=== PATIENT | male | born 1980 | race Caucasian/White ===

== ENCOUNTER → 2020-09-15 15:02 | Outpatient (BNVA) | payer MEDICARE, SELFPAY | PROVIDERS: PCP Hospitalist; Visit Provider Family Medicine Adult Medicine | DX: Z76.89 Persons encountering health services in other specified circumstances (principal) ==

== ENCOUNTER 2020-10-13 | Outpatient (REF) | payer MEDICARE, SELFPAY | END 2020-10-13 00:01 | LOC: CF | PROVIDERS: PCP Hospitalist; Visit Provider Family Medicine Adult Medicine | DX: Z87.81 Personal history of (healed) traumatic fracture (principal); Z79.899 Other long term (current) drug therapy | CPT/HCPCS: 99212; Q3014 ==

== ENCOUNTER → 2020-10-15 13:58 | Outpatient (BNVA) | payer MEDICARE, SELFPAY | PROVIDERS: PCP Hospitalist; Visit Provider Internal Medicine | DX: R07.2 Precordial pain (principal); R94.31 Abnormal electrocardiogram [ECG] [EKG] | CPT/HCPCS: 93005; 99202 ==

== ENCOUNTER → 2020-10-27 08:14 | Outpatient (BNVA) | payer MEDICARE, SELFPAY | PROVIDERS: PCP Hospitalist; Visit Provider Family Medicine Adult Medicine | DX: Z87.81 Personal history of (healed) traumatic fracture (principal) | CPT/HCPCS: 99212 ==

== ENCOUNTER → 2020-11-10 08:33 | Outpatient (REF) | payer MEDICARE, SELFPAY ==
--- NOTE | 2020-11-10 08:37 | CA_ITS ---
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 The visually estimated ejection fraction is between 55-60%. - No obvious valvular pathology seen on this study. Findings Left Ventricle Normal left ventricular cavity size. There is normal left ventricular wall thickness. The left ventricular systolic function is normal. The visually estimated ejection fraction is between 55-60%. There is no evidence of regional wall motion abnormalities. Diastolic function is normal for age. Right Ventricle Normal right ventricular cavity size and systolic function. Atria Both atria are normal in size. Aortic Valve There is a normal trileaflet aortic valve. There is no aortic valve stenosis. There is no aortic valve regurgitation. Mitral Valve The mitral valve appears normal. There is trace mitral valve regurgitation. There is no mitral valve stenosis. Pulmonic Valve The pulmonic valve was not well visualized. Tricuspid Valve Normal tricuspid valve structure. There is trace tricuspid valve regurgitation. The pulmonary artery systolic pressure is normal. Great Vessels The aortic annulus, sinuses of valsalva, and asc aorta are normal in size. Venous The inferior vena cava is normal in size and collapses less than 50% with inspiration. Pericardium/Pleural There is no evidence of pericardial effusion. Prior Study Comparison No prior study available for comparison. Recommendations, Care & Conclusions No obvious valvular pathology seen on this study. Measurements 2D Linear Measurements IVSd: 0.90 0.6-0.9/0.6-1.0 cm LVIDd: 4.51 3.9-5.3/4.2-5.9 cm LVIDd Index: 2.21 2.4-3.2/2.2-3.1 cm/m2 LVIDs: 3.05 2.0-3.6 cm LVPWd: 0.82 0.7-1.1 cm Ao Root: 3.20 2.1-3.5 cm LA Diam: 3.20 2.7-3.8/3.0-4.0 cm LAIDs Index: 1.57 1.5-2.3 cm/m2 LV Mass: 155.59 67-162/88-224 g LV Mass Index: 76.27 43-95/49-115 g/m2 LVOT Diam: 2.40 3.0+(-)1.3 cm Mitral Valve MV Pk E: 0.51 MV PK A: 0.44 MV Decel Time: 137.00 E/A: 1.20 E'Lateral: 16.10 E'Medial: 12.50 E/E' Med: 4.10 E/E' Lat: 3.20 PHT: 40.00 MVA PHT: 5.50 Decel Dillon: 3.74 Aortic Valve AoV Pk Gregory: 0.98 AoV Mn Gregory: 0.63 AoV VTI: 0.22 AoV Pk Grad: 4.00 Aov Mn Grad: 2.00 AMAURY Cont.VTI: 3.03 LVOT LVOT Pk Gregory: 0.66 LVOT Mn Gregory: 0.40 LVOT VTI: 0.14 LVOT Pk Grad: 2.00 LVOT Mn Grad: 1.00 LVOT Diam: 2.40 LVOT Area: 4.52 Diastolic Function MV Pk E: 0.51 MV Pk A: 0.44 E/A: 1.20 E'Medial: 12.50 E/E' Med: 4.10 E' Laterial: 16.10 E/E' Lat: 3.20 Great Vessels Aorta Ao Root-2D: 3.20 2.0-3.7 cm Ao Asc: 3.20 2.1-3.4 cm Pulmonary Valve PV Pk Gregory: 1.05 Peak PV Grad: 4.00 Updated in Other Vendor System with Status of Final Dex Piedra MD electronically signed on 11/10/2020 12:37:38 PM with status of Final
--- NOTE | 2020-11-10 09:30 | CA_ITS ---
Acquisition Time: 2020-11-10 10:24:51 Total Exercise Time: 00:07:39 Test Indications: Chest Pain Medications: Protocol: LOREN Max HR: 190 BPM 104% of Pred: 182 BPM Max BP: 152/080 mmHG Max Work Load: 9.5 METS Exercise stress MIBI using Loren protocol total of 7 min 39 sec. 9.5 METS, MAPHR up to 90 %. Pt c/o 4/10 chest pain feeling like pinching. that resolves in recovery. EKG with no arrhythmias, no ischemic changes. Nuclear images to follow. Normotensive response to exercise. Test reviewed with Dr. Piedra. Referred By: Dex Piedra Overread By: Whit Santos
--- NOTE | 2020-11-10 09:58 | NM_ITS ---
EXERCISE MYOCARDIAL PERFUSION STUDY INDICATION: Chest pain, assess for coronary disease and ischemia TECHNIQUE: The patient was brought in for an exercise perfusion study on 11/10/2020. Patient performed exercise as per Raul protocol and was injected 30 mCi of sestamibi once target heart rate was achieved. Images were obtained using the SPECT gamma camera interlaced with the gating device. Images were obtained in supine position. Resting perfusion study was not performed as the patient refused to return. Total DLP 43mGy-cm. Images were processed with the software and compared side to side in short axis, horizontal long axis and vertical long axis views. FINDINGS: Raw images were reviewed. The stress perfusion study showed mildly diminished tracer uptake in the basal septal wall. With CT attenuation correction this improves suggesting attenuation artifact. The gated study shows normal LV systolic function with calculated LVEF of 73%. LV cavity is normal in size. The gated study shows normal wall thickening and contraction of segments. Resting acquisition was not performed as the patient failed to return. The findings are consistent with small perfusion abnormality in the basal septum that could be artifactual/related to valve plane. Otherwise unremarkable. NM/NM cardiolite stress test IMPRESSION: 1. Myocardial perfusion imaging study shows small perfusion defect in the basal septum that could be artifactual. Otherwise unremarkable. Resting images not acquired as the patient did not return. 2. Gated LVEF is 73%. EKG component of the test reported separately.
== END ==
LOC: HO.CARD 08:33
PROVIDERS: Visit Provider Internal Medicine
DX: R07.2 Precordial pain (principal); I25.10 Atherosclerotic heart disease of native coronary artery without angina pectoris
CPT/HCPCS: 78452; 93017; 93306; A9500

== ENCOUNTER → 2020-12-22 14:02 | Outpatient (BNVA) | payer MEDICARE, OTHER, SELFPAY | PROVIDERS: PCP Hospitalist; Visit Provider Internal Medicine Gastroenterology | DX: D89.40 Mast cell activation, unspecified (principal); M25.50 Pain in unspecified joint | CPT/HCPCS: Q3014 ==

== ENCOUNTER 2021-01-05 08:00 | Outpatient (REF) | payer MEDICARE, SELFPAY ==
--- NOTE | ~2021-01-05 | US_ITS ---
EXAMINATION: US RETROPERITONEUM. CLINICAL INFORMATION: Mast cell disorder. Evaluate celiac or SMA disease COMPARISON: None TECHNIQUE: Color duplex imaging of the abdominal aorta, celiac artery and SMA was performed. FINDINGS: On Doppler imaging, proximal to SMA the abdominal aorta velocity measures 130 cm/sec. Distal to the SMA, the velocity measures 104 cm/sec. The celiac axis velocity measures 164 cm/sec in inspiration supine, 162 cm/sec in expiration supine, upright sitting inspiration velocity measures 160 cm/sec and upright sitting expiration measures 208 cm/sec. Inferior mesenteric artery velocity measures 76.1 cm/sec. Splenic artery velocity measures 84.9 cm/sec. US/US SMA IMPRESSION: 1. Superior mesenteric and celiac artery velocities in supine and upright views are normal. 2. The abdominal aorta is of normal caliber with normal velocity. 3. The main splenic artery velocity is normal as well.
--- NOTE | ~2021-01-05 | US_ITS ---
EXAMINATION: US COMPLETE ABDOMEN WITH LIVER ELASTOGRAPHY CLINICAL INFORMATION: Generalized abdominal pain. Mass cell disorder. COMPARISON: None. TECHNIQUE: Real-time imaging of the abdominal viscera. Noninvasive ultrasound liver fibrosis assessment is performed using Zoey ElastPQ point quantification shear wave elastography (pSWE) with a 5 MHz transducer. Multiple elastography samples are obtained. FINDINGS: PANCREAS: The pancreas is normal in size and contour and echogenicity. There is no pancreatic ductal distention or retroperitoneal effusion. ABDOMINAL AORTA: The proximal, middle, and distal aortic segments are normal in caliber. INFERIOR VENA CAVA: Visualized portions are normal. LIVER: Normal. The liver demonstrates normal size, contour and echogenicity. No focal lesion or intrahepatic biliary duct dilatation. The right lobe measures 14.5 cm in length. The left lobe measures 5.7 cm in length. Portal flow is towards the liver (hepatopetal). Shear wave liver elastography median stiffness is 1.54 m/s (reference: normal median stiffness is 1.3 m/s or less). IQR/median stiffness to assess sampling precision is 0.31 (reference: optimal IQR/median stiffness is 0.15 or less). GALLBLADDER: Normal. The gallbladder is physiologically distended without evidence of stones, sludge, polyps, wall thickening or pericholecystic fluid. COMMON BILE DUCT: Normal in caliber measuring 0.4 cm in diameter. RIGHT KIDNEY: Normal. No hydronephrosis. No renal calculi or focal parenchymal lesions. The kidney measures 10.3 cm in maximum dimension. LEFT KIDNEY: Normal. No hydronephrosis. No renal calculi or focal parenchymal lesions. The kidney measures 10.2 cm in maximum dimension. SPLEEN: Normal. The spleen measures 12.0 cm in maximum dimension. FREE FLUID: None. US/US abdomen comp w elastography IMPRESSION: 1. No cholelithiasis or biliary ductal dilatation. Pancreas unremarkable. 2. Liver normal in size and echogenicity. 3. Liver elastography: Although measurements suggest a low probability of compensated advanced chronic liver disease, there is statistical variability of the sampling which decreases accuracy.
[2021-01-05 10:24] LABS: Anion Gap 12 (12-20); Blood Urea Nitrogen 6 mg/dL (9-16); Calcium 9.4 mg/dL (8.4-10.2); Carbon Dioxide 31 mmol/L (22-29); Chloride 100 mmol/L (96-108); Estimated Glomerular Filt Rate > 60; Glucose Random 102 mg/dL (60-115); Potassium 4.4 mmol/L (3.3-5.1); Sodium 139 mmol/L (135-145)
[2021-01-05 10:49] LABS: Free T4 (Free Thyroxine) 1.21 ng/dL (0.71-1.85); Thyroid Stimulating Hormone 1.11 uIU/mL (0.32-4.0); Vitamin D 25-OH Total 24.2 ng/mL (>30)
[2021-01-08 18:06] LABS: Metanephrine, Free 39 pg/mL (<=57); Normetanephrines, Free 67 pg/mL (<=148); Total Metanephrine, Free 106 pg/mL (<=205)
[2021-01-11 17:56] LABS: Catecholamine Frac, Total 475 pg/mL
== END 2021-01-05 08:01 | disposition home or self-care (01) ==
LOC: HO.US 08:00
PROVIDERS: Internal Medicine; Visit Provider Internal Medicine Gastroenterology
DX: R10.84 Generalized abdominal pain (principal); D47.09 Other mast cell neoplasms of uncertain behavior; R79.89 Other specified abnormal findings of blood chemistry; E55.9 Vitamin D deficiency, unspecified; F41.9 Anxiety disorder, unspecified
CPT/HCPCS: 36415; 76705; 76981; 80048; 82306; 82384; 83835; 84439; 84443; 93976

== ENCOUNTER → 2021-03-16 13:56 | Outpatient (BNVA) | payer OTHER, MEDICARE, SELFPAY | PROVIDERS: PCP Internal Medicine; Visit Provider Internal Medicine Gastroenterology ==

== ENCOUNTER → 2021-05-12 11:36 | Outpatient (BNVA) | payer OTHER, MEDICARE, SELFPAY | PROVIDERS: PCP Internal Medicine; Visit Provider Internal Medicine ==

== ENCOUNTER → 2021-11-01 12:10 | Outpatient (BNVA) | payer OTHER, MEDICARE, SELFPAY | PROVIDERS: PCP Hospitalist; Referring Provider Hospitalist; Visit Provider Internal Medicine Gastroenterology ==

== ENCOUNTER 2021-11-02 07:33 | Emergency (ER) | payer MEDICARE, SELFPAY ==
--- NOTE | ~2021-11-02 | XR_ITS ---
EXAMINATION: XR CHEST CLINICAL INFORMATION: Chest pain COMPARISON: Chest 06/17/2020 TECHNIQUE: 2 views of the chest were obtained. FINDINGS: No significant abnormality is noted involving the heart, lungs, mediastinum, bony thorax or soft tissues. XR/XR chest 2V IMPRESSION: Unremarkable chest examination.
[2021-11-02 07:45] VITALS: BP 136/91; PULSE 80; RESP 16; TEMP 36.9; O2SAT 99; BMI 25.5
--- NOTE | 2021-11-02 08:08 | ED.URI ---
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) Onset (ago): week(s) (2) Consistency: progressively worsening Severity: moderate Description of mucous: clear Able to tolerate fluids by mouth: Yes Exacerbating factors: exertion and deep breaths Relieving factors: nothing Context: other (completed amoxicillin this past week for presumed strep throat) Associated symptoms: chest pain and shortness of breath Treatments prior to arrival: antibiotics Related Data Home Medications Medication Instructions Recorded Confirmed meclizine 12.5 mg tablet 25 mg PO Q8H PRN 10/09/20 10/18/21 ondansetron HCl 8 mg tablet 8 mg PO TID 10/09/20 10/18/21 cyanocobalamin (vitamin B-12) 1,000 mcg PO DAILY 05/12/21 10/18/21 1,000 mcg capsule Previous Rx's Medication Instructions Recorded cromolyn 100 mg/5 mL oral 200 mg (10 mL) PO QID 30 Days 11/02/20 concentrate (Gastrocrom) #1200 ml cholecalciferol (vitamin D3) 10 20 mcg (2 drps) PO DAILY #90 ml 01/06/21 mcg/drop (400 unit/drop) oral drops (Baby Vitamin D3) famotidine 20 mg tablet (Pepcid AC) 20 mg PO TID 90 Days #270 tab 01/11/21 ketoprofen 25 mg capsule See Rx Instructions PO .twice a 01/14/21 day PRN 30 Days #60 cap hydroxyzine HCl 10 mg tablet 20 mg PO Q8H #90 tab 03/18/21 lorazepam 1 mg tablet 1 mg PO TID-QID 31 Days #124 tab 10/13/21 amoxicillin 875 mg tablet 875 mg PO BID 7 Days #14 tab 10/18/21 fentanyl 75 mcg/hr transdermal 1 patch TRANSDERMAL Q48H 30 Days 11/01/21 patch #15 ea sucralfate 1 gram tablet (Carafate) 1 g PO BID #60 tab 11/01/21 albuterol sulfate 90 mcg/actuation 2 puff INHALATION QID PRN #6.7 g 11/02/21 aerosol inhaler Allergies Allergy/AdvReac Type Severity Reaction Status Date / Time nortriptyline [Pamelor] Allergy Severe Blurred Verified 11/01/21 12:12 vision Milk Containing Products Allergy Intermediate stomach Verified 11/01/21 12:12 upset azithromycin [AZITHROMYCIN] AdvReac Severe DIARRHEA, Verified 11/01/21 12:12 stomach pain,vomiting clonidine AdvReac Severe Opposite Verified 11/01/21 12:12 reaction high blood pressure. duloxetine [From CYMBALTA] AdvReac Severe undesired Verified 11/01/21 12:12 effect ibuprofen [IBUPROFEN] AdvReac Severe STOMACH Verified 11/01/21 12:12 UPSET, vomiting meloxicam AdvReac Severe stomach Verified 11/01/21 12:12 upset acetaminophen [From TYLENOL] AdvReac Intermediate STOMACH Verified 11/01/21 12:12 UPSET aspirin AdvReac Intermediate vomiting Verified 11/01/21 12:12 bupropion [From Wellbutrin] AdvReac Intermediate dizziness Verified 11/01/21 12:12 NSAIDS (Non-Steroidal AdvReac Intermediate STOMACH Verified 11/01/21 12:12 Anti-Inflamma UPSET [NSAIDS (NON-STEROIDAL ANTI-INFLAMMA] topiramate [Topamax] AdvReac Intermediate unable to Verified 11/01/21 12:12 tolerate tramadol [Ultram] AdvReac Intermediate Unable to Verified 11/01/21 12:12 tolerate Review of Systems Review of Systems: Constitutional : No Weight loss, No Fever, No Chills ENT/Mouth : No sore throat, No Rhinorrhea Eyes: No Eye Pain, No Swelling Cardiovascular : pos Chest Pain, pos SOB, no Dyspnea on Exertion, No Orthopnea, No Edema, No Palpitations Respiratory : No Cough, No Sputum Gastrointestinal : pos Nausea, No Vomiting, No Diarrhea, No abdominal Pain, No Hematochezia, No Melena Genitourinary : No Dysuria, No Urinary Frequency Musculoskeletal : No joint pain, No Myalgias, No Joint Swelling Skin : No Skin Lesions, No rash Neuro : No Weakness, No Numbness, No Dizziness, No Headache Psych : No Anxiety/Panic, No Depression Heme/Lymph: No Bruising, No Lymphadenopathy Endocrine : No Polyuria, No Polydipsia All other systems reviewed and are negative FOR[facility], [facility] Past Medical History Attestation statement: The following information was validated with the patient. Medical History Anxiety Elevated plasma metanephrines History of femur fracture Mast cell activation syndrome Surgical History Deficient knowledge of leg surgery History of adenoidectomy Family History Family History Father No problems noted. Mother No problems noted. Social History Social History Alcohol intake: never Patient Tobacco Use Status: Former Tobacco user Tobacco use type: Cigarette Cigarettes Per Day: 10 Years Smoked: 5 Substance Use Type: Marijuana Advance Directives: No Advance Directives Information Provided: No Physical Exam Vital Signs: Vital Signs: Last Vital Signs Temp 98.0 F 11/02/21 09:00 Pulse 75 11/02/21 09:00 Resp 18 11/02/21 09:00 BP 127/75 11/02/21 09:00 Pulse Ox 95 11/02/21 09:00 BMI result Body Mass Index 25.5 Appearance: Alert. Oriented X3. No acute distress. Anxious Eyes: Pupils equal, round and reactive to light. ENT: Pharynx normal. Neck: Normal inspection. Neck supple. CVS: Normal heart rate and rhythm. Pulses normal. Respiratory: No respiratory distress. Breath sounds normal. Abdomen: Soft and non-tender. Skin: Skin warm and dry. Normal skin color. Normal skin turgor. Extremities: No lower extremity edema. No calf ttp bounding distal pulses Neuro: Oriented X 3. No motor deficit. No sensory deficit. Course Course Course Narrative: negative chest xray, negative trop, unchanged EKG, COVID negative MDM - URI/Sore Throat MDM Narrative Medical decision making narrative: 41 yo male with hx of anxiety and mast cell activation syndrome here with c/o chest pain and shortness of breath x 2 weeks - he is very anxious on exam he has no tachcyardia no hypoxia no signs of DVT he is PERC negative, symptoms atypical for ACS - will obtain CXR for pneumonia, COVID test, troponin x 1, dispo per results and findings. Lab Data Result diagrams: 11/02/21 08:32 11/02/21 08:32 Labs: Lab Results 11/02/21 11/02/21 11/02/21 Range/Units 07:45 08:32 08:32 WBC 9.7 (4.8-10.8) X10*3/uL RBC 5.55 (4.60-5.80) X10*6/uL Hgb 15.3 (14.0-18.0) g/dl Hct 44.5 (42.0-52.0) % MCV 80.2 (80.0-98.0) fL MCH 27.6 (27.0-33.0) pg MCHC 34.4 (31.0-36.0) g/dl RDW 12.9 (11.0-16.0) % Plt Count 314 (160-400) X10*3/uL MPV 8.8 L (9.4-12.4) fL Immature Gran % (Auto) 0.2 (0.0-0.4) % Neut % (Auto) 69.4 (45-73) % Lymph % (Auto) 20.1 (20-40) % [place] % (Auto) 8.6 (2-11) % Eos % (Auto) 1.4 (0-4) % Baso % (Auto) 0.3 (0-2) % Lymph # (Auto) 1.9 (1.2-4.9) X10*3/uL [place] # (Auto) 0.8 (0.1-1.2) X10*3/uL Eos # (Auto) 0.1 (0.0-0.4) X10*3/uL Baso # (Auto) 0.0 (0.0-0.2) X10*3/uL Abs Immat Gran (auto) 0.02 (0.00-0.03) X10*3/uL Absolute Neuts (auto) 6.7 (2.0-8.3) x10*3/uL Absolute Nucleated RBC 0.000 (0.0-0.012) X10*3/uL Nucleated RBC % (auto) 0.0 (0.0-0.2) /100WBC Sodium 139 (135-145) mmol/L Potassium 4.0 (3.3-5.1) mmol/L Chloride 101 (96-108) mmol/L Carbon Dioxide 25 (22-29) mmol/L Anion Gap 17 (12-20) BUN 8 L (9-16) mg/dL Creatinine 0.86 (0.5-1.4) mg/dL Estim Creat Clear Calc 119.0 Estimated GFR > 60 Random Glucose 97 (60-115) mg/dL Calcium 9.7 (8.4-10.2) mg/dL Troponin I High Sens (<3.5-35.0) ng/L COVID-19 ([facility]) Negative (Negative) COVID-19 Clin Com See Note 11/02/21 Range/Units 08:32 WBC (4.8-10.8) X10*3/uL RBC (4.60-5.80) X10*6/uL Hgb (14.0-18.0) g/dl Hct (42.0-52.0) % MCV (80.0-98.0) fL MCH (27.0-33.0) pg MCHC (31.0-36.0) g/dl RDW (11.0-16.0) % Plt Count (160-400) X10*3/uL MPV (9.4-12.4) fL Immature Gran % (Auto) (0.0-0.4) % Neut % (Auto) (45-73) % Lymph % (Auto) (20-40) % [place] % (Auto) (2-11) % Eos % (Auto) (0-4) % Baso % (Auto) (0-2) % Lymph # (Auto) (1.2-4.9) X10*3/uL [place] # (Auto) (0.1-1.2) X10*3/uL Eos # (Auto) (0.0-0.4) X10*3/uL Baso # (Auto) (0.0-0.2) X10*3/uL Abs Immat Gran (auto) (0.00-0.03) X10*3/uL Absolute Neuts (auto) (2.0-8.3) x10*3/uL Absolute Nucleated RBC (0.0-0.012) X10*3/uL Nucleated RBC % (auto) (0.0-0.2) /100WBC Sodium (135-145) mmol/L Potassium (3.3-5.1) mmol/L Chloride (96-108) mmol/L Carbon Dioxide (22-29) mmol/L Anion Gap (12-20) BUN (9-16) mg/dL Creatinine (0.5-1.4) mg/dL Estim Creat Clear Calc Estimated GFR Random Glucose (60-115) mg/dL Calcium (8.4-10.2) mg/dL Troponin I High Sens < 3.5 (<3.5-35.0) ng/L COVID-19 ([facility]) (Negative) COVID-19 Clin Com ECG Data Attestation: I personally reviewed and interpreted this ECG as follows: ECG interpretation date: 11/02/21 ECG interpretation time: 08:58 Interpretation: Rate: 76 Rhythm: NSR Cutler: normal Normal P waves. Normal CHARLEE. Normal QRS complex. ST T wave : nonspecific, no SUMA qTC: normal prior studies: no acute ischemia no change from May 2020 The study has been interpreted contemporaneously by me. . Discharge Plan Discharge Clinical Impression: Atypical chest pain Patient Disposition: Home, Self-Care Instructions: Chest Pain (ED) Additional Instructions: return to ED for any worsening symptoms or concerns YOUR XRAY, EKG, HEART MARKERS AND BLOOD WORK WERE ALL NORMAL. YOUR COVID TEST WAS NEGATIVE. YOUR OXYGEN LEVELS WERE NORMAL if this continues you may want to try an inhaler to see if this improves your symptoms Prescriptions: New albuterol sulfate 90 mcg/actuation HFA aerosol inhaler 2 puff inhalation QID PRN (Reason: shortness of breath or wheezing) Qty: 6.7 RF: 0 No Action cholecalciferol (vitamin D3) [Baby Vitamin D3] 10 mcg/drop (400 unit/drop) drops 20 mcg PO DAILY Qty: 90 RF: 2 famotidine [Pepcid AC] 20 mg tablet 20 mg PO TID 90 Days Qty: 270 RF: 1 hydroxyzine HCl 10 mg tablet 20 mg PO Q8H Qty: 90 RF: 3 lorazepam 1 mg tablet 1 mg PO TID-QID 31 Days Qty: 124 RF: 0 fentanyl 75 mcg/hr patch 72 hour 1 patch transdermal Q48H 30 Days Qty: 15 RF: 0 ondansetron HCl 8 mg tablet 8 mg PO TID RF: 0 meclizine 12.5 mg tablet 25 mg PO Q8H PRNRF: 0 ketoprofen 25 mg capsule See Rx Instructions PO .twice a day PRN (Reason: pain) 30 Days Qty: 60 RF: 11 amoxicillin 875 mg tablet 875 mg PO BID 7 Days Qty: 14 RF: 0 cromolyn [Gastrocrom] 100 mg/5 mL concentrate 200 mg PO QID 30 Days Qty: 1200 RF: 3 cyanocobalamin (vitamin B-12) 1,000 mcg capsule 1,000 mcg PO DAILY RF: 0 sucralfate [Carafate] 1 gram tablet 1 g PO BID Qty: 60 RF: 3 Referrals: Mary Bower NP [Primary Care Provider] - 2 days
--- NOTE | 2021-11-02 08:21 | ECG_ITS ---
Test Reason : UPPER RESPIRATORY Blood Pressure : / mmHG Vent. Rate : 076 BPM Atrial Rate : 076 BPM P-R Int : 156 ms QRS Dur : 098 ms QT Int : 392 ms P-R-T Axes : 039 019 028 degrees QTc Int : 441 ms Normal sinus rhythm Nonspecific T wave abnormality Abnormal ECG When compared with ECG of 17-JUN-2020 14:12, T wave inversion no longer evident in Anterior leads Referred By: Yanique Thomas Electronically Signed By:Kishan Grimaldo
[2021-11-02 08:26] LABS: COVID-19 Test Negative (Negative)
[2021-11-02 08:42] LABS: MANUAL DIFF FLAG NO
[2021-11-02 08:44] LABS: Basophils Percent Auto 0.3 % (0-2); Eosinophils Absolute Auto 0.1 X10*3/uL (0.0-0.4); Eosinophils Percent Auto 1.4 % (0-4); Hematocrit 44.5 % (42.0-52.0); Hemoglobin 15.3 g/dl (14.0-18.0); Imm Gran Abs Auto 0.02 X10*3/uL (0.00-0.03); Imm Gran Pct Auto 0.2 % (0.0-0.4); Lymphocytes Absolute Auto 1.9 X10*3/uL (1.2-4.9); Lymphocytes Percent Auto 20.1 % (20-40); Mean Corpuscular HGB Conc 34.4 g/dl (31.0-36.0); Mean Corpuscular Hemoglobin 27.6 pg (27.0-33.0); Mean Corpuscular Volume 80.2 fL (80.0-98.0); Mean Platelet Volume 8.8 fL (9.4-12.4); Monocytes Absolute Auto 0.8 X10*3/uL (0.1-1.2); Monocytes Percent Auto 8.6 % (2-11); Neutrophils Absolute Auto 6.7 x10*3/uL (2.0-8.3); Neutrophils Percent Auto 69.4 % (45-73); Platelet Count 314 X10*3/uL (160-400); Red Blood Count 5.55 X10*6/uL (4.60-5.80); Red Cell Distribution Width 12.9 % (11.0-16.0); White Blood Count 9.7 X10*3/uL (4.8-10.8)
[2021-11-02 08:58] LABS: Anion Gap 17 (12-20); Blood Urea Nitrogen 8 mg/dL (9-16); Calcium 9.7 mg/dL (8.4-10.2); Carbon Dioxide 25 mmol/L (22-29); Chloride 101 mmol/L (96-108); Estimated Glomerular Filt Rate > 60; Glucose Random 97 mg/dL (60-115); Sodium 139 mmol/L (135-145)
[2021-11-02 09:00] VITALS: BP 127/75; PULSE 75; RESP 18; TEMP 36.7; O2SAT 95
[2021-11-02 09:06] LABS: Troponin-I High Sensitivity < 3.5 ng/L (<3.5-35.0)
== END 2021-11-02 09:43 | disposition home or self-care (01) ==
PROVIDERS: Emergency Provider Emergency Medicine; PCP Hospitalist
DX: R07.9 Chest pain, unspecified (principal); R06.02 Shortness of breath; Z79.899 Other long term (current) drug therapy; F17.210 Nicotine dependence, cigarettes, uncomplicated; Z71.6 Tobacco abuse counseling; Z20.822 Contact with and (suspected) exposure to COVID-19
CPT/HCPCS: 36415; 71046; 80048; 84484; 85025; 87635; 93005; 99283; 99284

== ENCOUNTER 2022-07-30 10:22 | Observation (INO) | payer OTHER, MEDICARE, SELFPAY ==
--- NOTE | ~2022-07-30 | CT_ITS ---
EXAMINATION: CT ABDOMEN AND PELVIS WITHOUT CONTRAST CLINICAL INFORMATION: Abdominal pain, nausea, vomiting and diarrhea, elevated white blood cells. COMPARISON: None TECHNIQUE: Multidetector volumetric imaging was performed from the superior aspect of the liver through the pubic symphysis. Sagittal and coronal reformatted images were obtained on the technologist's workstation. Lack of intravenous and oral contrast limits visceral evaluation. This CT examination was performed using dose optimization techniques as appropriate, variously including the following: *Automated exposure control *Adjustment of mA and/or kV according to patient size (this includes techniques or standardized protocols for targeted exams where dose is matched to indication/reason for exam; i.e. extremities or head) *Use of iterative reconstruction technique DLP: 505 mGy-cm FINDINGS: LUNG BASES: Subtle groundglass opacities posteriorly in the inferior right middle lobe. The lungs otherwise clear. No pleural or pericardial effusions. LIVER, GALLBLADDER, AND BILIARY TREE: Unremarkable. PANCREAS: Unremarkable. SPLEEN: Unremarkable. ADRENAL GLANDS: Unremarkable. KIDNEYS AND URETERS: The kidneys are normal in size, shape, and attenuation. No hydronephrosis, hydroureter, or calculi seen. No perinephric stranding. BLADDER: Unremarkable. GASTROINTESTINAL TRACT: The stomach, small bowel and appendix are unremarkable. The colon and rectum are unremarkable. ABDOMINAL WALL: No significant hernia is appreciated. LYMPH NODES: No lymphadenopathy. VASCULAR: Unremarkable. PELVIC VISCERA: Unremarkable. OSSEOUS STRUCTURES: L5-S1 is transitional with sacralization of L5 and a rudimentary disc at L5-S1. No acute/suspicious abnormality. Nonacute deformity of the right greater trochanter is noted. CT/CT abdomen pelvis wo IV con IMPRESSION: 1. No acute intra-abdominal/pelvic abnormality to explain the patient's symptoms. 2. Subtle groundglass opacities in the inferior right middle lobe are nonspecific, but could represent a mild infectious/inflammatory process. No other significant abnormality. If the patient is symptomatic, short-term radiographic follow-up is recommended as clinically indicated. Fleischner guidelines were followed.
--- NOTE | ~2022-07-30 | XR_ITS ---
EXAMINATION: XR CHEST CLINICAL INFORMATION: Evaluate groundglass opacity in the right middle lobe seen on abdominal and pelvic CT scan COMPARISON: Abdominal and pelvic CT scan from earlier the same day TECHNIQUE: Frontal view of the chest was obtained. FINDINGS: No significant abnormality is noted involving the heart, lungs, mediastinum, bony thorax or soft tissues. XR/XR chest 1V IMPRESSION: Unremarkable examination.
--- NOTE | 2022-07-30 10:40 | PC.NURSE ---
Pt refused to take 10 Mg of his 20 mg dicyclomine ON SECOND ATTEMPT. Will attempt again in 1o minutes.
[2022-07-30 10:53] VITALS: BP 131/84; PULSE 88; RESP 18; TEMP 36.9; O2SAT 96; BMI 22.3
--- NOTE | 2022-07-30 11:13 | ED.NAVMDI ---
HPI - Nausea/Vomiting/Diarrhea General Chief complaint: Nausea/Vomiting/Diarrhea Stated complaint: VOMITING Time Seen by Provider: 07/30/22 10:47 Source: patient and EMS Mode of arrival: EMS History of Present Illness HPI Narrative: 42-year-old male with past medical history of anxiety, elevated plasma mtanephrines, mast cell activation syndrome, presenting to the ED complaining of diffuse abdominal pain, nausea, vomiting, and diarrhea with inability to tolerate p.o. since this morning. Admits to trying a new food, yams yesterday which may have cause symptoms. also reports low-grade fever this morning 99. Denies dysuria/hematuria, flank pain, recent travel, hematemesis, bloody BMs MD elicited complaint: nausea, vomiting, diarrhea and abdominal pain Onset (ago): day(s) Related Data Home Medications Medication Instructions Recorded Confirmed meclizine 12.5 mg tablet 25 mg PO Q8H PRN 10/09/20 07/07/22 cyanocobalamin (vitamin B-12) 1,000 mcg PO DAILY 05/12/21 07/07/22 1,000 mcg capsule Previous Rx's Medication Instructions Recorded cromolyn 100 mg/5 mL oral 200 mg (10 mL) PO QID 30 days 11/02/20 concentrate (Gastrocrom) #1,200 mL cholecalciferol (vitamin D3) 10 20 mcg (2 drps) PO DAILY #90 mL 01/06/21 mcg/drop (400 unit/drop) oral drops (Baby Vitamin D3) sucralfate 1 gram tablet (Carafate) 1 g PO BID #60 tabs 11/01/21 albuterol sulfate 90 mcg/actuation 2 puff inhalation QID PRN 11/09/21 aerosol inhaler shortness of breath or wheezing 1 month #6.7 grams ondansetron 8 mg disintegrating 8 mg PO Q8H PRN nausea and 11/10/21 tablet vomiting 1 month #60 tabs famotidine 20 mg tablet (Pepcid AC) 20 mg PO TID 3 months #270 tabs 12/24/21 ketoprofen 25 mg capsule See Rx Instructions PO .twice a 12/24/21 day PRN pain 30 days #60 caps hydroxyzine HCl 10 mg tablet 20 mg PO Q8H #90 tabs 12/27/21 naloxone 4 mg/actuation nasal 4 mg intranasal Q2M PRN opioid 03/31/22 spray (Narcan) overdose #2 ea miscellaneous medical supply See Rx Instructions miscellaneous 04/12/22 .COMPLEX hydration #1 ea ubrogepant 100 mg tablet 100 mg PO DAILY PRN migraine 04/26/22 headache #16 tabs fentanyl 75 mcg/hr transdermal 1 patch transdermal Q48H 28 days 07/18/22 patch #14 ea clonazepam 0.5 mg tablet 0.5 mg PO .q4 hours PRN nausea and 07/28/22 vomiting #130 tabs Allergies Allergy/AdvReac Type Severity Reaction Status Date / Time nortriptyline [Pamelor] Allergy Severe Blurred Verified 07/07/22 10:24 vision Milk Containing Products Allergy Intermediate stomach Verified 07/07/22 10:24 upset azithromycin [AZITHROMYCIN] AdvReac Severe DIARRHEA, Verified 07/07/22 10:24 stomach pain,vomiting clonidine AdvReac Severe Opposite Verified 07/07/22 10:24 reaction high blood pressure. duloxetine [From CYMBALTA] AdvReac Severe undesired Verified 07/07/22 10:24 effect ibuprofen [IBUPROFEN] AdvReac Severe STOMACH Verified 07/07/22 10:24 UPSET, vomiting meloxicam AdvReac Severe stomach Verified 07/07/22 10:24 upset acetaminophen [From TYLENOL] AdvReac Intermediate STOMACH Verified 07/07/22 10:24 UPSET aspirin AdvReac Intermediate vomiting Verified 07/07/22 10:24 bupropion [From Wellbutrin] AdvReac Intermediate dizziness Verified 07/07/22 10:24 NSAIDS (Non-Steroidal AdvReac Intermediate STOMACH Verified 07/07/22 10:24 Anti-Inflamma UPSET [NSAIDS (NON-STEROIDAL ANTI-INFLAMMA] topiramate [Topamax] AdvReac Intermediate unable to Verified 07/07/22 10:24 tolerate tramadol [Ultram] AdvReac Intermediate Unable to Verified 07/07/22 10:24 tolerate Review of Systems Review of Systems: Constitutional: Fever, No Chills, No Fatigue, No Malaise ENT/Mouth: No Hearing loss, No Ear Pain, No Nasal Congestion, No sore throat, No Rhinorrhea, No Swallowing Difficulty Eyes: No Eye Pain, No Swelling, No Redness, No Vision Changes Cardiovascular: No Chest Pain, No SOB, No Edema, No Palpitations Respiratory: No Cough, No Sputum, No Wheezing, No Smoke Exposure, No Dyspnea Gastrointestinal: + Nausea, + Vomiting, + Diarrhea, No Constipation, + Abdominal pain, no melena, no hematochezia Genitourinary: No Dysuria, No Urinary Frequency, No Hematuria, No Urinary Incontinence/retention, No Urgency, No Flank Pain Musculoskeletal: No joint pain, No Myalgias, No Joint Swelling Skin: No Skin Lesions, No rash Neuro: No Weakness, No Numbness, No Dizziness, No Headache Yes all other systems are reviewed and are negative Constitutional: Constitutional: Reports as per [facility] Past Medical History Attestation statement: The following information was validated with the patient. Medical History Anxiety Elevated plasma metanephrines History of femur fracture Mast cell activation syndrome Surgical History Deficient knowledge of leg surgery History of adenoidectomy Family History Family History Father No problems noted. Mother No problems noted. Social History Social History Housing: House Alcohol intake: never Patient Tobacco Use Status: Former Tobacco user Tobacco use type: Cigarette Cigarettes Per Day: 10 Years Smoked: 5 e-Cigarette/Vaping Use: Never Used Second Hand Smoke Exposure: No Substance Use Type: Marijuana Advance Directives: No Advance Directives Information Provided: No service: Yes Current occupational status: disabled Cognitive needs: No Hearing needs: No Vision needs: No Physical Exam Vital Signs: Vital Signs: Last Vital Signs Temp 98.8 F 07/30/22 17:52 Pulse 99 07/30/22 17:52 Resp 16 07/30/22 17:52 BP 132/73 07/30/22 17:52 Pulse Ox 96 07/30/22 17:52 O2 Del Method 07/30/22 17:52 BMI result Body Mass Index 22.3 Const: General: cooperative, healthy appearing, no acute distress, alert and poor hygiene Orientation/consciousness: patient oriented x3 Limitations: no limitations HEENT: Head: Yes normal to inspection and Yes atraumatic Ears: hearing grossly normal bilaterally General nose exam: Normal external nose present Face and sinus: Yes normal facial exam Eyes: General: appearance normal, both eyes and all related structures EOM: EOMs intact bilaterally Neck: Neck: Yes normal visual inspection and Yes no meningeal signs Resp: Effort & Inspection: normal respiratory effort and no respiratory distress Auscultation: clear to auscultation bilaterally Cardio: Rate: regular rate Heart sounds: S1 normal heart sound present and S2 normal heart sound present GI: Inspection: Yes normal to inspection Palpation (GI): Soft to palpation, Tenderness to palpation present (GI) in the RLQ and in the RUQ; with no rebound tenderness, no guarding and not rigid : General: Yes no CVA tenderness Back/Spine/Pelvis: Back: no CVA tenderness Skin: Rashes: no rashes Wounds: no wounds Neuro: General: patient oriented x3, tone normal and no meningeal signs Gait exam (Neuro): Normal gait present Extrem: General: Yes normal to inspection Course Course Course Narrative: -1309-- noted leukocytosis of 23.7 > likely reactive from nausea/ vomiting. Lactic/ blood cultures and CT AP ordered. low suspicion for severe sepsis - anion gap 21 suspected from ketosis/dehydration - patient refused morphine as fearful will slow his gut. Ordered Toradol which patient also refused. 1409-- Patient now demanding Dilaudid or will not get CT as cannot lie flat 1443-- patient on CAT scan table refusing IV contrast, will obtain dry CT - lactic acid negative. 1538-- no reported recent emesis from patient's nurse - UA not infected however with >=160 ketones. No evidence of infection >> patient received 2 L IV, will give additional L totaling 3 L of IV fluid CT abdomen pelvis wo IV con IMPRESSION: 1. No acute intra-abdominal/pelvic abnormality to explain the patient's symptoms. 2. Subtle groundglass opacities in the inferior right middle lobe are nonspecific, but could represent a mild infectious/inflammatory process. No other significant abnormality. If the patient is symptomatic, short-term radiographic follow-up is recommended as clinically indicated. ? Fleischner guidelines were followed. > will obtain CXR for further evaluation -1623-- will repeat CBC - CBC with mild improvement of leukocytosis to 19.2. Patient reports he is still unable to tolerate p.o. took 1 sip of Marisol Celine and denies being able to tolerate anything further, does not feel safe for discharge at this time. Will discuss case with hospitalist -1825-- patient admitted for further management MDM - Nausea/Vomiting/Diarrhea MDM Narrative Medical decision making narrative: 42-year-old male with past medical history of anxiety, elevated plasma mtanephrines, mast cell activation syndrome, presenting to the ED complaining of diffuse abdominal pain, nausea, vomiting, and diarrhea with inability to tolerate p.o. since this morning. on exam vital signs stable, nausea and spitting up during evaluation, abdomen soft with RUQ/ RLQ tenderness, no rebound or guarding. Concern for acute on chronic gastritis /abdominal pain vs exacerbation of mast cell activation syndrome vs cholecystitis /cholelithiasis or appendicitis. Diverticulitis on the differential. Rule out metabolic/infectious etiologies. Low concern for severe sepsis plan: Labs, UA, IVF, symptomatic remedies, re-evaluation, +/-CTAP Differential Diagnosis Differential diagnosis: Likely traveler's diarrhea, food poisoning, gastroenteritis and dehydration Medical Records Attestation: I reviewed the patient's medical records. Lab Data Attestation: I reviewed the patient's lab results. Result diagrams: 07/30/22 17:22 07/30/22 12:29 Labs: Lab Results 07/30/22 07/30/22 07/30/22 Range/Units 12:29 12:29 13:54 WBC 23.7 H (4.8-10.8) X10*3/uL RBC 5.55 (4.60-5.80) X10*6/uL Hgb 15.1 (14.0-18.0) g/dl Hct 43.3 (42.0-52.0) % MCV 78.0 L (80.0-98.0) fL MCH 27.2 (27.0-33.0) pg MCHC 34.9 (31.0-36.0) g/dl RDW 12.7 (11.0-16.0) % Plt Count 207 D (160-400) X10*3/uL MPV 9.8 (9.4-12.4) fL Immature Gran % (Auto) 0.6 H (0.0-0.4) % Neut % (Auto) 87.3 H (45-73) % Lymph % (Auto) 5.9 L (20-40) % [place] % (Auto) 5.9 (2-11) % Eos % (Auto) 0.0 (0-4) % Baso % (Auto) 0.3 (0-2) % Lymph # (Auto) 1.4 (1.2-4.9) X10*3/uL [place] # (Auto) 1.4 H (0.1-1.2) X10*3/uL Eos # (Auto) 0.0 (0.0-0.4) X10*3/uL Baso # (Auto) 0.1 (0.0-0.2) X10*3/uL Abs Immat Gran (auto) 0.14 H (0.00-0.03) X10*3/uL Absolute Neuts (auto) 20.7 H (2.0-8.3) x10*3/uL Absolute Nucleated RBC 0.000 (0.0-0.012) X10*3/uL Nucleated RBC % (auto) 0.0 (0.0-0.2) /100WBC Smear Tech's Comments VERIFIED Sodium 138 (135-145) mmol/L Potassium 3.9 (3.3-5.1) mmol/L Chloride 103 (96-108) mmol/L Carbon Dioxide 18 L (22-29) mmol/L Anion Gap 21 H (12-20) BUN 12 (9-16) mg/dL Creatinine 0.86 (0.5-1.4) mg/dL Estim Creat Clear Calc 117.2 Estimated GFR > 60 Random Glucose 100 (60-115) mg/dL Lactic Acid 0.9 (0.5-2.0) mmol/L Calcium 8.3 L D (8.4-10.2) mg/dL Magnesium 1.6 (1.6-2.6) mg/dL Total Bilirubin 1.1 H (0.0-1.0) mg/dL Direct Bilirubin 0.2 (0.0-0.5) mg/dL AST 25 (5-37) U/L ALT 31 (0-40) U/L Alkaline Phosphatase 48 (39-117) U/L Total Protein 6.5 (6.5-8.0) g/dL Albumin 4.0 (3.5-5.0) g/dL Lipase 40 (8-78) U/L Urine Color Urine Appearance Urine pH (5.0-9.0) Ur Specific [place] (1.005-1.025) Urine Protein (Neg-Trace) mg/dL Urine Glucose (UA) (Negative) mg/dL Urine Ketones (Negative) mg/dL Urine Blood (Negative) Urine Nitrite (Negative) Ur Leukocyte Esterase (Negative) COVID-19 ([facility]) (Negative) COVID-19 Clin Com 07/30/22 07/30/22 07/30/22 Range/Units 15:09 15:56 17:22 WBC 19.2 H (4.8-10.8) X10*3/uL RBC 5.36 (4.60-5.80) X10*6/uL Hgb 14.6 (14.0-18.0) g/dl Hct 42.2 (42.0-52.0) % MCV 78.7 L (80.0-98.0) fL MCH 27.2 (27.0-33.0) pg MCHC 34.6 (31.0-36.0) g/dl RDW 12.7 (11.0-16.0) % Plt Count 282 D (160-400) X10*3/uL MPV 8.9 L (9.4-12.4) fL Immature Gran % (Auto) 0.4 (0.0-0.4) % Neut % (Auto) 93.0 H (45-73) % Lymph % (Auto) 4.3 L (20-40) % [place] % (Auto) 2.1 (2-11) % Eos % (Auto) 0.0 (0-4) % Baso % (Auto) 0.2 (0-2) % Lymph # (Auto) 0.8 L (1.2-4.9) X10*3/uL [place] # (Auto) 0.4 (0.1-1.2) X10*3/uL Eos # (Auto) 0.0 (0.0-0.4) X10*3/uL Baso # (Auto) 0.0 (0.0-0.2) X10*3/uL Abs Immat Gran (auto) 0.08 H (0.00-0.03) X10*3/uL Absolute Neuts (auto) 17.9 H (2.0-8.3) x10*3/uL Absolute Nucleated RBC 0.000 (0.0-0.012) X10*3/uL Nucleated RBC % (auto) 0.0 (0.0-0.2) /100WBC Smear Tech's Comments Sodium (135-145) mmol/L Potassium (3.3-5.1) mmol/L Chloride (96-108) mmol/L Carbon Dioxide (22-29) mmol/L Anion Gap (12-20) BUN (9-16) mg/dL Creatinine (0.5-1.4) mg/dL Estim Creat Clear Calc Estimated GFR Random Glucose (60-115) mg/dL Lactic Acid (0.5-2.0) mmol/L Calcium (8.4-10.2) mg/dL Magnesium (1.6-2.6) mg/dL Total Bilirubin (0.0-1.0) mg/dL Direct Bilirubin (0.0-0.5) mg/dL AST (5-37) U/L ALT (0-40) U/L Alkaline Phosphatase (39-117) U/L Total Protein (6.5-8.0) g/dL Albumin (3.5-5.0) g/dL Lipase (8-78) U/L Urine Color Yellow Urine Appearance Clear Urine pH 5.5 (5.0-9.0) Ur Specific [place] 1.025 (1.005-1.025) Urine Protein Trace (Neg-Trace) mg/dL Urine Glucose (UA) Negative (Negative) mg/dL Urine Ketones >=160 (Negative) mg/dL Urine Blood Negative (Negative) Urine Nitrite Negative (Negative) Ur Leukocyte Esterase Negative (Negative) COVID-19 ([facility]) Negative (Negative) COVID-19 Clin Com See Note Discharge Plan Discharge Clinical Impression: Intractable nausea and vomiting, Acute dehydration Patient Disposition: Admitted As Inpatient
[2022-07-30] MEDS: diphenhydrAMINE HCL 50 MG/ML VIAL IVPUSH (11:39)
[2022-07-30] MEDS: Famotidine/PF 20 MG/2 ML VIAL IVPUSH (11:39)
[2022-07-30] MEDS: ondansetron HCL 4 MG/2 ML VIAL IVPUSH (11:39)
[2022-07-30] MEDS: Dicyclomine HCl 10 MG CAPSULE 20 MG PO (11:39)
--- NOTE | 2022-07-30 11:40 | PC.NURSE ---
Pt refused to provide lab sample at this time. He stated I don't want to move my arm. Will reattempt in 10 minutes.
[2022-07-30] MEDS: 0.9 % Sodium Chloride 1,000 ML 999 ML IV ×3 (11:41→17:50)
[2022-07-30 11:53] VITALS: BP 128/97; PULSE 86; RESP 16; O2SAT 98
[2022-07-30] MEDS: LORazepam 1 MG TABLET PO ×2 (12:30→15:41)
[2022-07-30 12:36] LABS: Basophils Absolute Auto 0.1 X10*3/uL (0.0-0.2); Basophils Percent Auto 0.3 % (0-2); Hematocrit 43.3 % (42.0-52.0); Hemoglobin 15.1 g/dl (14.0-18.0); Imm Gran Abs Auto 0.14 X10*3/uL (0.00-0.03); Imm Gran Pct Auto 0.6 % (0.0-0.4); Lymphocytes Absolute Auto 1.4 X10*3/uL (1.2-4.9); Lymphocytes Percent Auto 5.9 % (20-40); MANUAL DIFF FLAG SCAN; Mean Corpuscular HGB Conc 34.9 g/dl (31.0-36.0); Mean Corpuscular Hemoglobin 27.2 pg (27.0-33.0); Mean Platelet Volume 9.8 fL (9.4-12.4); Monocytes Absolute Auto 1.4 X10*3/uL (0.1-1.2); Monocytes Percent Auto 5.9 % (2-11); Neutrophils Absolute Auto 20.7 x10*3/uL (2.0-8.3); Neutrophils Percent Auto 87.3 % (45-73); Platelet Count 207 X10*3/uL (160-400); Red Blood Count 5.55 X10*6/uL (4.60-5.80); Red Cell Distribution Width 12.7 % (11.0-16.0); SCAN SMEAR FLAG 1; White Blood Count 23.7 X10*3/uL (4.8-10.8)
[2022-07-30 12:54] LABS: SLIDE REVIEW VERIFIED
[2022-07-30 13:06] LABS: Alanine Aminotransferase 31 U/L (0-40); Alkaline Phosphatase 48 U/L (39-117); Anion Gap 21 (12-20); Aspartate Amino Transferase 25 U/L (5-37); Bilirubin Direct 0.2 mg/dL (0.0-0.5); Bilirubin Total 1.1 mg/dL (0.0-1.0); Blood Urea Nitrogen 12 mg/dL (9-16); Calcium 8.3 mg/dL (8.4-10.2); Carbon Dioxide 18 mmol/L (22-29); Chloride 103 mmol/L (96-108); Creatinine Clr Calc Pharmacy 117.2; Estimated Glomerular Filt Rate > 60; Glucose Random 100 mg/dL (60-115); Lipase 40 U/L (8-78); Magnesium 1.6 mg/dL (1.6-2.6); Potassium 3.9 mmol/L (3.3-5.1); Sodium 138 mmol/L (135-145); Total Protein 6.5 g/dL (6.5-8.0)
--- NOTE | 2022-07-30 13:09 | PC.NURSE ---
Third attempt to administer 10 mg of dicyclomine, pt refused.
[2022-07-30 13:16] VITALS: BP 148/75; PULSE 89; RESP 16; TEMP 36.8; O2SAT 97
--- NOTE | 2022-07-30 14:08 | PC.NURSE ---
PT REFUSING CT SCAN UNTIL HE RECEIVES ADDITIONAL PAIN MEDS. PT REFUSING TORADOL STATING I CAN'T DO NSAIDS , REQUESTING HYDROMORPHONE ONLY EFFECTIVE RX. PA AWARE. PT CURRENTLY SITTING UP IN BED, CONVERSING FREELY AND EASILY. LINENS CHANGED PT HAS, UP UNTIL NOW, REFUSED TO HAVE BED CHANGED DESPITE HAVING COMPLETED BM IN THE STRETCHER.
[2022-07-30 14:15] VITALS: BP 141/87; PULSE 79; RESP 16; O2SAT 98
[2022-07-30 14:19] LABS: Lactic Acid 0.9 mmol/L (0.5-2.0)
[2022-07-30 15:21] LABS: Appearance Urine Clear; Color Urine Yellow; Glucose Urine UA Negative (Negative); Leukocyte Esterase Urine Negative (Negative); Nitrite Urine Negative (Negative); PH 5.5 (5.0-9.0); Specific Gravity - Urine 1.025 (1.005-1.025); Urine Blood Negative (Negative); Urine Ketones >=160 mg/dL (Negative); Urine Protein Trace mg/dL (Neg-Trace)
--- NOTE | 2022-07-30 16:22 | PC.NURSE ---
PT TOLERATING WATER WITH NO EPISODES OF VOMITING AT THIS TIME.
[2022-07-30 16:28] LABS: COVID-19 Test Negative (Negative)
[2022-07-30 17:26] LABS: MANUAL DIFF FLAG NO
[2022-07-30 17:27] LABS: Basophils Percent Auto 0.2 % (0-2); Hematocrit 42.2 % (42.0-52.0); Hemoglobin 14.6 g/dl (14.0-18.0); Imm Gran Abs Auto 0.08 X10*3/uL (0.00-0.03); Imm Gran Pct Auto 0.4 % (0.0-0.4); Lymphocytes Absolute Auto 0.8 X10*3/uL (1.2-4.9); Lymphocytes Percent Auto 4.3 % (20-40); Mean Corpuscular HGB Conc 34.6 g/dl (31.0-36.0); Mean Corpuscular Hemoglobin 27.2 pg (27.0-33.0); Mean Corpuscular Volume 78.7 fL (80.0-98.0); Mean Platelet Volume 8.9 fL (9.4-12.4); Monocytes Absolute Auto 0.4 X10*3/uL (0.1-1.2); Monocytes Percent Auto 2.1 % (2-11); Neutrophils Absolute Auto 17.9 x10*3/uL (2.0-8.3); Platelet Count 282 X10*3/uL (160-400); Red Blood Count 5.36 X10*6/uL (4.60-5.80); Red Cell Distribution Width 12.7 % (11.0-16.0); SCAN SMEAR FLAG 1; White Blood Count 19.2 X10*3/uL (4.8-10.8)
[2022-07-30 17:52] VITALS: BP 132/73; PULSE 99; RESP 16; TEMP 37.1; O2SAT 96
--- NOTE | 2022-07-30 19:25 | PM.IMHP ---
History of Present Illness Date of Service: 07/30/22 Chief Complaint: Nausea/vomiting 42-year-old male with a past medical history of anxiety, elevated metanephrines, idiopathic hyper eosinophilia, multiple medication allergies presented to the hospital today with a chief complaint of nausea/vomiting. Patient reports that over the past few days he has been having multiple episodes of nausea vomiting. Unable to take anything p.o.. Decreased oral intake. Has not been keeping up with IV fluids. Denies any abdominal pain. Mentioned that he uses cannabis. Denies any alcohol use. Denies any fever chills cough or sputum production. Denies any urinary symptoms. Review of all other systems is negative except mentioned above ER course: Per ER team patient noted a multiple episodes of nausea vomiting, CT abdomen showed no acute findings, noted to have leukocytosis, given IV fluids, symptomatic management but not improved, hence admitted to the hospital for observation [facility] Medical History Anxiety Elevated plasma metanephrines History of femur fracture Mast cell activation syndrome Family History Father No problems noted. Mother No problems noted. Surgical History Deficient knowledge of leg surgery History of adenoidectomy Social History Housing: House Alcohol intake: never Patient Tobacco Use Status: Former Tobacco user Tobacco use type: Cigarette Cigarettes Per Day: 10 Years Smoked: 5 e-Cigarette/Vaping Use: Never Used Second Hand Smoke Exposure: No Substance Use Type: Marijuana Advance Directives: No Advance Directives Information Provided: No service: Yes Current occupational status: disabled Cognitive needs: No Hearing needs: No Vision needs: No Meds Allergies Allergy/AdvReac Type Severity Reaction Status Date / Time nortriptyline [Pamelor] Allergy Severe Blurred Verified 07/07/22 10:24 vision Milk Containing Products Allergy Intermediate stomach Verified 07/07/22 10:24 upset azithromycin [AZITHROMYCIN] AdvReac Severe DIARRHEA, Verified 07/07/22 10:24 stomach pain,vomiting clonidine AdvReac Severe Opposite Verified 07/07/22 10:24 reaction high blood pressure. duloxetine [From CYMBALTA] AdvReac Severe undesired Verified 07/07/22 10:24 effect ibuprofen [IBUPROFEN] AdvReac Severe STOMACH Verified 07/07/22 10:24 UPSET, vomiting meloxicam AdvReac Severe stomach Verified 07/07/22 10:24 upset acetaminophen [From TYLENOL] AdvReac Intermediate STOMACH Verified 07/07/22 10:24 UPSET aspirin AdvReac Intermediate vomiting Verified 07/07/22 10:24 bupropion [From Wellbutrin] AdvReac Intermediate dizziness Verified 07/07/22 10:24 NSAIDS (Non-Steroidal AdvReac Intermediate STOMACH Verified 07/07/22 10:24 Anti-Inflamma UPSET [NSAIDS (NON-STEROIDAL ANTI-INFLAMMA] topiramate [Topamax] AdvReac Intermediate unable to Verified 07/07/22 10:24 tolerate tramadol [Ultram] AdvReac Intermediate Unable to Verified 07/07/22 10:24 tolerate Active Medications: Current Medications Pharmacy Consult (Consult Rx Perform Med Rec) 1 each MISCELLANE ONCE PRN PRN Reason: Consult order Home Medications Medication Instructions Recorded Confirmed Last Taken Type meclizine 12.5 mg tablet 25 mg PO Q8H PRN 10/09/20 07/07/22 Unknown History cyanocobalamin (vitamin B-12) 1,000 mcg PO DAILY 05/12/21 07/07/22 Unknown History 1,000 mcg capsule clonazepam 0.5 mg tablet 1 tab PO Q4H PRN nausea/vomiting 07/30/22 07/30/22 Unknown History cromolyn 100 mg/5 mL oral 300 mg PO QID 07/30/22 Unknown History concentrate (Gastrocrom) lorazepam 1 mg tablet 1 tab PO TID-QID PRN Anxiety 07/30/22 07/30/22 Unknown History Physical Exam Vital Signs and Narrative: Vital Signs: Last Vital Signs Temp 98.8 F 07/30/22 17:52 Pulse 99 07/30/22 17:52 Resp 16 07/30/22 17:52 BP 132/73 07/30/22 17:52 Pulse Ox 96 07/30/22 17:52 O2 Del Method 07/30/22 17:52 BMI result Body Mass Index 22.3 Gen: Appears be in no acute distress HEENT: NCAT, Moist mucosa. Pulmonary: Vesicular breath sounds, fair air entry CVS: Normal S1-S2 Abdomen: BS+, Soft, Nontender Extremities: Warm well perfused Neuro: Alert and awake. Results Labs CBC and Chem 7: 07/30/22 17:22 07/30/22 12:29 Labs: Laboratory Results - last 24 hr 07/30/22 07/30/22 07/30/22 12:29 12:29 13:54 MCV 78.0 L MCH 27.2 MCHC 34.9 RDW 12.7 Plt Count 207 D MPV 9.8 Immature Gran % (Auto) 0.6 H Neut % (Auto) 87.3 H Lymph % (Auto) 5.9 L [place] % (Auto) 5.9 Eos % (Auto) 0.0 Baso % (Auto) 0.3 Lymph # (Auto) 1.4 [place] # (Auto) 1.4 H Eos # (Auto) 0.0 Baso # (Auto) 0.1 Abs Immat Gran (auto) 0.14 H Absolute Neuts (auto) 20.7 H Absolute Nucleated RBC 0.000 Nucleated RBC % (auto) 0.0 Smear Tech's Comments VERIFIED Anion Gap 21 H Estim Creat Clear Calc 117.2 Estimated GFR > 60 Random Glucose 100 Lactic Acid 0.9 Calcium 8.3 L D Magnesium 1.6 Total Bilirubin 1.1 H Direct Bilirubin 0.2 AST 25 ALT 31 Alkaline Phosphatase 48 Total Protein 6.5 Albumin 4.0 Lipase 40 Urine Color Urine Appearance Urine pH Ur Specific [place] Urine Protein Urine Glucose (UA) Urine Ketones Urine Blood Urine Nitrite Ur Leukocyte Esterase COVID-19 ([facility]) COVID-19 Clin Com 07/30/22 07/30/22 07/30/22 15:09 15:56 17:22 MCV 78.7 L MCH 27.2 MCHC 34.6 RDW 12.7 Plt Count 282 D MPV 8.9 L Immature Gran % (Auto) 0.4 Neut % (Auto) 93.0 H Lymph % (Auto) 4.3 L [place] % (Auto) 2.1 Eos % (Auto) 0.0 Baso % (Auto) 0.2 Lymph # (Auto) 0.8 L [place] # (Auto) 0.4 Eos # (Auto) 0.0 Baso # (Auto) 0.0 Abs Immat Gran (auto) 0.08 H Absolute Neuts (auto) 17.9 H Absolute Nucleated RBC 0.000 Nucleated RBC % (auto) 0.0 Smear Tech's Comments Anion Gap Estim Creat Clear Calc Estimated GFR Random Glucose Lactic Acid Calcium Magnesium Total Bilirubin Direct Bilirubin AST ALT Alkaline Phosphatase Total Protein Albumin Lipase Urine Color Yellow Urine Appearance Clear Urine pH 5.5 Ur Specific [place] 1.025 Urine Protein Trace Urine Glucose (UA) Negative Urine Ketones >=160 Urine Blood Negative Urine Nitrite Negative Ur Leukocyte Esterase Negative COVID-19 ([facility]) Negative COVID-19 Clin Com See Note Imaging Radiologist's Impressions: Impressions Abdomen/Pelvis CT 07/30/22 15:00 IMPRESSION: 1. No acute intra-abdominal/pelvic abnormality to explain the patient's symptoms. 2. Subtle groundglass opacities in the inferior right middle lobe are nonspecific, but could represent a mild infectious/inflammatory process. No other significant abnormality. If the patient is symptomatic, short-term radiographic follow-up is recommended as clinically indicated. Fleischner guidelines were followed. Chest X-Ray 07/30/22 15:45 IMPRESSION: Unremarkable examination. Assessment and Plan (1) Acute dehydration: Status: Acute (2) Intractable nausea and vomiting: Status: Acute Plan 42-year-old male with a past medical history of anxiety, elevated metanephrines, idiopathic hyper eosinophilia presented to the hospital today with a chief complaint of nausea/vomiting. Nausea/vomiting: CT abdomen showed no acute findings. Patient uses cannabis-concern for cyclic vomiting syndrome. Supportive care IV fluids Advanced diet as tolerated Leukocytosis: Likely reactive in the setting of nausea/vomiting/dehydration. Will continue to monitor. Follow fever curve. Mast cell activation syndrome/idiopathic hypereosinophilia: Patient has followed up with Hematology-Oncology and has negative workup with negative CHEK2 mutation, BCR-ABL JAK2 mutation, negative IgE/3 days, normal bone marrow biopsy, normal cytogenetics, PDGFRA, PDGFRB, FGFR1 are within normal limits, no clonal B-cell, T-cell population identified; Patient has multiple medication allergies. Patient also workup for pheochromocytoma Patient used to take ketotifen to decrease GI symptoms. Quality Stroke Does the patient have a stroke diagnosis?: No VTE Prior VTE?: No VTE Risk Level:: Medical - moderate - high VTE Device Contraindication: Treatment Not Indicated VTE Drug Contraindication: N/A - Med Ordered
[2022-07-30 19:42] VITALS: BP 114/68; PULSE 84; RESP 16; O2SAT 97
--- NOTE | 2022-07-30 19:43 | PHA.MEDREC ---
Pharmacy Consult ? Medication Reconciliation Pharmacy has completed the medication reconciliation. Patient's medication list complex. Says he takes ketoprofen and ketotifen from special[facility] pharmacy. Cycles between clonazepam and ativan, currently on ativan. He gets a compounded famotidine 20mg tid? that we do not carry. Thanks Lalo
[2022-07-30] MEDS: Heparin Sodium,Porcine 5,000 UNIT/ML VIAL 5000 UNIT SUBCUT (20:06)
[2022-07-30] MEDS: Dextrose 5 % and 0.45 % NaCl 1,000 ML 100 ML IVCONT (20:12)
--- NOTE | 2022-07-31 00:11 | PC.NURSE ---
assumed care of pt at 0011.
[2022-07-31] MEDS: ondansetron HCL 4 MG/2 ML VIAL IVPUSH ×2 (00:12→07:56)
--- NOTE | 2022-07-31 01:47 | PC.NURSE ---
Pt is resting quietly. No apparent distress.
--- NOTE | 2022-07-31 03:00 | PC.NURSE ---
Pt own home meds to Pharmacy, per Lois.
[2022-07-31] MEDS: Dextrose 5 % and 0.45 % NaCl 1,000 ML 100 ML IVCONT (05:59)
[2022-07-31 06:18] LABS: Basophils Absolute Auto 0.1 X10*3/uL (0.0-0.2); Basophils Percent Auto 0.4 % (0-2); Eosinophils Percent Auto 0.3 % (0-4); Hematocrit 40.5 % (42.0-52.0); Hemoglobin 13.9 g/dl (14.0-18.0); Imm Gran Abs Auto 0.05 X10*3/uL (0.00-0.03); Imm Gran Pct Auto 0.3 % (0.0-0.4); Lymphocytes Absolute Auto 4.1 X10*3/uL (1.2-4.9); Lymphocytes Percent Auto 26.1 % (20-40); MANUAL DIFF FLAG NO; Mean Corpuscular HGB Conc 34.3 g/dl (31.0-36.0); Mean Corpuscular Hemoglobin 27.1 pg (27.0-33.0); Mean Corpuscular Volume 78.9 fL (80.0-98.0); Mean Platelet Volume 8.9 fL (9.4-12.4); Monocytes Absolute Auto 1.3 X10*3/uL (0.1-1.2); Neutrophils Absolute Auto 10.3 x10*3/uL (2.0-8.3); Neutrophils Percent Auto 64.9 % (45-73); Platelet Count 304 X10*3/uL (160-400); Red Blood Count 5.13 X10*6/uL (4.60-5.80); Red Cell Distribution Width 12.7 % (11.0-16.0); White Blood Count 15.8 X10*3/uL (4.8-10.8)
[2022-07-31 06:19] VITALS: BP 136/84; PULSE 85; RESP 18; TEMP 37.2; O2SAT 98
[2022-07-31 06:35] LABS: Anion Gap 16 (12-20); Blood Urea Nitrogen 5 mg/dL (9-16); Carbon Dioxide 21 mmol/L (22-29); Chloride 104 mmol/L (96-108); Creatinine Clr Calc Pharmacy 124.4; Estimated Glomerular Filt Rate > 60; Glucose Random 116 mg/dL (60-115); Potassium 3.8 mmol/L (3.3-5.1); Sodium 137 mmol/L (135-145)
[2022-07-31] MEDS: Heparin Sodium,Porcine 5,000 UNIT/ML VIAL 5000 UNIT SUBCUT (07:57)
[2022-07-31 08:00] VITALS: BP 149/68; PULSE 65; RESP 17; TEMP 37; O2SAT 98
--- NOTE | 2022-07-31 10:53 | P.PNIM_ITS ---
Subjective Subjective Date of Service: 07/31/22 Interval History: Nausea improved but still present. No active vomiting. Tolerating diet Review of Systems denies chest pain Denies shortness of breath Denies nausea vomiting diarrhea Den Physical Exam Vital Signs: Vital Signs: Last Vital Signs Temp 98.6 F 07/31/22 08:00 Pulse 65 07/31/22 08:00 Resp 17 07/31/22 08:00 BP 149/68 H 07/31/22 08:00 Pulse Ox 98 07/31/22 08:00 O2 Del Method 07/31/22 08:00 BMI result Body Mass Index 22.3 Const: Other: no acute distress HEENT: Other: membranes moist Resp: Other: clear to auscultation bilaterally no rales rhonchi or wheezes Cardio: Other: no S4; positive S1-S2; no S3 murmurs rubs or gallops GI: Other: soft nontender nondistended normoactive bowel sounds. Extrem: Other: No edema bilaterally Objective Data Active Medications Albuterol Sulfate (Albuterol Sulfate 90 Mcg 8 Gm Inhaler) 2 puff INHALE QID PRN PRN Reason: shortness of breath or wheezing Famotidine (Famotidine 20 Mg Tablet) 20 mg PO TID [facility] Last Admin: 07/31/22 08:58 Dose: Not Given Documented By: DONALD Non-Admin Reason: Taken at Home Fentanyl (Fentanyl 75 Mcg Patch.Td72) 75 mcg TRANSDERMA Q48H [facility] Heparin Sodium (Porcine) (Heparin Sodium,Porcine 5,000 Unit/Ml Vial) 5,000 unit SUBCUT Q8H [facility] Last Admin: 07/31/22 07:57 Dose: 5,000 unit Documented By: DONALD Dextrose/Sodium Chloride (D51/2ns) 1,000 mls @ 100 mls/hr IVCONT .Q10H [facility] Last Admin: 07/31/22 05:59 Dose: 100 mls/hr Documented By: ELIAS Lorazepam (Lorazepam 1 Mg Tablet) 1 mg PO QID PRN PRN Reason: Anxiety Meclizine HCl (Meclizine Hcl 25 Mg Tablet) 25 mg PO Q8H PRN PRN Reason: Dizziness Melatonin (Melatonin 3 Mg Tablet) 6 mg PO BEDTIME PRN PRN Reason: Insomnia Non-Formulary Medication (Ubrogepant) 100 mg PO DAILY PRN PRN Reason: migraine headache Pt Own (Cromolyn [ Gastrocrom] 100 Mg/5 Ml Concentrate) 300 mg PO QID [facility] Last Admin: 07/31/22 10:05 Dose: Not Given Documented By: DONALD Non-Admin Reason: Taken at Home Pt Own (Hydroxyzine Hcl 10 Mg [Teva Mfg] ) 20 mg PO Q8H [facility] Ondansetron HCl (Ondansetron Hcl 4 Mg/2 Ml Vial) 4 mg IVPUSH Q8H PRN PRN Reason: Nausea and Vomiting Last Admin: 07/31/22 07:56 Dose: 4 mg Documented By: DONALD Ondansetron HCl (Ondansetron Odt 8 Mg Tab.Rapdis) 8 mg TRANSLINGU Q8H PRN PRN Reason: nausea and vomiting Pharmacy Consult (Consult Rx Perform Med Rec) 1 each MISCELLANE ONCE PRN PRN Reason: Consult order Senna (Sennosides 8.6 Mg Tablet) 17.2 mg PO BEDTIME PRN PRN Reason: Constipation Sodium Chloride (0.9 % Sodium Chloride Flush 3 Ml Syringe) 3 ml IVFLUSH QSHIFT [facility] Last Admin: 07/31/22 07:22 Dose: Not Given Documented By: DONALD Non-Admin Reason: IV Running Sucralfate (Sucralfate 1 Gm Tablet) 1 gm PO BID PRN PRN Reason: Acid Reflux Labs CBC & Chem 7: 07/31/22 06:09 07/31/22 06:09 Labs: Laboratory Results - last 24 hr 07/30/22 07/30/22 07/30/22 12:29 12:29 13:54 MCV 78.0 L MCH 27.2 MCHC 34.9 RDW 12.7 Plt Count 207 D MPV 9.8 Immature Gran % (Auto) 0.6 H Neut % (Auto) 87.3 H Lymph % (Auto) 5.9 L [place] % (Auto) 5.9 Eos % (Auto) 0.0 Baso % (Auto) 0.3 Lymph # (Auto) 1.4 [place] # (Auto) 1.4 H Eos # (Auto) 0.0 Baso # (Auto) 0.1 Abs Immat Gran (auto) 0.14 H Absolute Neuts (auto) 20.7 H Absolute Nucleated RBC 0.000 Nucleated RBC % (auto) 0.0 Smear Tech's Comments VERIFIED Anion Gap 21 H Estim Creat Clear Calc 117.2 Estimated GFR > 60 Random Glucose 100 Lactic Acid 0.9 Calcium 8.3 L D Magnesium 1.6 Total Bilirubin 1.1 H Direct Bilirubin 0.2 AST 25 ALT 31 Alkaline Phosphatase 48 Total Protein 6.5 Albumin 4.0 Lipase 40 Urine Color Urine Appearance Urine pH Ur Specific [place] Urine Protein Urine Glucose (UA) Urine Ketones Urine Blood Urine Nitrite Ur Leukocyte Esterase COVID-19 ([facility]) COVID-19 Clin Com 07/30/22 07/30/22 07/30/22 15:09 15:56 17:22 MCV 78.7 L MCH 27.2 MCHC 34.6 RDW 12.7 Plt Count 282 D MPV 8.9 L Immature Gran % (Auto) 0.4 Neut % (Auto) 93.0 H Lymph % (Auto) 4.3 L [place] % (Auto) 2.1 Eos % (Auto) 0.0 Baso % (Auto) 0.2 Lymph # (Auto) 0.8 L [place] # (Auto) 0.4 Eos # (Auto) 0.0 Baso # (Auto) 0.0 Abs Immat Gran (auto) 0.08 H Absolute Neuts (auto) 17.9 H Absolute Nucleated RBC 0.000 Nucleated RBC % (auto) 0.0 Smear Tech's Comments Anion Gap Estim Creat Clear Calc Estimated GFR Random Glucose Lactic Acid Calcium Magnesium Total Bilirubin Direct Bilirubin AST ALT Alkaline Phosphatase Total Protein Albumin Lipase Urine Color Yellow Urine Appearance Clear Urine pH 5.5 Ur Specific [place] 1.025 Urine Protein Trace Urine Glucose (UA) Negative Urine Ketones >=160 Urine Blood Negative Urine Nitrite Negative Ur Leukocyte Esterase Negative COVID-19 ([facility]) Negative COVID-19 Clin Com See Note 07/31/22 07/31/22 06:09 06:09 MCV 78.9 L MCH 27.1 MCHC 34.3 RDW 12.7 Plt Count 304 MPV 8.9 L Immature Gran % (Auto) 0.3 Neut % (Auto) 64.9 Lymph % (Auto) 26.1 [place] % (Auto) 8.0 Eos % (Auto) 0.3 Baso % (Auto) 0.4 Lymph # (Auto) 4.1 [place] # (Auto) 1.3 H Eos # (Auto) 0.0 Baso # (Auto) 0.1 Abs Immat Gran (auto) 0.05 H Absolute Neuts (auto) 10.3 H Absolute Nucleated RBC 0.000 Nucleated RBC % (auto) 0.0 Smear Tech's Comments Anion Gap 16 Estim Creat Clear Calc 124.4 Estimated GFR > 60 Random Glucose 116 H Lactic Acid Calcium 9.0 D Magnesium Total Bilirubin Direct Bilirubin AST ALT Alkaline Phosphatase Total Protein Albumin Lipase Urine Color Urine Appearance Urine pH Ur Specific [place] Urine Protein Urine Glucose (UA) Urine Ketones Urine Blood Urine Nitrite Ur Leukocyte Esterase COVID-19 ([facility]) COVID-19 Clin Com Assessment and Plan (1) Intractable nausea and vomiting: Status: Acute (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
[2022-07-31 11:35] VITALS: BP 136/75; PULSE 95; RESP 18; TEMP 36.5; O2SAT 99
--- NOTE | 2022-07-31 12:07 | PC.NURSE ---
pt noncompliant with hospital protocol regarding home medications. Pt prefers to follow at home medication schedule. Protocol explained by this RN and Dr. Majano. Dr Majano aware.
--- NOTE | 2022-07-31 12:44 | MHC.CM.PN ---
PT REPORTS HE LIVES WITH HIS AND TWINS THAT ARE UNDER ONE YEAR OLD HE REPORTS HE IS INDEPENDENT WITH CARE, USES NO HOME SERVICES AND A SHOWER CHAIR FOR DME PT REPORTS HIS PCP IS AUNDREA ARANA HE COMPLETED A HCP TODAY NAMING HIS , DENIA, HIS AGENT PT REPORTS HE DID NOT GET THE COVID VAX DUE TO PRE-EXISTING HEALTH CONCERNS OBSERVATION NOTICE DELIVERED PT WILL DC HOME LATER TODAY WITH NO SERVICES PT WILL ARRANGE TRANSPORT
[2022-07-31] MEDS: HYDROmorphone HCl 0.5 MG/0.5 ML SYRINGE IVPUSH (13:35)
[2022-07-31] MEDS: Famotidine 20 MG TABLET PO (13:35)
[2022-07-31] MEDS: LORazepam 1 MG TABLET PO (13:47)
--- NOTE | 2022-07-31 14:33 | P.DS_ITS ---
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 Patient reports that over the past few days he has been having multiple episodes of nausea vomiting.? Unable to take anything p.o..? Decreased oral intake.? Has not been keeping up with IV fluids.? Denies any abdominal pain.? Mentioned that he uses cannabis.? Denies any alcohol use.? Denies any fever chills cough or sputum production.? Denies any urinary symptoms.? Review of all other systems is negative except mentioned above ER course: Per ER team patient noted a multiple episodes of nausea vomiting, CT abdomen showed no acute findings, noted to have leukocytosis, given IV fluids, symptomatic management but not improved, hence admitted to the hospital for observation Hospital Course patient admitted overnight with IV fluids. Over the course of 24 hours symptoms improved. He did have issues with administration of his fentanyl patch however given the fact that he was improved as related to his admitting symptoms it was decided that he would be discharged to home and follow-up with his PCP Time Spent with Patient Time attestation: Total time spent providing and/or coordinating discharge services: Discharge coordination time: Greater than 30 minutes Quality: Safe Use of Opioids Does Pt have an Active Cancer Diagnosis on the Problem List?: No Quality: Stroke Does the patient have a stroke diagnosis?: No Physical Exam Vital Signs: Vital Signs: Last Vital Signs Temp 97.7 F 07/31/22 11:35 Pulse 95 07/31/22 11:35 Resp 18 07/31/22 11:35 BP 136/75 07/31/22 11:35 Pulse Ox 99 07/31/22 11:35 O2 Del Method 07/31/22 11:35 BMI result Body Mass Index 22.3 Const: Other: no acute distress HEENT: Other: membranes moist Resp: Other: clear to auscultation bilaterally no rales rhonchi or wheezes Cardio: Other: no S4; positive S1-S2; no S3 murmurs rubs or gallops GI: Other: soft nontender nondistended normoactive bowel sounds. Extrem: Other: No edema bilaterally DS: Data Data Completed and Pending Labs on day of discharge: Laboratory Results - last 24 hr 07/30/22 07/30/22 07/30/22 15:09 15:56 17:22 WBC 19.2 H RBC 5.36 Hgb 14.6 Hct 42.2 MCV 78.7 L MCH 27.2 MCHC 34.6 RDW 12.7 Plt Count 282 D MPV 8.9 L Immature Gran % (Auto) 0.4 Neut % (Auto) 93.0 H Lymph % (Auto) 4.3 L [place] % (Auto) 2.1 Eos % (Auto) 0.0 Baso % (Auto) 0.2 Lymph # (Auto) 0.8 L [place] # (Auto) 0.4 Eos # (Auto) 0.0 Baso # (Auto) 0.0 Abs Immat Gran (auto) 0.08 H Absolute Neuts (auto) 17.9 H Absolute Nucleated RBC 0.000 Nucleated RBC % (auto) 0.0 Sodium Potassium Chloride Carbon Dioxide Anion Gap BUN Creatinine Estim Creat Clear Calc Estimated GFR Random Glucose Calcium Urine Color Yellow Urine Appearance Clear Urine pH 5.5 Ur Specific [place] 1.025 Urine Protein Trace Urine Glucose (UA) Negative Urine Ketones >=160 Urine Blood Negative Urine Nitrite Negative Ur Leukocyte Esterase Negative COVID-19 ([facility]) Negative COVID-19 Clin Com See Note 07/31/22 07/31/22 06:09 06:09 WBC 15.8 H RBC 5.13 Hgb 13.9 L Hct 40.5 L MCV 78.9 L MCH 27.1 MCHC 34.3 RDW 12.7 Plt Count 304 MPV 8.9 L Immature Gran % (Auto) 0.3 Neut % (Auto) 64.9 Lymph % (Auto) 26.1 [place] % (Auto) 8.0 Eos % (Auto) 0.3 Baso % (Auto) 0.4 Lymph # (Auto) 4.1 [place] # (Auto) 1.3 H Eos # (Auto) 0.0 Baso # (Auto) 0.1 Abs Immat Gran (auto) 0.05 H Absolute Neuts (auto) 10.3 H Absolute Nucleated RBC 0.000 Nucleated RBC % (auto) 0.0 Sodium 137 Potassium 3.8 Chloride 104 Carbon Dioxide 21 L Anion Gap 16 BUN 5 L D Creatinine 0.81 Estim Creat Clear Calc 124.4 Estimated GFR > 60 Random Glucose 116 H Calcium 9.0 D Urine Color Urine Appearance Urine pH Ur Specific [place] Urine Protein Urine Glucose (UA) Urine Ketones Urine Blood Urine Nitrite Ur Leukocyte Esterase COVID-19 ([facility]) COVID-19 Clin Com Discharge Plan Discharge Patient Disposition: Home, Self-Care Discharge Diagnosis: intractable vomiting Referrals: Mary Bower, END USER CONSULTANT [Primary Care Provider] - 1 Week Discharge Medications: Continued famotidine [Pepcid AC] 20 mg tablet 20 mg PO TID 90 Days Qty: 270 1RF ketoprofen 25 mg capsule See Rx Instructions PO .twice a day PRN (Reason: pain) 30 Days Qty: 60 11RF Rx Instructions: 1 mg PO .twice a day PRN; naloxone [Narcan] 4 mg/actuation spray,non-aerosol 4 mg intranasal Q2M PRN (Reason: opioid overdose) Qty: 2 2RF Rx Instructions: spray 1 dose into ONE nostril; alternate nostrils w each dose until help arrives ubrogepant 100 mg tablet 100 mg PO DAILY PRN (Reason: migraine headache) Qty: 16 5RF Rx Instructions: If patient is able to get more tablets per month please send the amount allowed for one month please and if needed resend request for medication lorazepam 1 mg tablet 1 tab PO TID-QID PRN (Reason: Anxiety) cromolyn [Gastrocrom] 100 mg/5 mL concentrate 300 mg PO QID sucralfate [Carafate] 1 gram tablet 1 g PO BID PRN (Reason: Acid Reflux) hydroxyzine HCl 10 mg tablet 20 mg PO Q6-8H Rx Instructions: TEVA brand only PT TAKES 4-8/DAY fentanyl 75 mcg/hr Patch 72 Hour 0.5 patch TRANSDERMAL Q48H meclizine 12.5 mg tablet 25 mg PO Q8H PRN (Reason: Dizziness) albuterol sulfate 90 mcg/actuation HFA aerosol inhaler 2 puff inhalation QID PRN (Reason: shortness of breath or wheezing) 30 Days Qty: 6.7 4RF ondansetron 8 mg tablet,disintegrating 8 mg PO Q8H PRN (Reason: nausea and vomiting) 30 Days Qty: 60 1RF Discharge Orders: Discharge Order (Routine); Ordered 07/31/22 Ordered By: Sedrick Majano Diet: Advance to usual diet Activity on Discharge: As tolerated Stand Alone Forms: Patient Portal Discharge page Care Plan Goals: resume all meds prior to hospital Health Concerns: follow-up with PCP in 2 weeks Plan of Treatment: gradually advance diet Assessment: see discharge summary
[2022-07-31 15:02] VITALS: BP 131/78; PULSE 65; RESP 18; TEMP 37; O2SAT 97
== END 2022-07-31 15:48 | disposition home or self-care (01) ==
LOC: HO.ED 18:28 → HO.EDOVER 19:59 → HO.S3 07-31 05:29
PROVIDERS: Physician Assistant; Admitting Provider Hospitalist; Emergency Provider Emergency Medicine; PCP Hospitalist; Visit Provider Hospitalist
DX: R11.2 Nausea with vomiting, unspecified (principal); E86.0 Dehydration; D89.40 Mast cell activation, unspecified; R10.9 Unspecified abdominal pain; F12.90 Cannabis use, unspecified, uncomplicated; Z20.822 Contact with and (suspected) exposure to COVID-19; Z79.899 Other long term (current) drug therapy; Z87.891 Personal history of nicotine dependence
CPT/HCPCS: 36415; 71045; 74176; 80048; 80076; 81003; 83605; 83690; 83735; 85025; 87040; 87635; 96361; 96365; 96366; 96375; 99218; 99285; J1170; J1200; J2405

== ENCOUNTER → 2022-08-19 10:27 | Outpatient (BNVA) | payer MEDICARE, SELFPAY | PROVIDERS: PCP Hospitalist; Visit Provider Internal Medicine Gastroenterology | DX: K29.70 Gastritis, unspecified, without bleeding (principal) | CPT/HCPCS: Q3014 ==

== ENCOUNTER 2022-10-05 06:35 | Emergency (ER) | payer OTHER, SELFPAY ==
--- NOTE | ~2022-10-05 | CT_ITS ---
EXAMINATION: CT ABDOMEN AND PELVIS WITHOUT CONTRAST CLINICAL INFORMATION: Right-sided abdominal pain, rule out appendicitis. COMPARISON: 07/30/2022 CT scan of the abdomen and pelvis. TECHNIQUE: Multidetector volumetric imaging was performed from the superior aspect of the liver through the pubic symphysis. Sagittal and coronal reformatted images were obtained on the technologist's workstation. Lack of intravenous and oral contrast limits visceral evaluation. This CT examination was performed using dose optimization techniques as appropriate, variously including the following: *Automated exposure control *Adjustment of mA and/or kV according to patient size (this includes techniques or standardized protocols for targeted exams where dose is matched to indication/reason for exam; i.e. extremities or head) *Use of iterative reconstruction technique DLP: 447 mGy-cm FINDINGS: LUNG BASES: The visualized lung bases are unremarkable. LIVER, GALLBLADDER, AND BILIARY TREE: Unremarkable. PANCREAS: Unremarkable. SPLEEN: Unremarkable. ADRENAL GLANDS: Unremarkable. KIDNEYS AND URETERS: The kidneys are normal in size, shape, and attenuation. No hydronephrosis, hydroureter, or calculi seen. No perinephric stranding. BLADDER: Unremarkable. GASTROINTESTINAL TRACT: The stomach and small bowel unremarkable. The appendix is unremarkable. No evidence for acute appendicitis. The colon and rectum are unremarkable. ABDOMINAL WALL: No significant hernia is appreciated. LYMPH NODES: Normal. VASCULAR: Unremarkable. PELVIC VISCERA: Unremarkable. OSSEOUS STRUCTURES: L5-S1 is transitional with sacralization of L5 and a rudimentary disc at L5-S1. No suspicious abnormality. CT/CT abdomen pelvis wo IV con IMPRESSION: 1. No acute intra-abdominal/pelvic abnormality to explain the patient's symptoms. No evidence for acute appendicitis. No other significant abnormality.
[2022-10-05 06:52] VITALS: BP 139/102; PULSE 95; RESP 15; TEMP 36.6; O2SAT 95; BMI 19.5
[2022-10-05 08:04] LABS: Influenza A PCR NEGATIVE (Negative); Influenza B PCR NEGATIVE (Negative); Resp Syncy Virus RNA Qual PCR NEGATIVE (Negative); SARS COV2 PCR INHOUSE NEGATIVE (Negative)
[2022-10-05 08:59] VITALS: BP 135/88; PULSE 86; RESP 16; O2SAT 97
--- NOTE | 2022-10-05 09:15 | ED.GENADULT ---
HPI - General Adult General Chief complaint: General Medical Stated complaint: Fever/Chills/Abd pain Time Seen by Provider: 10/05/22 09:14 History of Present Illness HPI narrative: Patient complains of 1 day of nausea vomiting and diarrhea feeling somewhat weak feeling a pain in the mid to right side of his abdomen, denies any blood in the vomitus or the stool, he tried eating 2 bites of oatmeal this morning and did vomit, he says whenever he tries to drink anything he vomits He has had similar symptoms in the past Related Data Home Medications Medication Instructions Recorded Confirmed meclizine 12.5 mg tablet 25 mg PO Q8H PRN Dizziness 10/09/20 09/15/22 cromolyn 100 mg/5 mL oral 300 mg PO QID 07/30/22 09/15/22 concentrate (Gastrocrom) sucralfate 1 gram tablet (Carafate) 1 g PO BID PRN Acid Reflux 07/30/22 09/15/22 Previous Rx's Medication Instructions Recorded albuterol sulfate 90 mcg/actuation 2 puff inhalation QID PRN 11/09/21 aerosol inhaler shortness of breath or wheezing 1 month #6.7 grams ondansetron 8 mg disintegrating 8 mg PO Q8H PRN nausea and 11/10/21 tablet vomiting 1 month #60 tabs famotidine 20 mg tablet (Pepcid AC) 20 mg PO TID 3 months #270 tabs 12/24/21 ketoprofen 25 mg capsule See Rx Instructions PO .twice a 12/24/21 day PRN pain 30 days #60 caps naloxone 4 mg/actuation nasal 4 mg intranasal Q2M PRN opioid 03/31/22 spray (Narcan) overdose #2 ea ubrogepant 100 mg tablet 100 mg PO DAILY PRN migraine 04/26/22 headache #16 tabs hydroxyzine HCl 10 mg tablet 20 mg PO Q6-8H #180 tabs 08/02/22 fentanyl 50 mcg/hr transdermal 1 patch transdermal Q48H #14 ea 09/14/22 patch lorazepam 1 mg tablet 1 mg PO TID-QID anxiety 28 days 10/05/22 #112 tabs Allergies Allergy/AdvReac Type Severity Reaction Status Date / Time nortriptyline [Pamelor] Allergy Severe Blurred Verified 09/15/22 14:26 vision Milk Containing Products Allergy Intermediate stomach Verified 09/15/22 14:26 upset azithromycin [AZITHROMYCIN] AdvReac Severe DIARRHEA, Verified 09/15/22 14:26 stomach pain,vomiting clonidine AdvReac Severe Opposite Verified 09/15/22 14:26 reaction high blood pressure. duloxetine [From CYMBALTA] AdvReac Severe undesired Verified 09/15/22 14:26 effect ibuprofen [IBUPROFEN] AdvReac Severe STOMACH Verified 09/15/22 14:26 UPSET, vomiting meloxicam AdvReac Severe stomach Verified 09/15/22 14:26 upset acetaminophen [From TYLENOL] AdvReac Intermediate STOMACH Verified 09/15/22 14:26 UPSET aspirin AdvReac Intermediate vomiting Verified 09/15/22 14:26 bupropion [From Wellbutrin] AdvReac Intermediate dizziness Verified 09/15/22 14:26 NSAIDS (Non-Steroidal AdvReac Intermediate STOMACH Verified 09/15/22 14:26 Anti-Inflamma UPSET [NSAIDS (NON-STEROIDAL ANTI-INFLAMMA] topiramate [Topamax] AdvReac Intermediate unable to Verified 09/15/22 14:26 tolerate tramadol [Ultram] AdvReac Intermediate Unable to Verified 09/15/22 14:26 tolerate morphine AdvReac flushed Uncoded 09/15/22 14:26 Review of Systems Review of Systems: Positive for abdominal pain vomiting and mild diarrhea Negatives no fever no chills no dizziness weakness no fainting no feeling faint no headache no neck pain no chest pain no shortness of breath no blood in the stool no blood in the vomitus no dysuria no skin rash Yes all other systems are reviewed and are negative PMFSH Past Medical History Source: nursing notes reviewed Medical History Anxiety Elevated plasma metanephrines History of femur fracture Mast cell activation syndrome Surgical History Deficient knowledge of leg surgery History of adenoidectomy Family History Family History Father No problems noted. Mother No problems noted. Social History Social History Housing: House Alcohol intake: never Patient Tobacco Use Status: Never used Tobacco Tobacco use type: Cigarette Cigarettes Per Day: 10 Years Smoked: 5 e-Cigarette/Vaping Use: Never Used Second Hand Smoke Exposure: No Substance Use Type: Marijuana Advance Directives Date on File: 08/02/22 service: Yes Current occupational status: disabled Cognitive needs: No Hearing needs: No Vision needs: No Physical Exam ED Vital Signs: Vital Signs - 24 hr 10/05/22 06:52 10/05/22 08:59 Temperature 97.9 F Pulse Rate 95 86 Respiratory Rate 15 16 Blood Pressure 139/102 H 135/88 Pulse Oximetry 95 97 Oxygen Delivery Method Room Air Room Air BMI result Body Mass Index 19.5 General appearance is no acute distress Eyes are anicteric no pallor The pharynx is mildly dry there is no redness swelling or exudate mucous membranes are mildly dry Neck is supple Chest clear to auscultation bilateral no respiratory distress The abdomen had some mild tenderness in the epigastric and right mid abdomen area, no rebound no guarding Extremities full range of motion x4 Skin turgor was normal, no rashes Neuro no focal deficits Course Course Course Narrative: CT of abdomen was done without any acute findings there was no obstruction there was no evidence of appendicitis Abdominal exam was repeated after the negative CT and there was no tenderness at all on the right side or over the appendix, still mild epigastric tenderness no rebound no guarding Labs were checked with out any significant abnormalities Patient responded well to hydration and Zofran and was comfortable without abdominal pain or nausea after the completion of 2 L Patient was discharged home improved Medications Administered Discontinued Medications Generic Name Dose Route Start Last Admin Trade Name Freq PRN Reason Stop Dose Admin Famotidine 20 mg 10/05/22 10:01 10/05/22 10:14 Famotidine/Pf 20 Mg/2 Ml Vial IVPUSH 10/05/22 10:02 20 mg ONCE ONE Administration Hydroxyzine HCl 25 mg 10/05/22 12:08 10/05/22 12:15 Hydroxyzine Hcl 25 Mg Tablet PO 10/05/22 12:09 25 mg ONCE ONE Administration Sodium Chloride 1,000 mls @ 999 mls/hr 10/05/22 09:45 10/05/22 11:01 Ns IVCONT 10/05/22 10:45 Infused .Q1H1M JEFF Infusion Sodium Chloride 500 mls @ 999 mls/hr 10/05/22 11:30 11/09/22 12:10 Ns IV 10/05/22 12:00 Infused .Q31M JEFF Infusion Lorazepam 1 mg 10/05/22 12:08 10/05/22 12:15 Lorazepam 1 Mg Tablet PO 10/05/22 12:09 1 mg ONCE ONE Administration Ondansetron HCl 4 mg 10/05/22 09:34 10/05/22 10:06 Ondansetron Hcl 4 Mg/2 Ml Vial IVPUSH 10/05/22 09:35 4 mg ONCE ONE Administration Medical Decision Making Lab Data Lab results reviewed: Yes I reviewed the patient's lab results. Result diagrams: 10/05/22 09:57 10/05/22 09:57 Labs: Lab Results 10/05/22 10/05/22 10/05/22 Range/Units 07:13 09:53 09:57 WBC 10.9 H (4.8-10.8) X10*3/uL RBC 6.29 H D (4.60-5.80) X10*6/uL Hgb 17.2 D (14.0-18.0) g/dl Hct 50.5 D (42.0-52.0) % MCV 80.3 (80.0-98.0) fL MCH 27.3 (27.0-33.0) pg MCHC 34.1 (31.0-36.0) g/dl RDW 13.2 (11.0-16.0) % Plt Count 368 (160-400) X10*3/uL MPV 8.9 L (9.4-12.4) fL Immature Gran % (Auto) 0.2 (0.0-0.4) % Neut % (Auto) 68.1 (45-73) % Lymph % (Auto) 23.6 (20-40) % [place] % (Auto) 7.5 (2-11) % Eos % (Auto) 0.2 (0-4) % Baso % (Auto) 0.4 (0-2) % Lymph # (Auto) 2.6 (1.2-4.9) X10*3/uL [place] # (Auto) 0.8 (0.1-1.2) X10*3/uL Eos # (Auto) 0.0 (0.0-0.4) X10*3/uL Baso # (Auto) 0.0 (0.0-0.2) X10*3/uL Abs Immat Gran (auto) 0.02 (0.00-0.03) X10*3/uL Absolute Neuts (auto) 7.4 (2.0-8.3) x10*3/uL Absolute Nucleated RBC 0.000 (0.0-0.012) X10*3/uL Nucleated RBC % (auto) 0.0 (0.0-0.2) /100WBC Sodium (135-145) mmol/L Potassium (3.3-5.1) mmol/L Chloride (96-108) mmol/L Carbon Dioxide (22-29) mmol/L Anion Gap (12-20) BUN (9-16) mg/dL Creatinine (0.5-1.4) mg/dL Estim Creat Clear Calc Estimated GFR Random Glucose (60-115) mg/dL Calcium (8.4-10.2) mg/dL Total Bilirubin (0.0-1.0) mg/dL Direct Bilirubin (0.0-0.5) mg/dL AST (5-37) U/L ALT (0-40) U/L Alkaline Phosphatase (39-117) U/L Total Protein (6.5-8.0) g/dL Albumin (3.5-5.0) g/dL Lipase (8-78) U/L Urine Color Yellow Urine Appearance Clear Urine pH 6.0 (5.0-9.0) Ur Specific [place] <= 1.005 (1.005-1.025) Urine Protein Negative (Neg-Trace) mg/dL Urine Glucose (UA) Negative (Negative) mg/dL Urine Ketones 15 (Negative) mg/dL Urine Blood Negative (Negative) Urine Nitrite Negative (Negative) Ur Leukocyte Esterase Negative (Negative) Influenza Type A (PCR) NEGATIVE (Negative) Influenza Type B (PCR) NEGATIVE (Negative) RSV RNA Qual (PCR) NEGATIVE (Negative) SARS-CoV-2 RNA (RT-PCR) NEGATIVE (Negative) 10/05/22 Range/Units 09:57 WBC (4.8-10.8) X10*3/uL RBC (4.60-5.80) X10*6/uL Hgb (14.0-18.0) g/dl Hct (42.0-52.0) % MCV (80.0-98.0) fL MCH (27.0-33.0) pg MCHC (31.0-36.0) g/dl RDW (11.0-16.0) % Plt Count (160-400) X10*3/uL MPV (9.4-12.4) fL Immature Gran % (Auto) (0.0-0.4) % Neut % (Auto) (45-73) % Lymph % (Auto) (20-40) % [place] % (Auto) (2-11) % Eos % (Auto) (0-4) % Baso % (Auto) (0-2) % Lymph # (Auto) (1.2-4.9) X10*3/uL [place] # (Auto) (0.1-1.2) X10*3/uL Eos # (Auto) (0.0-0.4) X10*3/uL Baso # (Auto) (0.0-0.2) X10*3/uL Abs Immat Gran (auto) (0.00-0.03) X10*3/uL Absolute Neuts (auto) (2.0-8.3) x10*3/uL Absolute Nucleated RBC (0.0-0.012) X10*3/uL Nucleated RBC % (auto) (0.0-0.2) /100WBC Sodium 141 (135-145) mmol/L Potassium 4.5 (3.3-5.1) mmol/L Chloride 99 (96-108) mmol/L Carbon Dioxide 26 (22-29) mmol/L Anion Gap 21 H (12-20) BUN 6 L (9-16) mg/dL Creatinine 0.82 (0.5-1.4) mg/dL Estim Creat Clear Calc 107.5 Estimated GFR > 60 Random Glucose 97 (60-115) mg/dL Calcium 10.3 H D (8.4-10.2) mg/dL Total Bilirubin 1.2 H (0.0-1.0) mg/dL Direct Bilirubin 0.4 (0.0-0.5) mg/dL AST 13 D (5-37) U/L ALT 8 (0-40) U/L Alkaline Phosphatase 68 D (39-117) U/L Total Protein 7.8 (6.5-8.0) g/dL Albumin 5.1 H D (3.5-5.0) g/dL Lipase 41 (8-78) U/L Urine Color Urine Appearance Urine pH (5.0-9.0) Ur Specific [place] (1.005-1.025) Urine Protein (Neg-Trace) mg/dL Urine Glucose (UA) (Negative) mg/dL Urine Ketones (Negative) mg/dL Urine Blood (Negative) Urine Nitrite (Negative) Ur Leukocyte Esterase (Negative) Influenza Type A (PCR) (Negative) Influenza Type B (PCR) (Negative) RSV RNA Qual (PCR) (Negative) SARS-CoV-2 RNA (RT-PCR) (Negative) Discharge Plan Discharge Clinical Impression: Vomiting, Dyspepsia Patient Disposition: Home, Self-Care Additional Instructions: CT scan and labs did not reveal any significant or dangerous abnormality You improved with hydration so hopefully drink plenty of fluids Return to the ER any time for dehydration, worsening abdominal pain, fever, any worse condition or any concerns Prescriptions: No Action famotidine [Pepcid AC] 20 mg tablet 20 mg PO TID 90 Days Qty: 270 1RF ketoprofen 25 mg capsule See Rx Instructions PO .twice a day PRN (Reason: pain) 30 Days Qty: 60 11RF Rx Instructions: 1 mg PO .twice a day PRN; naloxone [Narcan] 4 mg/actuation spray,non-aerosol 4 mg intranasal Q2M PRN (Reason: opioid overdose) Qty: 2 2RF Rx Instructions: spray 1 dose into ONE nostril; alternate nostrils w each dose until help arrives ubrogepant 100 mg tablet 100 mg PO DAILY PRN (Reason: migraine headache) Qty: 16 5RF Rx Instructions: If patient is able to get more tablets per month please send the amount allowed for one month please and if needed resend request for medication hydroxyzine HCl 10 mg tablet 20 mg PO Q6-8H Qty: 180 5RF Rx Instructions: TEVA brand only PT TAKES 4-8/DAY fentanyl 50 mcg/hr patch 72 hour 1 patch transdermal Q48H Qty: 14 0RF Rx Instructions: Partial Fill upon patient request. lorazepam 1 mg tablet 1 mg PO TID-QID 28 Days Qty: 112 0RF Hold Instructions: rotating med cromolyn [Gastrocrom] 100 mg/5 mL concentrate 300 mg PO QID sucralfate [Carafate] 1 gram tablet 1 g PO BID PRN (Reason: Acid Reflux) meclizine 12.5 mg tablet 25 mg PO Q8H PRN (Reason: Dizziness) albuterol sulfate 90 mcg/actuation HFA aerosol inhaler 2 puff inhalation QID PRN (Reason: shortness of breath or wheezing) 30 Days Qty: 6.7 4RF ondansetron 8 mg tablet,disintegrating 8 mg PO Q8H PRN (Reason: nausea and vomiting) 30 Days Qty: 60 1RF Interventions: ED Discharge Assessment Last Done: 10/05/22 12:52 Discharge Date/Time: 10/05/22 12:56
--- OUTSIDE RECORDS SUMMARY | 2022-10-05 09:26 | XMS_ITS ---
:[address] [facility] Address [address] [place] [id number] Support Name Relationship Address Phone JON PANTOJA Unavailable [address] [facility] [facility] [place] [address] ALLYN PANTOJA Unavailable [address] [facility] [place] [address] Insurance Providers: All historical and current Section Date Range: From patient's date of to the date document was created.This section includes the names of all active insurance providers for the patient. Insurance Type of Plan Start of End of Group Member Insurance Policy P atient's Provider Coverage Name Policy Policy Number ID Provider's Johnson's Relationship Coverage Coverage Telephone Name to Policy Number Johnson MEDICARE MEDICARE PART Nov 27, PART B [id number] LARS ALFARO PATIENT (WNR) (M) B [id number] 97 JOSSIE Baires MEDICARE MEDICARE PART Apr 27, PART A [id number] LARS ALFARO PATIENT (WNR) (M) A 2004 [id number] ,JOSSIE Selected Encounter This section includes the information on record at [facility] for the Encounter. Date/Time Encounter Type Encounter Description Reason Provider Source Aug 02, 2022 09:25 Outpatient Encounter TELEPHONE CASE AM MANAGEMENT IHE Encounter Template Text not used by [facility] Social History: Smoking Status (Most current) and Tobacco Use (All prior to encounter date) This section includes the most current, and the historical, smoking and tobacco-related health factors from the [facility] facility where the Encounter took place.Current Smoking Status This section includes the most current smoking, or tobacco-related health factor, from the [facility] facility where the Encounter took place. Date/Time Current Smoking Status Comment Facility Jun 18, 2020 01:22 PM VA-TOBACCO QUIT 5 TO < 15 [facility] Tobacco Use History This section includes a history of the smoking, or tobacco- related health factors, that were collected on or before the date of the Encounter. The data comes from the [facility] facility where the Encounter took place. Date/Time Smoking Status/Tobacco Use Comment Quita scott Jun 18, 2020 01:22 PM [facility]-TOBACCO QUIT 5 TO < 15 [facility] Encounter Notes: All associated encounter notes This section contains the clinical notes associated to the Encounter. Date/Time Encounter Note(s) Provider Source Aug 02, 2022 09:25 AM TRANSFER SUMMARIZATION NOTE: DAMASO RODRIGUEZ [facility] LOCAL TITLE: HAND SIGN WRITER/OCC/HOSPITAL NOTIFICATION NOTE [facility] STANDARD TITLE: TRANSFER SUMMARIZATION NOTE DATE OF NOTE: AUG 02, 2022@09:25 ENTRY DATE: AUG 02, 2022@09:25:48 AUTHOR: PERRY RODRIGUEZ EXP COSIGNER: URGENCY: STATUS: COMPLETED HAND SIGN WRITER/OCC/HOSPITAL NOTIFICAT ION NOTE Has ADDENDA TC aware that patient was admitted to [facility] for NVD and dehydration on 07/30/22. Will follow unitl dischar . /taya/ PERRY RODRIGUEZ MSN,RN,CNL Quality Spray Maker Signed: 08/02/2022 09:26 Receipt Acknowledged By: 08/02/2022 15:49 /taya/ CLEMENTINE RAMÍREZ [facility] 08/04/2022 ADDENDUM STATUS: COMPLETED per [facility], the discharged on . /taya/ Edelmira Hampton RN-BS Dinkey Mechanic Signed: 08/04/2022 10:59 08/10/2022 ADDENDUM STATUS: COMPLETED Patient dc to home on 07/31. /cedric RODRIGUEZ MSN,RN,CNL Quality Spray Maker Signed: 08/10/2022 10:44
--- OUTSIDE RECORDS SUMMARY | 2022-10-05 09:26 | XMS_ITS | Continuity of Care Document ---
:1980 Author Organization [facility] Address [address] [place] [id number]- Care Team Providers Name Role Phone Cheli RASMUSSEN, Mary Olivas Primary Care Physician Encounter [facility] Date(s): 10/27/20 - 11/26/20 [facility] [address] [place] [id number] Allergies, Adverse Reactions, Alerts Substance Reaction Severity Status ibuprofen vomiting, diarrhea Active azithromycin Active aspirin vomitinng, diiarrhea Active Atarax vomitinng, diarrhea Active Ultram Active Topamax Active Tylenol Active meloxicam Active Lactose nausea Active Cymbalta Active Antihistamine-Decongestant Activ e Immunizations Given and Recorded Vaccine Date Status Refusal Reason influenza virus vaccine, inactivated1 08/29/17 Given influenza virus vaccine, inactivated 10/31/16 Given influenza virus vaccine, inactivated 09/23/15 Given influenza virus vaccine, inactivated 09/18/14 Given tetanus/diphtheria/pertussis, acel(Tdap) 09/23/15 Given 1Result Comment: [08/29/2017] [facility] [id number] Medications Atarax Tablet By Mouth, 4 times a day, 0 Refills, Maintenance, 09/12/19 14:03:37 EDT Start Date: 09/12/19 Status: OrderedCannabis (Schedule I Substance) card expires 11/22/2020, 0 Refills, Maintenance, 05/09/18 9:43:09 EDT Start Date: 05/09/18 Status: OrderedclonazePAM 0.5 mg oral tablet See Instructions, 0.5 to 2 tabs tid prn muscle spasms and anxiety. Max 4/day. Approved thru 02/01/20.,# 112 tablet, 2 Refills, Maintenance, 01/28/20 10:19:00 EST, [facility], 180, cm, 12/10/19 13:23:00 EST, Height, 69.7, kg, 01/02/19 11:... Start Date: 01/28/20 Status: Orderedcromolyn 20 mg/mL oral solution TK 10 ML PO QID 30 MIN B MEALS AND HS Start Date: 07/08/19 Status: OrderedfentaNYL 100 mcg/hr transdermal film, extended release 1 Patch, Topically, Every 48 hours, Partial fill allowed on request, # 15 patch, 0 Refills, Maintenance, 01/09/20 12:25:00 EST, [facility], 180, cm, 12/10/19 13:23:00 EST, Height, 69.7, kg, 01/02/19 11:09:00 EST, Dry Weight Start Date: 01/09/20 Status: OrderedHome O2 Home O2, See Instructions, # 1 units, Refills 2, Tot. Refills 2, Maintenance, Home O2 100% via non rebreathing facial mask. Flow rate 12L/min x 15 min PRN cluster headache, 07/26/18 14:51:24 EDT, Compound Start Date: 07/26/18 Status: Orderednaloxone 4 mg/0.1 mL nasal spray = 4 mg, Naris, Left, Once, may repeat every 2 to 3 minutes until patient responds, # 2 each, 0 Refills, Soft Stop, 07/08/19 15:25:11 EDT Start Date: 07/08/19 Status: Orderednizatidine 300 mg oral capsule TK 1 C PO QD HS Start Date: 12/10/19 Status: Orderedondansetron 8 mg oral tablet See Instructions, 1 tab po BID to TID for nausea and vomiting, # 84 tablet, 3 Refills, Maintenance, 04/05/19 17:26:25 EDT Start Date: 04/05/19 Status: Orderedsucralfate 1 gm oral tablet TK 1 T PO QID PRF UPSET STOMACH Start Date: 07/08/19 Status: OrderedTums 500 = 500 mg, Daily, 0 Refills, Maintenance, 09/12/19 14:04:31 EDT Start Date: 09/12/19 Status: OrderedVITAMIN B-12 1000MCG TIME REL TABS TK 1 T PO QD Start Date: 8/12/19 Status: OrderedVitamin D3 1000 intl units oral capsule 1 capsule = 1,000 International_Units, By Mouth, Daily, # 75 capsule, 0 Refills, Maintenance, 04/21/18 20:42:39 EDT, Capsule Start Date: 04/21/18 Status: Ordered Problem List Condition Effective Dates Status Health Status Informant Leg length difference, Active acquired(Confirmed) Headache, daily(Confirmed) Active 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) Medical cannabis use(Confirmed) Active Limitation of activities due to Active disability(Confirmed)1, 2, 3, 4, 5 Status post fracture of 2003 Active femur(Confirmed)6 Anxiety, generalized(Confirmed) Active GERD - Gastro-esophageal reflux Active disease(Confirmed) Abdominal pain, left lower Active quadrant(Confirmed) Mast cell activation Active syndrome(Confirmed) Myofascial pain, regional(Confirmed) Active Nausea(Confirmed) Active Neck pain, mechanical(Confirmed) Active Pes planus(Confirmed) Active Risk assessment: Adverse Childhood Active Experience(Confirmed)7 Shoulder pain, left(Confirmed) Active Lack of adequate sleep(Confirmed) Active Superficial Active thrombophlebitis(Confirmed) Thigh pain, right(Confirmed) Active Vertigo(Confirmed) Active 1Updated Oswestry Disability Index: 54% ( severe disability ) on 12/10/19.2 Updated Oswestry Disability Index: 60% ( severe disability ) on Updated Oswestry Disability Index: 62% ( crippled ) on 10/10/17.4Updated Oswestry Disability Index: 64% ( crippled ) on 09/14/16.5Initial Oswestry Disability Index: 54% ( severe disability ) on 04/27/2011.6right with rodding and delayed union with subsequent removale of [id number] score: 0 on 10/10/17 Social History Social History Type Response Smoking Status Former smoker; Tobacco user in household: No; Other: Quit 2005; entered on: 03/16/15 Sex
--- OUTSIDE RECORDS SUMMARY | 2022-10-05 09:26 | XMS_ITS | Continuity of Care Document ---
:1980 Author Organization [facility] Address [address] [place] [address]- Care Team Providers Name Role Phone Cheli RASMUSSEN, Mary Olivas Primary Care Physician Unavailable [facility] Date[facility]): [facility] - 12/20/19 [facility] [address] [place] [address]- [facility] Attending Physician: Admtr, Mariana Admitting Physician: Admtr, Ar8 Referring Physician: Admtr, Ar8 Allergies, Adverse Reactions, Alerts Substance Reaction Severity [...] tetanus/diphtheria/pertussis, acel(Tdap) 09/23/15 Given 1Result Comment: [08/29/2017] [facility] [id number] Medications Atarax Tablet By Mouth, 4 times a day, 0 Refills, Maintenance, 09/12/19 14:03:37 EDT Start Date: 09/12/19 Status: OrderedCannabis (Schedule I Substance) card expires 11/22/2020, 0 Refills, Maintenance, 05/09/18 9:43:09 EDT Start Date: 05/09/18 Status: OrderedclonazePAM 0.5 mg oral tablet See Instructions, 0.5 to 2 tabs tid prn muscle spasms and anxiety. Max 4/day. Approved thru 02/01/20.,# 112 tablet, 2 Refills, Maintenance, 11/04/19 16:49:00 EST, 180, cm, 09/19/19 15:25:09 EDT, Height,69.7, kg, 01/02/19 11:09:43 EST, Dry Weight Start Date: 11/04/19 Status: Orderedcromolyn 20 mg/mL oral solution TK 10 ML PO QID 30 MIN B MEALS AND HS Start Date: 07/08/19 Status: OrderedfentaNYL 100 mcg/hr transdermal film, extended release 1 Patch, Topically, Every 48 hours, Partial fill allowed on request, # 15 patch, 0 Refills, Maintenance, 12/10/19 14:40:00 EST, [facility], 180, cm, 12/10/19 13:23:00 EST, Height, 69.7, kg, 01/02/19 11:09:00 EST, Dry Weight Start Date: 12/10/19 Status: OrderedfentaNYL 100 mcg/hr transdermal film, extended release 1 Patch, Topically, Every 48 hours, Partial fill allowed on request, # 15 patch, 0 Refills, Maintenance, 12/10/19 16:10:00 EST, Dry Weight Start Date: 12/10/19 Status: OrderedHome O2 Home O2, See Instructions, # 1 units, Refills 2, Tot. Refills 2, Maintenance, Home O2 100% via non rebreathing facial mask. Flow rate 12L/min x 15 min PRN cluster headache, 07/26/18 14:51:24 EDT, Compound Start Date: 07/26/18 Status: OrderedLidoderm 5% film See Instructions, Dx: right thigh post-herpetic neuralgia. 1 patch 12 hr on/12 hr off, # 30 patch, 6Refills, Maintenance, 09/12/19 14:24:02 EDT, Dx: right thigh post-herpetic neuralgia. ; 1 patch 12 hr on/12 hr off Start Date: 09/12/19 Status: Orderedmeclizine 12.5 mg oral tablet See Instructions, 1-2 tablet By Mouth 3 times a day for vertigo, # 168 tablet, 5 Refills, Maintenance, 05/17/19 22:04:49 EDT, Pt also requesting refill of ondansetron - should have 1 refill left on file. Start Date: 05/17/19 Status: Orderednaloxone 4 mg/0.1 mL nasal spray [...] TK 1 T PO QD Start Date: 07/08/19 Status: OrderedVitamin D3 1000 intl units oral [...] activities due to Active disability(Confirmed)1, 2, 3, 4 Anxiety, generalized(Confirmed) Active GERD - Gastro-esophageal reflux Active disease(Confirmed) Abdominal pain, left lower Active quadrant(Confirmed) Mast cell activation Active syndrome(Confirmed) Myofascial pain, regional(Confirmed) Active Nausea(Confirmed) Active Neck pain, mechanical(Confirmed) Active Pes planus(Confirmed) Active Post herpetic neuralgia(Confirmed) Active Risk assessment: Adverse Childhood Active Experience(Confirmed)5 Shoulder pain, left(Confirmed) Active Lack of adequate sleep(Confirmed) Active Superficial Active thrombophlebitis(Confirmed) Thigh pain, right(Confirmed) Active Vertigo(Confirmed) Active 1Updated Oswestry Disability Index: 60% ( severe disability ) on Updated Oswestry Disability Index: 62% ( crippled ) on 10/10/17.3Updated Oswestry Disability Index: 64% ( crippled ) on 09/14/16.4Initial Oswestry Disability Index: 54% ( severe disability ) on 04/27/2011.5ACE score: 0 on 10/10/17 Social History Social History Type Response Smoking Status Former smoker; Tobacco user in household: No; Other: Quit 2005; entered on: 03/16/15 Sex
--- OUTSIDE RECORDS SUMMARY | 2022-10-05 09:26 | XMS_ITS | Continuity of Care Document ---
:1980 Author Organization [facility] Care Team Providers Name Role Phone [facility] Unavailable Unavailable Problems Combined list of problems from Department of Defense and Veterans Affairs facilities. It does not include entries that were removed or entered in error. 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 Medications provided include 1) outpatient medications from the last 15 months, and 2) patient-reported medications. Medication Details Route Status Patient Prescription Prescription Last Ordering Order Source Instructions Expires Number Dispense Provider Date Date FENTANYL APPLY 1 TOPICA ACTIVE SHEYLA WELDON 100MCG/HR PATCH TO L MEGHAN D 2019 [facility] PATCH SKIN PATCH [place] NEEDED [place] [facility] LORAZEPAM TAKE TWO ORAL ACTIVE SHEYLA WELDON A 2MG TAB TABLETS MEGHAN D 2019 [facility] BY MOUTH [place]ED [place] [facility] Allergies, Adverse Reactions, Alerts Combined list of allergies from Department of Defense and Veterans Affairs facilities. It does not include entries that were removed or entered in error. Substance Category Reaction Severity Reaction Status Date Comments S ource type Reported No Known Drug Drug active [facility] Allergies allergy allergy 8 [place] NONSTEROIDAL Propensity Weakness Propensity active [facility] ANTI-INFLAMM to adverse present to adverse 0 [facility] ATORY reactions reactions [place] to drug to drug [facility] (finding) (finding) TRICYCLIC Propensity Weakness Propensity active [facility] ANTIDEPRESSA to adverse present to adverse 0 [facility] NTS reactions reactions [place] to drug to drug [facility] (finding) (finding) Immunizations Combined list of available immunizations from the Department of Defense and Veterans Affairs facilities. Immunization Series Date Administered Site Reaction Lot CVX Drug St atus Comments Source Given By Number Code Public Health Training Assistant TDAP [facility] 2015 ed [facility] [place] [facility] Encounters Combined list of: 1) Encounters from Department of Veterans Affairs facilities going back up to the last 18 months. 2) Encounters from the Department of Defense facilities going back up to 280 months. Location Location Encounter Encounter Reason Attending ADM DC Stat us Disposition Source Details Type Number For Provider Date Date Visit HC PRO [id number] Diagnos SENIA GONZALEZ 04/19 V A PHONE CALL [id number] is: ENRIQUETA CNTR L 5-10 MIN ICD-10- [place] CM [place] Z71.89 [place] Other HCS specifi ed eap counselor ing<br/ >with Provide r Comment s: Other specifi ed eap counselor ing Outpatient [id number] 05/12 [id number] [place] [facility] [id number] 05/20 [facility] [id number] [facility] [place] [facility] [id number] 06/21 [facility] Encounter [id number] [facility] [place] [facility] [id number] 10/13 [facility] Encounter [id number] [facility] [place] [facility] [id number] 11/01 [facility] En[facility] [id number] [facility] [place] [facility] [id number] 11/01 [facility] En[facility] [id number] [facility] [place] [facility] [id number] 08/02 [id number] [place] [facility] [id number] 08/04 [id number] [place] [facility] Procedures Combined list of: 1) Procedures from Department of Veterans Affairs facilities going back up to the last 18 months, not all VA non-surgical procedures are included; 2) All procedures from the Department of Defense facilities. Procedure Procedure Type Code Date Perfomer Comments Sourc e RADIOLOGIC EXAMINATION; 10/05/2001 DoD NECK, SOFT TISSUE DISSECTION, DEEP 10/01/2001 Do D JUGULAR NODE(S) PHYS/OTH QUALIFIED 09/24/2001 DoD HEALTH MANAGER ELIGIBILITY QUALIFIED,EDUCATION,TRA IN,LICENSURE/REGULATION (WHEN APPLICABLE) EDUC SER RENDERED TO PATS IN A GRP SETTING (EG,,OBESITY,OR DIABETIC INSTRUCT) RADIOLOGIC EXAMINATION, 09/02/2001 DoD COMPLETE ACUTE ABDOMEN SERIES, INCLUDING 2 OR MORE VIEWS OF THE ABDOMEN (EG, SUPINE, ERECT, DECUBITUS), AND A SINGLE VIEW CHEST MUSCLE TESTING, MANUAL 08/16/2001 DoD (SEPARATE PROCEDURE) WITH REPORT; EXTREMITY (EXCLUDING HAND) OR TRUNK ORTHOTIC(S) FITTING AND 08/02/2001 DoD TRAINING, UPPER EXTREMITY(IES), LOWER EXTREMITY(IES), AND/OR TRUNK, EACH 15 MINUTES MUSCLE TESTING, MANUAL 08/01/2001 DoD (SEPARATE PROCEDURE) WITH REPORT; EXTREMITY (EXCLUDING HAND) OR TRUNK EDUCATIONAL SUPPLIES, 05/17/2002 DoD SUCH BOOKS, TAPES, AND PAMPHLETS, FOR THE PATIENT'S EDUCATION AT COST TO PHYSICIAN OR OTHER QUALIFIED HEALTH MANAGER ELIGIBILITY EDUCATIONAL SUPPLIES, 05/16/2002 DoD SUCH BOOKS, TAPES, AND PAMPHLETS, FOR THE PATIENT'S EDUCATION AT COST TO PHYSICIAN OR OTHER QUALIFIED HEALTH MANAGER ELIGIBILITY EDUCATIONAL SUPPLIES, 05/15/2002 DoD SUCH BOOKS, TAPES, AND PAMPHLETS, FOR THE PATIENT'S EDUCATION AT COST TO PHYSICIAN OR OTHER QUALIFIED HEALTH MANAGER ELIGIBILITY EDUCATIONAL SUPPLIES, 05/14/2002 DoD SUCH BOOKS, TAPES, AND PAMPHLETS, FOR THE PATIENT'S EDUCATION AT COST TO PHYSICIAN OR OTHER QUALIFIED HEALTH MANAGER ELIGIBILITY EDUCATIONAL SUPPLIES, 05/13/2002 DoD SUCH BOOKS, TAPES, AND PAMPHLETS, FOR THE PATIENT'S EDUCATION AT COST TO PHYSICIAN OR OTHER QUALIFIED HEALTH MANAGER ELIGIBILITY EDUCATIONAL SUPPLIES, 05/12/2002 DoD SUCH BOOKS, TAPES, AND PAMPHLETS, FOR THE PATIENT'S EDUCATION AT COST TO PHYSICIAN OR OTHER QUALIFIED HEALTH MANAGER ELIGIBILITY EDUCATIONAL SUPPLIES, 05/11/2002 DoD SUCH BOOKS, TAPES, AND PAMPHLETS, FOR THE PATIENT'S EDUCATION AT COST TO PHYSICIAN OR OTHER QUALIFIED HEALTH MANAGER ELIGIBILITY EDUCATIONAL SUPPLIES, 05/10/2002 DoD SUCH BOOKS, TAPES, AND PAMPHLETS, FOR THE PATIENT'S EDUCATION AT COST TO PHYSICIAN OR OTHER QUALIFIED HEALTH MANAGER ELIGIBILITY PHARMACOLOGIC 05/09/2002 DoD MANAGEMENT, INCLUDING PRESCRIPTION, USE, AND REVIEW OF MEDICATION WITH NO MORE THAN MINIMAL MEDICAL PSYCHOTHERAPY EDUCATIONAL SUPPLIES, 05/09/2002 DoD SUCH BOOKS, TAPES, AND PAMPHLETS, FOR THE PATIENT'S EDUCATION AT COST TO PHYSICIAN OR OTHER QUALIFIED HEALTH MANAGER ELIGIBILITY EDUCATIONAL SUPPLIES, 05/08/2002 DoD SUCH BOOKS, TAPES, AND PAMPHLETS, FOR THE PATIENT'S EDUCATION AT COST TO PHYSICIAN OR OTHER QUALIFIED HEALTH MANAGER ELIGIBILITY PHYS/OTH QUALIFIED 05/07/2002 DoD HEALTH MANAGER ELIGIBILITY QUALIFIED,EDUCATION,TRA IN,LICENSURE/REGULATION (WHEN APPLICABLE) EDUC SER RENDERED TO PATS IN A GRP SETTING (EG,,OBESITY,OR DIABETIC INSTRUCT) EDUCATIONAL SUPPLIES, 05/07/2002 DoD SUCH BOOKS, TAPES, AND PAMPHLETS, FOR THE PATIENT'S EDUCATION AT COST TO PHYSICIAN OR OTHER QUALIFIED HEALTH MANAGER ELIGIBILITY PHARMACOLOGIC 05/06/2002 DoD MANAGEMENT, INCLUDING PRESCRIPTION, USE, AND REVIEW OF MEDICATION WITH NO MORE THAN MINIMAL MEDICAL PSYCHOTHERAPY EDUCATIONAL SUPPLIES, 05/06/2002 DoD SUCH BOOKS, TAPES, AND PAMPHLETS, FOR THE PATIENT'S EDUCATION AT COST TO PHYSICIAN OR OTHER QUALIFIED HEALTH MANAGER ELIGIBILITY EDUCATIONAL SUPPLIES, 05/05/2002 DoD SUCH BOOKS, TAPES, AND PAMPHLETS, FOR THE PATIENT'S EDUCATION AT COST TO PHYSICIAN OR OTHER QUALIFIED HEALTH MANAGER ELIGIBILITY EDUCATIONAL SUPPLIES, 05/04/2002 DoD SUCH BOOKS, TAPES, AND PAMPHLETS, FOR THE PATIENT'S EDUCATION AT COST TO PHYSICIAN OR OTHER QUALIFIED HEALTH MANAGER ELIGIBILITY EDUCATIONAL SUPPLIES, 05/03/2002 DoD SUCH BOOKS, TAPES, AND PAMPHLETS, FOR THE PATIENT'S EDUCATION AT COST TO PHYSICIAN OR OTHER QUALIFIED HEALTH MANAGER ELIGIBILITY EDUCATIONAL SUPPLIES, 05/02/2002 DoD SUCH BOOKS, TAPES, AND PAMPHLETS, FOR THE PATIENT'S EDUCATION AT COST TO PHYSICIAN OR OTHER QUALIFIED HEALTH MANAGER ELIGIBILITY EDUCATIONAL SUPPLIES, 05/01/2002 DoD SUCH BOOKS, TAPES, AND PAMPHLETS, FOR THE PATIENT'S EDUCATION AT COST TO PHYSICIAN OR OTHER QUALIFIED HEALTH MANAGER ELIGIBILITY EDUCATIONAL SUPPLIES, 04/30/2002 DoD SUCH BOOKS, TAPES, AND PAMPHLETS, FOR THE PATIENT'S EDUCATION AT COST TO PHYSICIAN OR OTHER QUALIFIED HEALTH MANAGER ELIGIBILITY EDUCATIONAL SUPPLIES, 04/29/2002 DoD SUCH BOOKS, TAPES, AND PAMPHLETS, FOR THE PATIENT'S EDUCATION AT COST TO PHYSICIAN OR OTHER QUALIFIED HEALTH MANAGER ELIGIBILITY EDUCATIONAL SUPPLIES, 04/28/2002 DoD SUCH BOOKS, TAPES, AND PAMPHLETS, FOR THE PATIENT'S EDUCATION AT COST TO PHYSICIAN OR OTHER QUALIFIED HEALTH MANAGER ELIGIBILITY EDUCATIONAL SUPPLIES, 04/27/2002 DoD SUCH BOOKS, TAPES, AND PAMPHLETS, FOR THE PATIENT'S EDUCATION AT COST TO PHYSICIAN OR OTHER QUALIFIED HEALTH MANAGER ELIGIBILITY PREPARATION OF REPORT 04/26/2002 DoD OF PATIENT'S PSYCHIATRIC STATUS, HISTORY, TREATMENT, OR PROGRESS (OTHER THAN FOR LEGAL OR CONSULTATIVE PURPOSES) FOR OTHER INDIVIDUALS, AGENCIES, OR INSURANCE CARRIERS Social History Combined list of available smoking, tobacco, and other social history from Department of Defense andVeterans Affairs facilities. Social History Response Date Comment Source Type Tobacco smoking VA-TOBACCO QUIT 5 06/18/2020 [facility] status NHIS TO < 15 YRS [place] [facility] History of tobacco VA-TOBACCO FORMER 06/18/2020 ME C [facility] use [facility]ER [place] [facility] History of tobacco CURRENT SMOKER 05/16/2005 [facility] [place] use History of tobacco HISTORY OF SMOKING 02/10/2004 recently quit [place] use This section is an DoD empty social history section.
--- OUTSIDE RECORDS SUMMARY | 2022-10-05 09:26 | XMS_ITS | Continuity of Care Document ---
:1980 Author Organization [facility] Address [address] [place] [address]- Care Team Providers Name Role Phone Cheli RASMUSSEN, Mary Olivas Primary Care Physician Unavailable Encounter [facility] Date(s): 06/19/20 - 06/19/[address] [address]- [facility] Discharge Disposition: A-D/C Home Attending Physician: Padma Ivory MD Admitting Physician: Padma Ivory MD Referring Physician: Not on Staff, Referring MD Allergies, Adverse Reactions, Alerts Substance Reaction Severity [...] tetanus/diphtheria/pertussis, acel(Tdap) 09/23/15 Given 1Result Comment: [08/29/2017] [facility] [id number] Medications Atarax Tablet By Mouth, 4 times [...] tablet, 2 Refills, Maintenance, 01/28/20 10:19:00 EST, [facility], 180, cm, 12/10/19 13:23:00 [...] patch, 0 Refills, Maintenance, 01/09/20 12:25:00 EST, [facility], 180, cm, 12/10/19 13:23:00 [...] and delayed union with subsequent removale of [id number] score: 0 on 10/10/17 Vital Signs Most recent to oldest 1 2 3 [Reference Range]: Oxygen Saturation [94-100 %] 99 % 99 % 97 % (06/19/20 2:38 PM) (06/19/20 1:39 PM) (06/19/20 11: 32 AM) Pulse Rate [55-90 bpm] 80 bpm 75 bpm 81 bpm (06/19/20 2:38 PM) (06/19/20 1:39 PM) (06/19/20 11: 36 AM) Blood Pressure [90-138/55-84 121/83 mm Hg 119/79 mm Hg 147 /77 mm Hg mm Hg] (06/19/20 2:38 PM) (06/19/20 1:39 PM) *H* (06/19/20 11:32 A M) Respiratory Rate [16-30 16 br/min 20 br/min 14 br/mi n br/min] (06/19/20 2:38 PM) (06/19/20 1:39 PM) *L* (06/19/20 11:32 A M) Temperature [96.8-100.4 DegF] 98.4 DegF (06/19/20 11:34 AM) Mode of Delivery (Oxygen) Room air Room air Room a ir (06/19/20 2:38 PM) (06/19/20 1:39 PM) (06/19/20 11: 32 AM) Blood pressure sites Arm, right Arm, left Arm, left (06/19/20 2:38 PM) (06/19/20 1:39 PM) (06/19/20 11: 32 AM) Temperature Route Oral (06/19/20 11:34 AM) Social History Social History Type Response Smoking Status Former smoker; Tobacco user in household: No; Other: Quit 2005; entered on: 03/16/15 Sex
--- OUTSIDE RECORDS SUMMARY | 2022-10-05 09:26 | XMS_ITS | Continuity of Care Document ---
:1980 Author Organization [facility] Address [address] [place] [address]- Care Team Providers Name Role Phone Cheli RASMUSSEN, Mary Olivas Primary Care Physician Unavailable [facility]): [facility]20 - 02/16/20 [facility] [address] [place] [address]- [facility] Attending Physician: Admtr, Mariana Admitting Physician: Admtr, [...] tetanus/diphtheria/pertussis, acel(Tdap) 09/23/15 Given 1Result Comment: [08/29/2017] [facility] [id number] Medications Atarax Tablet By Mouth, 4 times [...] tablet, 2 Refills, Maintenance, 01/28/20 10:19:00 EST, [facility], 180, cm, 12/10/19 13:23:00 [...] patch, 0 Refills, Maintenance, 01/09/20 12:25:00 EST, [facility], 180, cm, 12/10/19 13:23:00 [...] and delayed union with subsequent removale of [id number] score: 0 on 10/10/17 Social History Social History Type Response Smoking Status Former smoker; Tobacco user in household: No; Other: Quit 2005; entered on: 03/16/15 Sex
--- OUTSIDE RECORDS SUMMARY | 2022-10-05 09:26 | XMS_ITS | Encounter Summary ---
:1980 Author Organization Department [facility] Address [address] [place] [address] Support Name Relationship Address Phone JON PANTOJA Unavailable [address] [facility] [place] [address] ALLYN PANTOJA Unavailable [address] [place] [address] Insurance Providers: All historical and current Section [...] MEDICARE MEDICARE PART Nov 27, PART B [id number] LARS ALFARO PATIENT (WNR) (M) B 2008 97 JOSSIE [employer]aires MEDICARE MEDICARE PART Apr 27, PART A [id number] LARS ALFARO PATIENT (WNR) (M) A 2004 [id number] ,JOSSIE Selected Encounter This section includes the information on record at [place] for the Encounter. Date/Time Encounter Type Encounter Description Reason Provider Source Nov 01, 2021 11:45 Outpatient Encounter [facility] AM CONSULT IHE Encounter Template Text not used by [place] Social History: Smoking Status (Most current) and [...] PM VA-TOBACCO QUIT 5 TO < 15 [facility] YRS [facility] Tobacco Use History This section includes a history of the smoking, or tobacco- related health factors, that were collected on or before the date of the Encounter. The data comes from the [place] facility where the Encounter took place. Date/Time Smoking Status/Tobacco Use Comment Quita ity Jun 18, 2020 01:22 PM CO-TOBACCO QUIT 5 TO < 15 YRS [facility]
--- OUTSIDE RECORDS SUMMARY | 2022-10-05 09:26 | XMS_ITS | Encounter Summary ---
:1980 Author Organization Department [facility] Address [address] [place] [address] Support Name Relationship Address Phone JON PANTOJA Unavailable [address] [facility] [place] [address] ALLYN PANTOJA Unavailable [address] [place] [address] Insurance Providers: All historical and current Section [...] MEDICARE MEDICARE PART Nov 27, PART B [id number] LARS ALFARO PATIENT (WNR) (M) B 2008 97 JOSSIE [employer]aires MEDICARE MEDICARE PART Apr 27, PART A [id number] LARS ALFARO PATIENT (WNR) (M) A 2004 [id number] ,JOSSIE Selected Encounter This section includes the information on record at [place] for the Encounter. Date/Time Encounter Type Encounter Description Reason Provider Source Aug 04, 2022 01:46 Outpatient Encounter COMMUNITY CARE PM CONSULT IHE Encounter Template Text not used by [facility] Social History: Smoking Status (Most current) and [...] PM VA-TOBACCO QUIT 5 TO < 15 OR [facility] [place] YRS [facility] Tobacco Use History This section includes a history of the smoking, or tobacco- related health factors, that were collected on or before the date of the Encounter. The data comes from the [place] facility where the Encounter took place. Date/Time Smoking Status/Tobacco Use Comment Qutia scott Jun 18, 2020 01:22 PM VA-TOBACCO QUIT 5 TO < 15 [facility] Encounter Notes: All associated encounter notes This section contains the clinical notes associated to the Encounter. Date/Time Encounter Note(s) Provider Source Aug 04, 2022 01:46 PM NONVA NOTE: CLEMENTINE RAMÍREZ [facility] TITLE: [facility] SELF PRESENTIN G CARE COORD PLAN STANDARD TITLE: NONVA NOTE DATE OF NOTE: AUG 04, 2022@13:46 ENTRY DATE: AUG 04, 2022@13:46:48 AUTHOR: CLEMENTINE RAMÍREZ EXP COSIGNER: URGENCY: STATUS: COMPLETED Emergency Notification Intake Date Presenting to the Facility: Jul Method of Contact: Notified from [facility] worklist Notification ID: [id number] [facility] Referral #: [facility] Name: Hospital: [facility] Address: City: [place] State: [place] Zip Code: Phone : Community Facility Point of Contact: Name: Cha Phone: Chief complaint: VOMITING Primary Diagnosis: Disposition Discharged Date of discharge: Jul Discharge to Comment: ER Only /taya/ CLEMENTINE ALTAMIRANO Signed: 08/04/2022 13:48 Receipt Acknowledged By: * AWAITING SIGNATURE * PERRY RODRIGUEZ * AWAITING SIGNATURE * KOJO MUÑIZ * AWAITING SIGNATURE * ARTHUR MENDEZ
--- OUTSIDE RECORDS SUMMARY | 2022-10-05 09:26 | XMS_ITS ---
:1980 Author Organization Department [facility] Address [address] [place] [address] Support Name Relationship Address Phone JON PANTOJA Unavailable [address] [facility] [place] [address] ALLYN PANTOJA Unavailable [address] [facility] [place] [address] Insurance Providers: All historical and current Section [...] MEDICARE MEDICARE PART Nov 27, PART B [id number] LARS ALFARO PATIENT (WNR) (M) B 2008 97 JOSSIE Baires MEDICARE MEDICARE PART Apr 27, PART A [id number] LARS ALFARO PATIENT (WNR) (M) A 2004 [id number] 4 ,JOSSIE Selected Encounter This section includes the information on record at [place] for the Encounter. Date/Time Encounter Type Encounter Description Reason Provider Source Oct 13, 2021 07:15 Outpatient Encounter COMMUNITY CARE AM CONSULT IHE Encounter Template Text not used by [facility] Plan of Treatment: Future Appointments (+ 6 months) and Future Tests (+/- 45 days) The Plan of Treatment section includes future care activities for the patient from all [facility] treatmentfacilities. This section includes future appointments and future orders which are active, pending orscheduled.Future Appointments This section includes appointments that were scheduled to occur 6 months from the date of the Encounter, up to a maximum of 20 appointments. The data comes from all [place] treatment facilities. Appointment Date/Time Appointment Type Appointment Facili ty Name Nov 01, 2021 11:45 AM AMBUL[facility] - [facility] Social History: Smoking Status (Most current) and Tobacco Use (All prior to encounter date) This section includes the most current, and the historical, smoking and tobacco-related health factors from the [place] facility where the Encounter took place.Current Smoking Status This section includes the most current smoking, or tobacco-related health factor, from the [place] facility where the Encounter took place. Date/Time Current Smoking Status Comment Facility Jun 18, 2020 01:22 PM [place]-TOBACCO QUIT 5 TO < 15 [facility] YRS [facility] Tobacco Use History This section includes a history of the smoking, or tobacco- related health factors, that were collected on or before the date of the Encounter. The data comes from the [place] facility where the Encounter took place. Date/Time Smoking Status/Tobacco Use Comment [facility] Jun 18, 2020 01:22 PM [place]-TOBACCO QUIT 5 TO < 15 YRS [facility] Encounter Notes: All associated encounter notes This section contains the clinical notes associated to the Encounter. Date/Time Encounter Note(s) Provider Source Oct 13, 2021 07:16 AM ADMINISTRATIVE NOTE: [facility] LOCAL TITLE: ADMINISTRATIVE NOTE [facility] STANDARD TITLE: ADMINISTRATIVE NOTE DATE OF NOTE: OCT 13, 2021@07:16 ENTRY DATE: OCT 13, 2021@07:16:07 AUTHOR: KENDRA DAVID EXP COSIGNER: URGENCY: STATUS: COMPLETED ADMINISTRATIVE NOTE Has ADDENDA Senior Data Developer received fax from [facility]; holly has upcoming appt 10/18/21; request new consult, current auth is . If approved, please submit a new Community Care- GI General consult for continuation of care for GERD with the below pre ferred provider. If not approved, please contact and community javid bains. [facility] [address] [place] [address], [address] Floor [place], [place] PH: [phone] FX: [phone] TAX ID [id number] appt 10/18/21 /taya/ KENDRA DAVID SUPERVISOR FLESHING Signed: 10/13/2021 07:19 Receipt Acknowledged By: * AWAITING SIGNATURE * CRISTINA YOUNG 10/13/2021 08:42 /taya/ Josh Feliciano MD Staff Physician 10/13/2021 ADDENDUM STATUS: COMPLETED Done. /taya/ Josh Feliciano MD Staff Physician Signed: 10/13/2021 08:42
--- OUTSIDE RECORDS SUMMARY | 2022-10-05 09:26 | XMS_ITS | Continuity of Care Document ---
:1980 Author Organization [facility] Address [address] [place] [id number]- Care Team Providers Name Role Phone Cheli RASMUSSEN, Mary Olivas Primary Care Physician Unavailable Encounter [facility] Date(s): 03/15/18 - 12/06/19 [facility] [address] [address] Discharge Disposition: A-D/C Home Attending Physician: Guille French MD Admitting Physician: Guille French MD Referring Physician: Rene Claros MD Allergies, Adverse Reactions, Alerts Substance Reaction [...] tetanus/diphtheria/pertussis, acel(Tdap) 09/23/15 Given 1Result Comment: [08/29/2017] [facility] [phone] Medications Atarax Tablet By Mouth, 4 times a day, 0 Refills, Maintenance, 09/12/19 14:03:37 EDT Start Date: 09/12/19 Status: OrderedCannabis (Schedule I Substance) 0 Refills, Maintenance, 05/09/18 9:43:09 EDT Start [...] request, # 15 patch, 0 Refills, Maintenance, 11/12/19 13:29:00 EST, [facility] 3, 180, cm, 09/19/19 15:25:09 EDT, Height, 69.7, kg, 01/02/19 11:09:43 EST, Dry Weight Start Date: 11/12/19 Status: OrderedHome O2 Home O2, See Instructions, [...] 07/08/19 15:25:11 EDT Start Date: 07/08/19 Status: Orderedondansetron 8 mg oral tablet See Instructions, 1 tab po BID to TID for nausea and vomiting, # 84 tablet, 3 Refills, Maintenance, 04/05/19 17:26:25 EDT Start Date: 04/05/19 Status: OrderedPepcid AC Maximum Strength = 20 mg, By Mouth, 2 times a day, 0 Refills, Maintenance, 07/08/19 11:24:33 EDT Start Date: 07/08/19 Status: Orderedsucralfate 1 gm oral tablet TK [...] 20:42:39 EDT, Capsule Start Date: 04/21/18 Status: OrderedZantac = 300 mg, Daily at bedtime, 0 Refills, Maintenance, 09/12/19 14:03:52 EDT Start Date: 09/12/19 Status: Ordered Problem List Condition Effective Dates [...] ) on 04/27/2011.5ACE score: 0 on 10/10/17 Vital Signs Most recent to oldest [Reference Range]: 1 Height 178 cm (04/09/18 1:10 PM) Weight 70.2 kg (04/09/18 1:10 PM) Oxygen Saturation [94-100 %] 100 % (04/09/18 1:10 PM) Pulse Rate [55-90 bpm] 97 bpm *H* (04/09/18 1:10 PM) Body Mass Index [18.5-24.99] 22.16 (04/09/18 1:10 PM) Blood Pressure [90-138/55-84 mm Hg] 146/95 mm Hg *H* (04/09/18 1:10 PM) Temperature [96.8-100.4 DegF] 97.9 DegF (04/09/18 1:10 PM) Blood pressure sites Arm, right (04/09/18 1:10 PM) Temperature Route Oral (04/09/18 1:10 PM) Dry Weight 70.2 kg (04/09/18 1:10 PM) Weight Obtained Via Standing scale (04/09/18 1:10 PM) Dry Weight Obtained Via Standing scale (04/09/18 1:10 PM) Social History Social History Type Response Smoking Status Former smoker; Tobacco user in household: No; Other: Quit 2005; entered on: 03/16/15 Sex
--- OUTSIDE RECORDS SUMMARY | 2022-10-05 09:26 | XMS_ITS | Encounter Summary ---
:[address] [facility] Address [address] [place] [address] Support Name Relationship Address Phone JON PANTOJA Unavailable [address] [facility] [address] ALLYN PANTOJA Unavailable [address] [place] [address] Insurance Providers: All historical and current Section [...] MEDICARE MEDICARE PART Nov 27, PART B [id number] LARS ALFARO PATIENT (WNR) (M) B 2008 97 JOSSIE Baires MEDICARE MEDICARE PART Apr 27, PART A [id number] LARS ALFARO PATIENT (WNR) (M) A 2004 [id number] ,JOSSIE Selected Encounter This section includes the information on record at [place] for the Encounter. Date/Time Encounter Type Encounter Description Reason Provider Source Nov 01, 2021 12:00 Outpatient Encounter COMMUNITY CARE AM CONSULT IHE [...] PM VA-TOBACCO QUIT 5 TO < 15 [facility] Tobacco Use History This section includes a history of the smoking, or tobacco- related health factors, that were collected on or before the date of the Encounter. The data comes from the [place] facility where the Encounter took place. Date/Time Smoking Status/Tobacco Use Comment Quita scott Jun 18, 2020 01:22 PM [place]-TOBACCO QUIT 5 TO < 15 YRS [facility] Encounter Notes: All associated encounter notes This section contains the clinical notes associated to the Encounter. Date/Time Encounter Note(s) Provider Source Nov 01, 2021 12:00 AM NONVA CONSULT: [facility] LOCAL TITLE: COMMUNITY CARE-CONSULT RESULT NOTE [facility] STANDARD TITLE: NONVA CONSULT DATE OF NOTE: NOV 01, 2021 ENTRY DATE: APRIL 21 022@13:39:12 AUTHOR: CARMEN COVARRUBIAS COSIGNER: URGENCY: STATUS: COMPLETED VistA Imaging - Scanned Document SCANNED DOCUMENT SIGNATURE NOT REQUIRED Electronically Filed: 04/21/2022 by: CALDERON COVARRUBIAS Animal Sticker
[2022-10-05 10:03] LABS: MANUAL DIFF FLAG NO
[2022-10-05 10:06] LABS: Appearance Urine Clear; Color Urine Yellow; Glucose Urine UA Negative (Negative); Leukocyte Esterase Urine Negative (Negative); Nitrite Urine Negative (Negative); Specific Gravity - Urine <= 1.005 (1.005-1.025); Urine Blood Negative (Negative); Urine Ketones 15 mg/dL (Negative); Urine Protein Negative (Neg-Trace)
[2022-10-05] MEDS: 0.9 % Sodium Chloride 1,000 ML 999 ML IVCONT (10:06)
[2022-10-05] MEDS: ondansetron HCL 4 MG/2 ML VIAL IVPUSH (10:06)
[2022-10-05] MEDS: Famotidine/PF 20 MG/2 ML VIAL IVPUSH (10:14)
[2022-10-05 10:18] LABS: Basophils Percent Auto 0.4 % (0-2); Eosinophils Percent Auto 0.2 % (0-4); Hematocrit 50.5 % (42.0-52.0); Hemoglobin 17.2 g/dl (14.0-18.0); Imm Gran Abs Auto 0.02 X10*3/uL (0.00-0.03); Imm Gran Pct Auto 0.2 % (0.0-0.4); Lymphocytes Absolute Auto 2.6 X10*3/uL (1.2-4.9); Lymphocytes Percent Auto 23.6 % (20-40); Mean Corpuscular HGB Conc 34.1 g/dl (31.0-36.0); Mean Corpuscular Hemoglobin 27.3 pg (27.0-33.0); Mean Corpuscular Volume 80.3 fL (80.0-98.0); Mean Platelet Volume 8.9 fL (9.4-12.4); Monocytes Absolute Auto 0.8 X10*3/uL (0.1-1.2); Monocytes Percent Auto 7.5 % (2-11); Neutrophils Absolute Auto 7.4 x10*3/uL (2.0-8.3); Neutrophils Percent Auto 68.1 % (45-73); Platelet Count 368 X10*3/uL (160-400); Red Blood Count 6.29 X10*6/uL (4.60-5.80); Red Cell Distribution Width 13.2 % (11.0-16.0)
[2022-10-05 10:22] LABS: White Blood Count 10.9 X10*3/uL (4.8-10.8)
[2022-10-05 10:29] LABS: Alanine Aminotransferase 8 U/L (0-40); Albumin Level 5.1 g/dL (3.5-5.0); Alkaline Phosphatase 68 U/L (39-117); Anion Gap 21 (12-20); Aspartate Amino Transferase 13 U/L (5-37); Bilirubin Direct 0.4 mg/dL (0.0-0.5); Bilirubin Total 1.2 mg/dL (0.0-1.0); Blood Urea Nitrogen 6 mg/dL (9-16); Calcium 10.3 mg/dL (8.4-10.2); Carbon Dioxide 26 mmol/L (22-29); Chloride 99 mmol/L (96-108); Creatinine Clr Calc Pharmacy 107.5; Estimated Glomerular Filt Rate > 60; Glucose Random 97 mg/dL (60-115); Lipase 41 U/L (8-78); Potassium 4.5 mmol/L (3.3-5.1); Sodium 141 mmol/L (135-145); Total Protein 7.8 g/dL (6.5-8.0)
[2022-10-05] MEDS: 0.9 % Sodium Chloride 500 ML 999 ML IV (11:21)
[2022-10-05] MEDS: LORazepam 1 MG TABLET PO (12:15)
[2022-10-05] MEDS: hydrOXYzine HCL 25 MG TABLET PO (12:15)
== END 2022-10-05 12:56 | disposition home or self-care (01) ==
PROVIDERS: Physician Assistant Medical; Emergency Provider Emergency Medicine; PCP Hospitalist
DX: R10.13 Epigastric pain (principal); R50.9 Fever, unspecified; R10.9 Unspecified abdominal pain; F17.210 Nicotine dependence, cigarettes, uncomplicated; Z71.6 Tobacco abuse counseling; Z20.822 Contact with and (suspected) exposure to COVID-19; Z79.899 Other long term (current) drug therapy
CPT/HCPCS: 0241U; 36415; 74176; 80048; 80076; 81003; 83690; 85025; 96361; 96374; 96375; 99284; J2405

== ENCOUNTER → 2022-11-04 11:33 | Outpatient (BNVA) | payer MEDICARE, SELFPAY | PROVIDERS: PCP Hospitalist; Referring Provider Hospitalist; Visit Provider Internal Medicine Gastroenterology | DX: D89.40 Mast cell activation, unspecified (principal) | CPT/HCPCS: 99212 ==

== ENCOUNTER 2023-11-09 09:45 | Outpatient (AMB) | payer MEDICARE, SELFPAY ==
[2023-11-09 09:50] VITALS: BP 130/70; PULSE 98; O2SAT 97; BMI 21.3
--- NOTE | 2023-11-09 09:50 | A.OFFPC_ITS ---
Vital Signs 11/09/23 09:50 Height 5 ft 10 in Weight 148 lb 2 oz BMI 21.3 BP 130/70 Blood Pressure Location Lt brachial Position Sitting Pulse 98 Pulse Source Pulse Oximeter Pulse Oximetry (%) 97 Oxygen Delivery Method Room Air Intake Visit Reasons: trans care from [facility] Intake Note: Patient is here for transfer of care from [facility]. Allergies nortriptyline [Pamelor] Allergy (Severe, Verified 11/09/23 09:55) Blurred vision Milk Containing Products (Dairy) [Milk Containing Products] Allergy (Intermediate, Verified 11/09/23 09:55) stomach upset azithromycin [AZITHROMYCIN] Adverse Reaction (Severe, Verified 11/09/23 09:55) DIARRHEA, stomach pain,vomiting clonidine Adverse Reaction (Severe, Verified 11/09/23 09:55) Opposite reaction high blood pressure. duloxetine [From CYMBALTA] Adverse Reaction (Severe, Verified 11/09/23 09:55) undesired effect ibuprofen [IBUPROFEN] Adverse Reaction (Severe, Verified 11/09/23 09:55) STOMACH UPSET, vomiting meloxicam Adverse Reaction (Severe, Verified 11/09/23 09:55) stomach upset acetaminophen [From TYLENOL] Adverse Reaction (Intermediate, Verified 11/09/23 09:55) STOMACH UPSET aspirin Adverse Reaction (Intermediate, Verified 11/09/23 09:55) vomiting bupropion [From Wellbutrin] Adverse Reaction (Intermediate, Verified 11/09/23 09:55) dizziness NSAIDS (Non-Steroidal Anti-Inflamma [NSAIDS (NON-STEROIDAL ANTI-INFLAMMA] Adverse Reaction (Intermediate, Verified 11/09/23 09:55) STOMACH UPSET topiramate [Topamax] Adverse Reaction (Intermediate, Verified 11/09/23 09:55) unable to tolerate tramadol [Ultram] Adverse Reaction (Intermediate, Verified 11/09/23 09:55) Unable to tolerate morphine Adverse Reaction (Uncoded 11/09/23 09:55) flushed Tobacco use date assessed: 11/09/23 Dental Screening Dental Screen Date: 11/09/23 Did you have a dental visit in the last 12 months?: Yes Did you have a dental problem in the last 6 months where you did not have access to dental care?: No Was dental information given to patient?: Patient has dentist HPI trans care from [facility] HPI Details Transfer of Care Prior PCP:?SV Last office visit/CPE: Acute issue(s): PMHx: Mast cell abnormalities and idiopathic eosinophilia. Cromolyn Numerous allergies includine NSAIDs Migraine - Urogepant Chronic pain - Fentanyl & Morphine Abdominal pain with nausea and vomiting Ondansetron, Sucralfate, Famotidine, Colestipol, Dicyclomine Chest pain Joint pain - Polyarthralgia, Ketoprofen (tolerates) Chronic gastritis Famotidine sucrafate Anxiety Lorazepam, Hydroxyzine h/o Shingles SurgHx: R Lymph node dissection. Adenoidectomy. R femur ORIF. Dental surgeries FHx: Mom: Anxiety, DM. Dad: HTN. Brother: Anxiety. Sister: Anxiety. Uncle: Glioblastoma SocHx: Smoked < 1 ppd x 1 yr. EtOH None. MJ No other drugs PFSH Medical History Anxiety Elevated plasma metanephrines History of femur fracture Mast cell activation syndrome Surgical History Deficient knowledge of leg surgery History of adenoidectomy Family History (Updated 11/09/23 @ 09:58 by Cat Soto CMA) Father Heart disease Mother No problems noted. Paternal Grandfather Heart disease Maternal Grandfather Lung cancer Paternal Uncle Neurofibroma Mother Diabetes Maternal Grandmother Diabetes Heart attack Brother Thyroid disease Hx of cholecystectomy Sister Thyroid disease Social History Household Members: Spouse and Children Housing: House Alcohol intake: never Patient Tobacco Use Status: Never used Tobacco Tobacco use type: Cigarette Years Smoked: 5 e-Cigarette/Vaping Use: Never Used Second Hand Smoke Exposure: No Substance Use Type: Marijuana Advance Directives Date on File: 08/02/22 service: Yes (Tagstr) Current occupational status: disabled Cognitive needs: No Hearing needs: No Vision needs: No Questionnaire PHQ-9 Over the last 2 weeks, how often have you been bothered by any of the following problems? 1. Little interest or pleasure in doing things: not at all 2. Feeling down, depressed, or hopeless: not at all 3. Trouble falling or staying asleep, or sleeping too much: not at all 4. Feeling tired or having little energy: several days 5. Poor appetite or overeating: not at all 6. Feeling bad about yourself - or that you are a failure or have let yourself or your family down: not at all 7. Trouble concentrating on things, such as reading the newspaper or watching television: not at all 8. Moving or speaking so slowly that other people could have noticed. Or the opposite - being so fidgety or restless that you have been moving around a lot more than usual: not at all 9. Thoughts that you would be better off or of hurting yourself in some way: not at all Total score: 1 Source: Developed by Drs. Nelson López, Mindi Jackson, Siva Carbajal and colleagues, with an educational debbie from [employer]. Thrive Questionnaire Date Thrive assessed: 11/09/23 I am a: Patient What is your living situation today?: I have a steady place to live Within the past 12 months, did the food you bought not last and you didn't have the money to get more?: Never true Within the past 12 months, did you worry whether your food would run out before you got money to buy more?: Never true Do you have trouble paying for medicines?: No Do you have trouble getting transportation to medical appointments?: Yes Do you have trouble paying your heating and electricity bill?: No Do you have trouble taking care of your child, family member or friend?: No Do you have trouble with day-to-day activities such as bathing, preparing meals, shopping, managing finances, etc.?: No Are you currently unemployed and looking for a job?: No Are you interested in more education?: No AUDIT C Alcohol Use Questionnaire (AUDIT-C) 1. How often do you have a drink containing alcohol?: Never 3. How often do you have six or more drinks on one occasion?: Never Total Score: 0 RICK-7 AMB Questionnaire RICK-7 Date RICK - 7 assessed: 11/09/23 Feeling nervous, anxious, or on edge: 1 = Several days Not being able to stop or control worryin = Not at all Worrying too much about different things: 1 = Several days Trouble relaxin = Several days Being so restless that it is hard to sit still: 0 = Not at all Becoming easily annoyed or irritable: 0 = Not at all Feeling afraid as if something awful might happen: 0 = Not at all Total RICK-7 score (0-4 normal; 5-9 mild; 10-14 moderate; 15-21 severe): 3 Source: Developed by Drs. Nelson López, Mindi Jackson, Siva Carbajal and colleagues, with an educational debbie from [employer]. Review of Systems Const Denies chills, Reports fatigue, Denies fever(s), Reports headache(s) and Denies weakness ENT Denies dizziness and Reports headache(s) Card Reports chest pain (Chronic,?intermittent, atypical), Denies lightheadedness, Denies dyspnea and Denies other (Palpitations) Resp Denies cough, Denies dyspnea, Denies wheezing and Denies other ( shortness of breath) Musc Details: Joint?pain Denies numbness and Denies tingling Neuro Denies dizziness, Reports headache(s), Denies numbness, Denies tingling, Denies paresthesias and Denies weakness Psych Reports anxiety and Denies depression Endo Reports fatigue Aller/Immun Denies wheezing Physical exam (Primary Care) Vital Signs: Last Vital Signs Pulse 98 11/09/23 09:50 BP 130/70 11/09/23 09:50 Pulse Ox 97 11/09/23 09:50 Oxygen Delivery Method Room Air 11/09/23 09:50 BMI result Body Mass Index 21.3 Tobacco/Smoking Status: Tobacco use Status Tobacco use date assessed 11/09/23 11/09/23 10:07 Patient Tobacco Use Status Never used Tobacco 11/09/23 10:07 Tobacco use type Cigarette 11/09/23 10:07 e-Cigarette/Vaping Use Never Used 11/09/23 10:07 PHQ-9: PHQ-9 Score PHQ-9: Total score 1 11/09/23 10:08 Thrive Assessment: Date of Thrive Assessment Date Thrive assessed 11/09/23 11/09/23 10:07 Const Other: Thin General: no acute distress Orientation/consciousness: patient oriented x3 HENMT Head: Yes normocephalic and Yes atraumatic Eyes General: appearance normal, both eyes and all related structures Pupils: Equal, round and reactive pupils present EOM: EOMs intact bilaterally Resp Effort & Inspection: normal respiratory effort Auscultation: clear to auscultation bilaterally Cardio Rate: regular rate Rhythm: regular rhythm Heart sounds: S1 normal heart sound present, S2 normal heart sound present, no gallops, no murmurs and no rubs Neuro General: patient oriented x3 and gait normal Cranial nerves: Yes Equal, round and reactive pupils present Psych Affect: Anxious affect present Assessment and Plan Assessment & Plan (1) Chronic pain: Code(s): G89.29 - Other chronic pain Plan: Patient?with?history?of?chronic?pain?in?multiple?joints?as?well?as?right?thigh?p ain?after?traumatic?fracture with?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 Stable?on?current?opioid?medications. Continue?current?regimen He?has?appointments?with?[place] (2) Polyarthralgia: Code(s): M25.50 - Pain in unspecified joint Plan: Bilateral?hand?pain?as?well?as?numerous?other ?joints?including?shoulders,?back,?hip?and?knees Referred?to?Rheumatology (3) Right thigh pain: Code(s): M79.651 - Pain in right thigh Plan: As?above,?significant?right?thigh?pain?since?traumatic?fracture?and Repair. 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 Continue?current?medication Follow-up?with?[place]?[facility]?s[facility]?as?well (4) Chronic, continuous use of opioids: Code(s): F11.90 - Opioid use, unspecified, uncomplicated Plan: Stable?on?current?regimen Continue?medications. Checking?H&H?and?testosterone?levels. (5) Mast cell activation syndrome: Code(s): D89.40 - Mast cell activation, unspecified Plan: Follow-up?with?immunology?as?recommended (6) Abdominal pain: Code(s): R10.9 - Unspecified abdominal pain Plan: Follow-up?with?Gastroenterology?as?recommended (7) Anxiety: Code(s): F41.9 - Anxiety disorder, unspecified Plan: Stable?on?lorazepam?and?hydroxyzine He?has?tried?SSRIs,?SNRIs,?tricyclic?antidepressants?and?other?medications.??Matos s?not?seem?to?have?tried?any?second-generation?antipsychotics?such?as?Abilify. Stable?on?current?medications?so?will?continue?this.??We?discussed?that?if?he?ne eds?additional?control,?we?could?try?Abilify. (8) Osteoporosis: Code(s): M81.0 - Age-related osteoporosis without current pathological fracture Plan: Long-term?use?of?opioids ?and?patient?notes?history?of?osteoporosis?with?bone?density?testing?more?than?2 ?years?ago Check?bone?density?test Orders: Orders Comprehensive [place]. Panel Fast Today Z00.00 - Encounter for general adult medical examination without abnormal findings Vitamin D 25-OH Total Today E55.9 - Vitamin D deficiency, unspecified Lipid Panel Today Z00.00 - Encounter for general adult medical examination without abnormal findings Free T4 (Free Thyroxine) Today E03.9 - Hypothyroidism, unspecified Triiodothyronine T3 Total Today E03.9 - Hypothyroidism, unspecified Thyroid Stimulating Hormone Today E03.9 - Hypothyroidism, unspecified Complete Blood Count Auto Diff Today Z00.00 - Encounter for general adult medical examination without abnormal findings Vitamin B12 and Folate Today E53.8 - Deficiency of other specified B group vitamins Prostate Specific Antigen Scr Today Z12.5 - Encounter for screening for malignant neoplasm of prostate Microalbumin, Random (w Creat) Today I10 - Essential (primary) hypertension Testosterone, Free/Total Today F11.90 - Opioid use, unspecified, uncomplicated XR DEXA axial skeleton Today M81.0 - Age-related osteoporosis without current pathological fracture Referrals Rheumatology Referral D89.40 - Mast cell activation, unspecified, M25.50 - Pain in unspecified joint Coding Level of Care Code Est Pt Level 4 (70432) Diagnoses Chronic pain G89.29 Polyarthralgia M25.50 Right thigh pain M79.651 Chronic, continuous use of opioids F11.90 Mast cell activation syndrome D89.40 Abdominal pain R10.9 Anxiety F41.9 Osteoporosis M81.0
== END 2023-11-09 11:15 | disposition home or self-care (01) ==
PROVIDERS: PCP Hospitalist; Visit Provider Family Medicine
DX: G89.29 Other chronic pain (principal); D89.40 Mast cell activation, unspecified; M25.50 Pain in unspecified joint; M79.651 Pain in right thigh; F11.90 Opioid use, unspecified, uncomplicated; R10.9 Unspecified abdominal pain; F41.9 Anxiety disorder, unspecified; M81.0 Age-related osteoporosis without current pathological fracture
CPT/HCPCS: 99214

== ENCOUNTER 2023-12-28 14:54 | Outpatient (AMB) | payer MEDICARE, SELFPAY ==
--- NOTE | 2023-12-28 14:58 | A.OFFVIS_ITS ---
Intake Vital Signs 12/28/23 15:04 Height 5 ft 10 in Weight 144 lb 13.499 oz BMI 20.8 BP 100/70 Blood Pressure Location Lt brachial Position Sitting Pulse 105 H Pulse Source Pulse Oximeter Temp 97.2 F Temp Source Skin Pulse Oximetry (%) 96 Oxygen Delivery Method Room Air Intake Visit Reasons: Joint Pain Intake Note: New patient, internally referred, presents to office today for joint pain. 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 Photographic Specialist Required: No Accompanied by: Self / Same As Patient Allergies nortriptyline [Pamelor] Allergy (Severe, Verified 12/28/23 15:08) Blurred vision Milk Containing Products (Dairy) [Milk Containing Products] Allergy (Intermediate, Verified 12/28/23 15:08) stomach upset azithromycin [AZITHROMYCIN] Adverse Reaction (Severe, Verified 12/28/23 15:08) DIARRHEA, stomach pain,vomiting clonidine Adverse Reaction (Severe, Verified 12/28/23 15:08) Opposite reaction high blood pressure. duloxetine [From CYMBALTA] Adverse Reaction (Severe, Verified 12/28/23 15:08) undesired effect ibuprofen [IBUPROFEN] Adverse Reaction (Severe, Verified 12/28/23 15:08) STOMACH UPSET, vomiting meloxicam Adverse Reaction (Severe, Verified 12/28/23 15:08) stomach upset acetaminophen [From TYLENOL] Adverse Reaction (Intermediate, Verified 12/28/23 15:08) STOMACH UPSET aspirin Adverse Reaction (Intermediate, Verified 12/28/23 15:08) vomiting bupropion [From Wellbutrin] Adverse Reaction (Intermediate, Verified 12/28/23 15:08) dizziness NSAIDS (Non-Steroidal Anti-Inflamma [NSAIDS (NON-STEROIDAL ANTI-INFLAMMA] Adverse Reaction (Intermediate, Verified 12/28/23 15:08) STOMACH UPSET topiramate [Topamax] Adverse Reaction (Intermediate, Verified 12/28/23 15:08) unable to tolerate tramadol [Ultram] Adverse Reaction (Intermediate, Verified 12/28/23 15:08) Unable to tolerate morphine Adverse Reaction (Uncoded 12/28/23 15:08) flushed HPI HPI Comments History of Present Illness Details Eleuterio, Emanuel yoM presented to the office today on referral from PCP for evaluation of multiple joint pain. The patient has a history of Mast cell syndrome and is being evaluated by multiple specialty and states Rheumatology is on the list to see if there is anything to find . The patient states he has been suffering for over 10 years and it has been within the last 4 years he was told about Mast cell. He reports that he experiences many symptoms that relate to all body systems. He states that his joints sometimes hurt but they do not get swollen, warm or red. He states his joints are very flexible. He takes multiple medications for his symptoms - cromolyn, Ketoprofen, morphine, carafate, ubrogepant, colestipol, fentanyl, meclizine and hydroxyzine. The patient endorses some overlapping symptoms that are likely due to the Mast Cell Syndrome. Patient denies Raynaud's phenomenon, butterfly rash on face or other rashes; denies photosensitivity - getting sick or developing a rash from being out in the sun; denies blood or froth in urine or stool; patient denies hx of SOB not related to URI, unexplained chest pain. Patient denies hx of Carditis or Pleuritis. Patient denies any history of DVT/PE. Denies fevers, but has excessive fatigue because of the Mast Cell, he has weightloss due to him unable to keep food down due to bouts of nausea and vomiting. His hair is thinning hair which he says is likely due to age. Denies: dry, itchy eyes, red burning eyes needing steroids to treat; dry mouth, mouth sores or ulcers; nose bleed; ringing in the ear, GI - N/V Hematology - Anemia Endocrine Pain Mgt Cardiology Dermatology [facility] Medical History (Updated 11/09/23 @ 11:06 by Alex Heart MD) Elevated plasma metanephrines Anxiety Mast cell activation syndrome History of femur fracture Surgical History (Updated 12/28/23 @ 15:12 by BHAVANA Mcgarry) Deficient knowledge of leg surgery History of adenoidectomy Family History Father Heart disease Mother No problems noted. 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 External ear normal, canal clear and tympanic membrane normal. NOSE/SINUS:? Airflow through both nares, no nasal discharge, no bleeding THROAT:? Oral mucosa moist, no ulcerations NECK:? No thyromegaly or masses, no adenopathy, trachea midline. HEART:? Regular rhythm, S1-S2 heard, no murmurs, rubs or gallops. LUNG:? Clear to percussion and auscultation ABD:? Normal bowel sounds, no organomegaly, masses or tenderness. EXTREMITIES:? No edema, no calf tenderness, normal peripheral pulses. NEURO:? Oriented and alert x3.? No focal weakness.? Reflexes symmetric.? Gait normal. SKIN:? There are no skin lesions evident. No objective signs of Raynaud's phenomenon. JOINT EXAM: Cervical Spine:.? Full range of motion without pain; no tenderness. Thoracic Spine:.? No scoliosis.? No tenderness on palpation. Lumbar Spine:.? Alignment normal.? Full range of motion without pain, no tenderness. Chest Wall:.? No tenderness, swelling, increased warmth or erythema. Hands:.? Normal pain-free range of motion without tenderness, swelling, increased warmth or erythema. Able to make a full fist and has a good associate professor of radiology strength. Wrists:.? Normal pain-free range of motion without tenderness, swelling, increased warmth or erythema. Elbows:. Normal pain-free range of motion without tenderness, swelling, increased warmth or erythema. Shoulders:.?? Full range of motion without pain. No tenderness, weakness, swelling, increased warmth or erythema. Hips:.? Full range of motion without pain. Hip bursa:.? No tenderness. Knees:.?? Normal pain-free range of motion without tenderness, swelling, increased warmth or erythema.? There is no effusion or crepitation Ankles:.? Normal pain-free range of motion without tenderness, swelling, increased warmth or erythema. Feet:.? Normal pain-free range of motion without tenderness, swelling, increased warmth or erythema. Assessment & Plan Assessment & Plan (1) Polyarthralgia: Code(s): M25.50 - Pain in unspecified joint (2) Mast cell activation syndrome: Code(s): D89.40 - Mast cell activation, unspecified Plan Mr. Mcclellan 43 yoM present for evaluation of joint pain. After careful initial review of history, available diagnostics and Physical examination I do not think the joint pain is caused by an underlying CTD or inflammatory joint pain. So far, most of the relevant serology for CTD is negative and his ESR/CRP are within normal limits. He denies,and none seen on PE, red, warm swollen joints. He does have hypermobility with a Beighton score of 5. He reports that sometimes the right knee cap slips out of joint. Hypermobility can be contributory to the joint pain. Per patient, he has a history of Mast cell activating Syndrome that causes him multiple concerns and he is being seen by multiple specialties for diagnosis of exclusion and so Rheumatology is included. Again, I do not see a clinical presentation at this time that reflects CTD or inflammatory joint pain For further evaluation, I will obtain additional labs. At this time, there is no schedule follow-up. However, if patient experiences symptoms of red, warm swollen joints, mouth sores, rashes, eye pain he can call the office for evaluation. I spent 40 minutes reviewing history, evaluating patient and documenting Orders: Orders JASPAL Reflex Titer and Pattern 12/28/23 D89.40 - Mast cell activation, unspecified, M25.50 - Pain in unspecified joint Anti-Centromere B Antibodies 12/28/23 D89.40 - Mast cell activation, unspecified, M25.50 - Pain in unspecified joint Complement C3 12/28/23 D89.40 - Mast cell activation, unspecified, M25.50 - Pain in unspecified joint Comprehensive Met. Panel 12/28/23 D89.40 - Mast cell activation, unspecified, M25.50 - Pain in unspecified joint Creatine Kinase Total 12/28/23 D89.40 - Mast cell activation, unspecified, M25.50 - Pain in unspecified joint C Reactive Protein 12/28/23 D89.40 - Mast cell activation, unspecified, M25.50 - Pain in unspecified joint Aldolase 12/28/23 D89.40 - Mast cell activation, unspecified, M25.50 - Pain in unspecified joint Immunoglobulins,IgG IgA IgM 12/28/23 D89.40 - Mast cell activation, unspecified, M25.50 - Pain in unspecified joint Uric Acid 12/28/23 D89.40 - Mast cell activation, unspecified, M25.50 - Pain in unspecified joint UA w Microscopic 12/28/23 D89.40 - Mast cell activation, unspecified, M25.50 - Pain in unspecified joint Scleroderma 70 Antibody 12/28/23 D89.40 - Mast cell activation, unspecified, M25.50 - Pain in unspecified joint Thyroglobulin Antibodies 12/28/23 D89.40 - Mast cell activation, unspecified, M25.50 - Pain in unspecified joint HLA B27 12/28/23 M25.50 - Pain in unspecified joint ANCA Vasculitides 12/28/23 D89.40 - Mast cell activation, unspecified, M25.50 - Pain in unspecified joint Anti DNA DS Antibody 12/28/23 D89.40 - Mast cell activation, unspecified, M25.50 - Pain in unspecified joint Complement C4 12/28/23 D89.40 - Mast cell activation, unspecified, M25.50 - Pain in unspecified joint Complete Blood Count Auto Diff 12/28/23 D89.40 - Mast cell activation, unspecified, M25.50 - Pain in unspecified joint Cryoglobulin 12/28/23 D89.40 - Mast cell activation, unspecified, M25.50 - Pain in unspecified joint Anti Extractable Nuclear Ag 12/28/23 D89.40 - Mast cell activation, unspecified, M25.50 - Pain in unspecified joint Erythrocyte Sedimentation Rate 12/28/23 D8. - Mast cell activation, unspecified, M25.50 - Pain in unspecified joint Protein Electrophoresis, Serum 12/28/23 D8 - Mast cell activation, unspecified, M25.50 - Pain in unspecified joint Immunofixation Pnl, Serum 12/28/23 D8 - Mast cell activation, unspecified, M25.50 - Pain in unspecified joint Angiotensin Converting Enzyme 12/28/23 D8 - Mast cell activation, unspecified, M25.50 - Pain in unspecified joint Sjogren's Antibodies 12/28/23 D8 - Mast cell activation, unspecified, M25.50 - Pain in unspecified joint Thyroid Peroxidase Antibodies 12/28/23 D8 - Mast cell activation, unspecified, M25.50 - Pain in unspecified joint Coding Level of Care Code New Pt Level 4 (38806) Diagnoses Polyarthralgia M25.50 Mast cell activation syndrome D8
[2023-12-28 15:04] VITALS: BP 100/70; PULSE 105; TEMP 36.2; O2SAT 96; BMI 20.8
== END 2023-12-28 15:51 | disposition home or self-care (01) ==
PROVIDERS: PCP Family Medicine; Visit Provider Nurse Practitioner Family
DX: M25.50 Pain in unspecified joint (principal); D89.40 Mast cell activation, unspecified
CPT/HCPCS: 99204

== ENCOUNTER 2023-12-28 14:54 | Outpatient (REF) | payer OTHER, SELFPAY ==
[2023-12-28 16:24] LABS: MANUAL DIFF FLAG NO
[2023-12-28 16:36] LABS: Basophils Absolute Auto 0.1 X10*3/uL (0.0-0.2); Basophils Percent Auto 0.6 % (0-2); Eosinophils Absolute Auto 0.6 X10*3/uL (0.0-0.4); Eosinophils Percent Auto 5.2 % (0-4); Hematocrit 46.7 % (42.0-52.0); Hemoglobin 16.2 g/dl (14.0-18.0); Imm Gran Abs Auto 0.04 X10*3/uL (0.00-0.03); Imm Gran Pct Auto 0.4 % (0.0-0.4); Lymphocytes Absolute Auto 3.7 X10*3/uL (1.2-4.9); Lymphocytes Percent Auto 32.5 % (20-40); Mean Corpuscular HGB Conc 34.7 g/dl (31.0-36.0); Mean Corpuscular Hemoglobin 27.7 pg (27.0-33.0); Mean Platelet Volume 8.6 fL (9.4-12.4); Monocytes Absolute Auto 0.9 X10*3/uL (0.1-1.2); Neutrophils Absolute Auto 6.1 x10*3/uL (2.0-8.3); Neutrophils Percent Auto 53.3 % (45-73); Platelet Count 403 X10*3/uL (160-400); Red Blood Count 5.84 X10*6/uL (4.60-5.80); Red Cell Distribution Width 13.1 % (11.0-16.0); White Blood Count 11.4 X10*3/uL (4.8-10.8)
[2023-12-28 16:59] LABS: Uric Acid 4.6 mg/dL (3.4-7.0)
[2023-12-28 17:03] LABS: Appearance Urine Clear; Color Urine Dark Yellow; Glucose Urine UA Negative (Negative); Leukocyte Esterase Urine Negative (Negative); Nitrite Urine Negative (Negative); PH 5.5 (5.0-9.0); Urine Blood Negative (Negative); Urine Ketones 15 mg/dL (Negative); Urine Protein Negative (Neg-Trace)
[2023-12-28 17:12] LABS: Alanine Aminotransferase 11 U/L (0-40); Albumin Level 4.8 g/dL (3.5-5.0); Alkaline Phosphatase 66 U/L (39-117); Anion Gap 14 (12-20); Aspartate Amino Transferase 17 U/L (5-37); Bilirubin Total 1.2 mg/dL (0.0-1.0); Blood Urea Nitrogen 9 mg/dL (9-16); C Reactive Protein < 0.10 mg/dL (< or = 0.50); Calcium 9.7 mg/dL (8.4-10.2); Carbon Dioxide 24 mmol/L (22-29); Chloride 102 mmol/L (96-108); Cholesterol 176 mg/dL (<200); Estimated Glomerular Filt Rate > 60; Glucose Fasting 104 mg/dL (60-99); Glucose Random 104 mg/dL (60-115); HDL Cholesterol 49 mg/dL (>40); LDL Cholesterol Calculated 113 mg/dL (<100); Potassium 3.2 mmol/L (3.3-5.1); Sodium 137 mmol/L (135-145); Total Protein 7.6 g/dL (6.5-8.0); Triglycerides 70 mg/dL (<150)
[2023-12-28 17:12] LABS: Bacteria Urine None Seen (None Seen); Hyaline Casts Urine 0-2 /LPF (0-2); RBC Urine 0-2 /HPF (0-2); Squamous Epithelial Cell Urine 0-2 /HPF (0-2); WBC Urine 0-5 /HPF (0-5)
[2023-12-28 17:13] LABS: Erythrocyte Sedimentation Rate 1 MM/HR (0-15)
[2023-12-28 17:20] LABS: Free T4 (Free Thyroxine) 1.19 ng/dL (0.71-1.85); Vitamin D 25-OH Total 10.8 ng/mL (>30)
[2023-12-28 17:28] LABS: Creatinine Urine 349.11 mg/dL; Microalbum/Creatinine Ratio Ur 5.1 ug/mg cr (<30)
[2023-12-28 17:34] LABS: Folate 2.3 ng/mL (> or = 4.0); Prostate Specific Antigen Scr 0.15 ng/mL (<0.05-4.0); Vitamin B12 391 pg/mL (200-900)
[2023-12-29 12:43] LABS: Complement C3 99 mg/dL (82-185)
[2023-12-29 17:54] LABS: Thyroglobulin Antibodies <1 IU/mL (< or = 1); Thyroid Peroxidase Antibodies <1 IU/mL (<9)
[2023-12-29 18:09] LABS: Triiodothyronine T3 Total 107 ng/dL (76-181)
[2023-12-29 19:39] LABS: Anti DNA DS Antibody <1 IU/mL; Anti-Centromere B Antibodies <1.0 NEG AI (<1.0 NEG); Antibody to SS-A Antigen <1.0 NEG AI (<1.0 NEG); Antibody to SS-B Antigen <1.0 NEG AI (<1.0 NEG); Myeloperoxidase Antibody <1.0 AI; Proteinase 3 PR3 Antibodies <1.0 AI; SM/Ribonucleoprotein Ab <1.0 NEG AI (<1.0 NEG); Scleroderma 70 Antibody <1.0 NEG AI (<1.0 NEG); Smith Protein <1.0 NEG AI (<1.0 NEG)
[2024-01-01 13:09] LABS: Prot Elec - Albumin 4.9 g/dL (3.8-4.8); Prot Elec - Alpha1 0.3 g/dL (0.2-0.3); Prot Elec - Alpha2 0.5 g/dL (0.5-0.9); Prot Elec - Beta 1 0.4 g/dL (0.4-0.6); Prot Elec - Beta 2 0.4 g/dL (0.2-0.5); Prot Elec - Gamma 0.9 g/dL (0.8-1.7); Prot Elec - Total Protein 7.5 g/dL (6.1-8.1)
[2024-01-02 13:13] LABS: Testosterone, Free 47.2 pg/mL (35.0-155.0); Testosterone, Total 549 ng/dL (250-1100)
[2024-01-02 14:48] LABS: IgA 310 mg/dL (47-310); IgG 970 mg/dL (600-1640); IgM 106 mg/dL (50-300)
[2024-01-03 22:13] LABS: HLA B27 Negative (Negative)
[2024-01-07 03:24] LABS: Angiotensin Converting Enzyme 25.1 U/L (9-67)
[2024-01-07 08:13] LABS: Anti Nuclear Antibody Screen NEGATIVE (NEGATIVE)
== END 2023-12-28 14:55 | disposition home or self-care (01) ==
LOC: HO.LAB 14:54
PROVIDERS: Absent Provider Family Medicine; PCP Family Medicine; Visit Provider Nurse Practitioner Family
DX: Z00.00 Encounter for general adult medical examination without abnormal findings (principal); M25.50 Pain in unspecified joint; D89.40 Mast cell activation, unspecified; E53.8 Deficiency of other specified B group vitamins; E03.9 Hypothyroidism, unspecified; I10 Essential (primary) hypertension; D72.829 Elevated white blood cell count, unspecified; F11.90 Opioid use, unspecified, uncomplicated; Z12.5 Encounter for screening for malignant neoplasm of prostate
CPT/HCPCS: 36415; 80053; 80061; 81001; 82043; 82085; 82164; 82306; 82550; 82570; 82595; 82607; 82746; 82784; 84153; 84165; 84402; 84403; 84439; 84443; 84480; 84550; 85025; 85652; 86021; 86038; 86140; 86160; 86225; 86235; 86334; 86376; 86800; 86812; 99202

== ENCOUNTER 2024-01-11 13:03 | Outpatient (AMB) | payer MEDICARE, SELFPAY ==
[2024-01-11 13:05] VITALS: BP 121/86; PULSE 84; O2SAT 98; BMI 20.4
--- NOTE | 2024-01-11 13:05 | MHC.PC.OV ---
Vital Signs 01/11/24 13:05 Height 5 ft 10 in Weight 142 lb 2 oz BMI 20.4 BP 121/86 Blood Pressure Location Lt brachial Position Sitting Pulse 84 Pulse Source Pulse Oximeter Pulse Oximetry (%) 98 Oxygen Delivery Method Room Air Intake Visit Reasons: Extended exam follow up labs Intake Note: Pt presents to the office today for an extended exam with follow up labs. Pt states he has been getting more headaches and states his body has been on edge lately and has been having more severe mass cell attacks within the past month. Allergies nortriptyline [Pamelor] Allergy (Severe, Verified 01/11/24 13:07) Blurred vision Milk Containing Products (Dairy) [Milk Containing Products] Allergy (Intermediate, Verified 01/11/24 13:07) stomach upset azithromycin [AZITHROMYCIN] Adverse Reaction (Severe, Verified 01/11/24 13:07) DIARRHEA, stomach pain,vomiting clonidine Adverse Reaction (Severe, Verified 01/11/24 13:07) Opposite reaction high blood pressure. duloxetine [From CYMBALTA] Adverse Reaction (Severe, Verified 01/11/24 13:07) undesired effect ibuprofen [IBUPROFEN] Adverse Reaction (Severe, Verified 01/11/24 13:07) STOMACH UPSET, vomiting meloxicam Adverse Reaction (Severe, Verified 01/11/24 13:07) stomach upset acetaminophen [From TYLENOL] Adverse Reaction (Intermediate, Verified 01/11/24 13:07) STOMACH UPSET aspirin Adverse Reaction (Intermediate, Verified 01/11/24 13:07) vomiting bupropion [From Wellbutrin] Adverse Reaction (Intermediate, Verified 01/11/24 13:07) dizziness NSAIDS (Non-Steroidal Anti-Inflamma [NSAIDS (NON-STEROIDAL ANTI-INFLAMMA] Adverse Reaction (Intermediate, Verified 01/11/24 13:07) STOMACH UPSET topiramate [Topamax] Adverse Reaction (Intermediate, Verified 01/11/24 13:07) unable to tolerate tramadol [Ultram] Adverse Reaction (Intermediate, Verified 01/11/24 13:07) Unable to tolerate morphine Adverse Reaction (Uncoded 01/11/24 13:07) flushed Tobacco use date assessed: 01/11/24 Dental Screening Dental Screen Date: 01/11/24 Did you have a dental visit in the last 12 months?: Yes Did you have a dental problem in the last 6 months where you did not have access to dental care?: No Was dental information given to patient?: Patient has dentist HPI Extended exam follow up labs HPI Details 43 y/o male presents for an extended exam with f/u labs and health maintenance. Labs were drawn 12/28/23. Reviewed labs with pt. Mildly elevated WBC at 11.4. Mildly elevated PLT at 403. Low folate at 2.3. Pt reports ongoing attacks of pain. He also reports back pain with chills. He notes he feels anxious today. [facility] Medical History Elevated plasma metanephrines Anxiety Mast cell activation syndrome History of femur fracture Surgical History Deficient knowledge of leg surgery History of adenoidectomy Family History Father Heart disease Mother No problems noted. 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 1. Little interest or pleasure in doing things: not at all 2. Feeling down, depressed, or hopeless: not at all 3. Trouble falling or staying asleep, or sleeping too much: not at all 4. Feeling tired or having little energy: several days 5. Poor appetite or overeating: not at all 6. Feeling bad about yourself - or that you are a failure or have let yourself or your family down: not at all 7. Trouble concentrating on things, such as reading the newspaper or watching television: not at all 8. Moving or speaking so slowly that other people could have noticed. Or the opposite - being so fidgety or restless that you have been moving around a lot more than usual: not at all 9. Thoughts that you would be better off or of hurting yourself in some way: not at all Total score: 1 Depression Screening Interpretation: Negative Depression Screening Done: Yes [id number] - PHQ-9 Billing: Yes Source: Developed by Drs. Nelson López, Mindi Jackson, Siva Carbajal and colleagues, with an educational debbie from [employer]. Thrive Questionnaire Date Thrive assessed: 11/09/23 I am a: Patient What is your living situation today?: I have a steady place to live Within the past 12 months, did the food you bought not last and you didn't have the money to get more?: Never true Within the past 12 months, did you worry whether your food would run out before you got money to buy more?: Never true Do you have trouble paying for medicines?: No Do you have trouble getting transportation to medical appointments?: Yes Do you have trouble paying your heating and electricity bill?: No Do you have trouble taking care of your child, family member or friend?: No Do you have trouble with day-to-day activities such as bathing, preparing meals, shopping, managing finances, etc.?: No Are you currently unemployed and looking for a job?: No Are you interested in more education?: No THRIVE Score: 1 AUDIT C Alcohol Use Questionnaire (AUDIT-C) 1. How often do you have a drink containing alcohol?: Never 3. How often do you have six or more drinks on one occasion?: Never Total Score: 0 RICK-7 AMB Questionnaire RICK-7 Date RICK - 7 assessed: 11/09/23 Feeling nervous, anxious, or on edge: 1 = Several days Not being able to stop or control worryin = Not at all Worrying too much about different things: 1 = Several days Trouble relaxin = Several days Being so restless that it is hard to sit still: 0 = Not at all Becoming easily annoyed or irritable: 0 = Not at all Feeling afraid as if something awful might happen: 0 = Not at all Total RICK-7 score (0-4 normal; 5-9 mild; 10-14 moderate; 15-21 severe): 3 Source: Developed by Drs. Nelson López, Mindi Jackson, Siva Carbajal and colleagues, with an educational debbie from [employer]. RICK-7 Assessment Billing RICK-7 Assessment Tool: RICK-7 Assessment 10236 Physical exam (Primary Care) Vital Signs: Last Vital Signs Pulse 84 01/11/24 13:05 BP 121/86 01/11/24 13:05 Pulse Ox 98 01/11/24 13:05 Oxygen Delivery Method Room Air 01/11/24 13:05 BMI result Body Mass Index 20.4 Tobacco/Smoking Status: Tobacco use Status Tobacco use date assessed 01/11/24 01/11/24 13:16 Patient Tobacco Use Status Never used Tobacco 01/11/24 13:16 Tobacco use type Cigarette 01/11/24 13:16 e-Cigarette/Vaping Use Never Used 01/11/24 13:16 PHQ-9: PHQ-9 Score PHQ-9: Total score 1 01/11/24 13:22 Depression Screening Interpretation: Negative Thrive Assessment: Date of Thrive Assessment Date Thrive assessed 11/09/23 01/11/24 13:16 Assessment and Plan Assessment & Plan (1) Chronic pain: Code(s): G89.29 - Other chronic pain Plan: Ongoing?chronic?pain?and?arthralgia Likely?multifactorial Rheumatology?notes?hypermobility?and?patient?has?history?of?mast?cell?activation?syndrome,?treated?by?immunology?and?gastroenterology. He?has?been?stable?on?opioid?pain?control (2) Polyarthralgia: Code(s): M25.50 - Pain in unspecified joint Plan: As?above (3) Hypermobility arthralgia: Code(s): M25.50 - Pain in unspecified joint Plan: Currently?has?some?flare?up?of?discomfort?and?I?will?send?script?for?prednisone.??He?also?notes?some?GI?issues He?will?check?with?GI?before?starting?prednisone. (4) Low vitamin D level: Code(s): R79.89 - Other specified abnormal findings of blood chemistry Plan: Had?sent?a?script?for?vitamin?D We?can?follow-up?on?this?at?a?subsequent?visit (5) Low folate: Code(s): E53.8 - Deficiency of other specified B group vitamins Plan: Sent?a?script?for?folic?acid. He?is?uncertain?he?is?able?to?tolerate?this.??He?will?discuss?with?specialist?such?as?GI?and?immunology (6) Anxiety: Code(s): F41.9 - Anxiety disorder, unspecified Plan: Patient?takes?hydroxyzine?for?his?allergic?symptoms. I?advised?that?he?can?also?try?hydroxyzine?for?anxiety?as?well?and?particularly?when?both?coincide. (7) Mast cell activation syndrome: Code(s): D89.40 - Mast cell activation, unspecified Plan: Follow-up?with?immunology?and?gastroenterology Advised?he?contact?his?automation controls expert?sooner?as?he?notes?increasing?frequency?of?flare-ups?lately. (8) Screening for colon cancer: Code(s): Z12.11 - Encounter for screening for malignant neoplasm of colon Plan: Patient?is?followed?by?GI?closely (9) Chronic, continuous use of opioids: Code(s): F11.90 - Opioid use, unspecified, uncomplicated Plan: Due?for?random?urine?drug?screen Ordered (10) Screening for prostate cancer: Code(s): Z12.5 - Encounter for screening for malignant neoplasm of prostate Plan: PSA?was?within?normal?limits Will?continue?screening?annual (11) Adult general medical exam: Code(s): Z00.00 - Encounter for general adult medical examination without abnormal findings Plan: 43-year-old?male?presents?for?an?extended?exam Stable (12) At high risk for osteoporosis: Code(s): Z91.89 - Other specified personal risk factors, not elsewhere classified Plan: Patient?with?chronic?opioid?use?and?frequent?steroid?use, at?high?risk?for?osteoporosis Check?bone?density?testing Orders: Orders Drug Screen Urine Today F11.90 - Opioid use, unspecified, uncomplicated Opiates [facility] Expanded, Ur Today F11.90 - Opioid use, unspecified, uncomplicated Coding Level of Care Code Est Pt Level 4 (63987) Diagnoses Chronic pain G89.29 Polyarthralgia M25.50 Hypermobility arthralgia M25.50 Low vitamin D level R79.89 Low folate E53.8 Anxiety F41.9 Mast cell activation syndrome D89.40 Screening for colon cancer Z12.11 Chronic, continuous use of opioids F11.90 Screening for prostate cancer Z12.5 Adult general medical exam Z00.00 At high risk for osteoporosis Z91.89 Additional Codes RICK-7 Assessment Billing - RICK-7 Assessment Tool: RICK-7 Assessment [id number] ([id number])
== END 2024-01-11 14:00 | disposition home or self-care (01) ==
PROVIDERS: PCP Family Medicine; Visit Provider Family Medicine
DX: G89.29 Other chronic pain (principal); D89.40 Mast cell activation, unspecified; M25.50 Pain in unspecified joint; R79.89 Other specified abnormal findings of blood chemistry; E53.8 Deficiency of other specified B group vitamins; F41.9 Anxiety disorder, unspecified; Z12.11 Encounter for screening for malignant neoplasm of colon; F11.90 Opioid use, unspecified, uncomplicated; Z12.5 Encounter for screening for malignant neoplasm of prostate; Z00.00 Encounter for general adult medical examination without abnormal findings; Z91.89 Other specified personal risk factors, not elsewhere classified
CPT/HCPCS: 99214

== ENCOUNTER 2024-01-11 14:04 | Outpatient (REF) | payer MEDICARE, SELFPAY ==
[2024-01-12 13:08] LABS: Amphetamine Screen Urine Not Detected (Not Detect); Barbiturates, Urine Not Detected (Not Detect); Benzodiazepines Screen Urine Not Detected (Not Detect); Cannabinoid Screen Urine POSITIVE (Not Detect); Cocaine Screen Urine Not Detected (Not Detect); Fentanyl, urine POSITIVE (Not Detect); Opiate Screen Urine POSITIVE (Not Detect); Phencyclidine Screen Urine Not Detected (Not Detect)
[2024-01-18 15:23] LABS: Hydromorphone, Ur 73 (H)
[2024-01-18 15:24] LABS: Morphine, Ur >10000 (H); Oxymorphone, Ur NEGATIVE
[2024-01-18 15:25] LABS: Codeine, Ur NEGATIVE; Hydrocodone, Ur NEGATIVE; Norhydrocodone, Ur NEGATIVE; Noroxycodone, Ur NEGATIVE; Oxycodone, Ur NEGATIVE
== END 2024-01-11 14:05 | disposition home or self-care (01) ==
LOC: HO.LAB 14:04
PROVIDERS: Visit Provider Family Medicine
DX: F11.20 Opioid dependence, uncomplicated (principal)
CPT/HCPCS: 80307; 80365; G0480

== ENCOUNTER 2024-03-18 09:45 | Outpatient (AMB) | payer MEDICARE, SELFPAY ==
--- NOTE | 2024-03-18 09:45 | MHC.OFFVIS ---
Intake Visit Reasons: pt req appointment Intake Note: Eleuterio presents as a telehealth today requested by patient. CC: stomach pains and he states that it seems to be in the biliary area. There is swelling and it seems to be getting worse. HE gets constipation for no reason and stools have been white. He has dark urine - today it was orange red. Sometimes it is for days in a row. He states that he drinksd a lot of water so he is unsure what to do next. States PCP does not know anything for MAST CELL disorder. Mast cell has been worse the past few months and he feels dizzy and weak constantly. He had no Folic or d3 - he has been supplementing but it just does not seem to be working. Client Support Coordinator Required: No Allergies nortriptyline [Pamelor] Allergy (Severe, Verified 03/18/24 09:46) Blurred vision Milk Containing Products (Dairy) [Milk Containing Products] Allergy (Intermediate, Verified 03/18/24 09:46) stomach upset azithromycin [AZITHROMYCIN] Adverse Reaction (Severe, Verified 03/18/24 09:46) DIARRHEA, stomach pain,vomiting clonidine Adverse Reaction (Severe, Verified 03/18/24 09:46) Opposite reaction high blood pressure. duloxetine [From CYMBALTA] Adverse Reaction (Severe, Verified 03/18/24 09:46) undesired effect ibuprofen [IBUPROFEN] Adverse Reaction (Severe, Verified 03/18/24 09:46) STOMACH UPSET, vomiting meloxicam Adverse Reaction (Severe, Verified 03/18/24 09:46) stomach upset acetaminophen [From TYLENOL] Adverse Reaction (Intermediate, Verified 03/18/24 09:46) STOMACH UPSET aspirin Adverse Reaction (Intermediate, Verified 03/18/24 09:46) vomiting bupropion [From Wellbutrin] Adverse Reaction (Intermediate, Verified 03/18/24 09:46) dizziness NSAIDS (Non-Steroidal Anti-Inflamma [NSAIDS (NON-STEROIDAL ANTI-INFLAMMA] Adverse Reaction (Intermediate, Verified 03/18/24 09:46) STOMACH UPSET topiramate [Topamax] Adverse Reaction (Intermediate, Verified 03/18/24 09:46) unable to tolerate tramadol [Ultram] Adverse Reaction (Intermediate, Verified 03/18/24 09:46) Unable to tolerate morphine Adverse Reaction (Uncoded 04/22/24 09:46) flushed HPI HPI pt req appointment: Details: 43 y/o m being called for f/u RECAP: Seen at [facility] for ongoing undifferentiated abdominal pain, with no obvious causes despite multiple tests when seen last he was feeling generally down for 1 month having pain LLQ can be burning , can feel hard in the skin also has right sided ear ache, feels ear is blocked had vertigo type sx, taking meclizine which has helped a little taking zofran which helps nausea on fentanyl 100 mcg patch every 2 days going to toilet 2-5 times/day no fever appetite is poor, weight is stable sputum production-white or yellow, sore wrist joints he had mental fogginess I suspected he had mast cell disorder, and he took cromolyn which he took for a 6 months-year and which he think helped he stopped it 8 months ago because he thought it was making him constipated and he was trying to eliminate meds could be causing it, also didn;t eant his pain meds reduced as he didn;t think those were responsible he stopped anti histamines as he thought htey might have been causing palpitations, but he never saw a online banking specialist, albeit he was admitted on one occasion on tele, never really found anything per him. I did capsule study, didn;t see all of small bowel, saw maybe 2/3rd and looked normal RAST basic panel--neg CBC, BMP, LFT< normal, low b1 (better on repeat), low vit c and vit d taking supplements Offered , trying to get PA running diagnosis: MARYCRUZ and autonomic dysfunction Follow up: 11/2019 current meds_ cromolyn, atarax, axid, zofran prn, stopped meclizine (felt it wasn;t needed) feels he has gained weight now pain is much less vomited 3 times last week, nausea is overall improved being referred to pain management, fentanyl 100 mcg overall he feels is going in a good direction and improved he has seen Dr Velasquez allergy medicine and commenced on ketotifen, also discussed dynamic neural retraining he was having good success with ketotifen, helping mast cell sx he was awaiting cardio w/u for abn ECG, mesenteric duplex was normal, liver normal on US He had an admission: 07/2022 with nausea and vomiting, treated conservatively with fluids labs with raised WCC Ct imaging with no acute abdominal or pelvic findings, CXR normal He was referred to hem due to high WCC and thought to be benign possibly due to THC use INTERIM: He has noted issues with dysphagia, even water going on for 2 months weight has been going down over several months there was a virus in the house no nausea or vomiting he is still taking cromolyn he is still on fentanyl patch 50 mcg he also takes morphine PO for back pain, been on for 1 year denies constipation but gets bloating EXAM: GENERAL: The patient is well developed and nontoxic, relaxed appearing Assessment & Plan (1) 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 Paternal Grandfather Heart disease Maternal Grandfather Lung cancer Paternal Uncle Neurofibroma Mother Diabetes Maternal Grandmother Diabetes Heart attack Brother Thyroid disease Hx of cholecystectomy Sister Thyroid disease Social History Household Members: Spouse and Children Housing: House Alcohol intake: never Patient Tobacco Use Status: Never used Tobacco Tobacco use type: Cigarette Years Smoked: 5 e-Cigarette/Vaping Use: Never Used Second Hand Smoke Exposure: No Substance Use Type: Marijuana Advance Directives Date on File: 08/02/22 service: Yes ([employer]) Current occupational status: disabled Cognitive needs: No Hearing needs: No Vision needs: No Telehealth Telehealth Telehealth Platform: [facility] Location of provider rendering services: practice address Location of patient: address on file Patient Identification confirmed using: Name, : Yes Telehealth method: video Patient verbally consented to treatment: Yes Patient verbally consented to billing insurance company: Yes Patient informed of any privacy concerns related to visit: Yes Minutes spent on Phone/Video with Pt.: 9 Assessment & Plan Assessment & Plan (1) Dysphagia: Code(s): R13.10 - Dysphagia, unspecified Category: Medical Plan: see above Medications: Discontinued lorazepam Discontinued Reason: Doctor's Order 1 mg PO TID PRN 8 tabs 0RF anxiety
== END 2024-03-18 11:18 | disposition home or self-care (01) ==
LOC: HO.HGI 09:45
PROVIDERS: PCP Family Medicine; Visit Provider Internal Medicine Gastroenterology
DX: R13.10 Dysphagia, unspecified (principal)
CPT/HCPCS: 99213

== ENCOUNTER → 2024-03-18 09:45 | Outpatient (BNVA) | payer MEDICARE, SELFPAY | PROVIDERS: PCP Family Medicine; Visit Provider Internal Medicine Gastroenterology ==

== ENCOUNTER 2024-03-27 11:38 | Day surgery (SDC) | payer MEDICARE, SELFPAY ==
--- NOTE | 2024-03-26 08:58 | P.CONAN_ITS ---
Documented by User: Carla Rivera NP 03/26/24 09:04 HPI - Anesthesia Eval Consult details Narrative: 43yo M for Upper Endoscopy with Balloon Dilitation Chronic opiates - fentanyl patch Mast cell activation syndrome - daily ketotifen and cromolyn. Unable to reach patient by phone to obtain further info. [facility] Active Problems Active Problems: All Active Problems Dysphagia (Acute) At high risk for osteoporosis (Acute) Adult general medical examination (Acute) Screening for colon cancer (Acute) Encounter for screening for malignant neoplasm of prostate (Acute) Hypermobility arthralgia (Acute) Osteoporosis (Acute) Right thigh pain (Acute) Polyarthralgia (Acute) Chronic pain (Acute) Chronic, continuous use of opioids (Acute) Stomach cramps (Acute) Mast cell disorder (Acute) Abnormal chest xray (Acute) Elevated white blood cell count (Chronic) Mast cell activation syndrome (Acute) Diverticula of colon (Acute) Diarrhea (Acute) Shoulder pain with history of repair of rotator cuff (Acute) Chronic neck pain (Acute) History of shingles (Acute) Migraine headache with aura (Acute) Stress headaches (Acute) Enlarged lymph nodes (Acute) Due for screening (Acute) Tonsil stone (Acute) Strep throat (Acute) Encounter for quality of life palliative care (Acute) Quality of life palliative care patient (Acute) Dysuria (Acute) Left testicular pain (Acute) Joint pain (Acute) Elevated plasma metanephrines (Acute) Abnormal EKG (Acute) Precordial chest pain (Acute) Abdominal pain (Acute) Anxiety (Acute) Skin mole (Acute) Chronic pain due to trauma (Acute) Vitamin D deficiency (Acute) Chronic gastritis without bleeding (Acute) History of femur fracture (Acute) Mast cell activation syndrome (Acute) Past Medical History Medical History Elevated plasma metanephrines Anxiety Mast cell activation syndrome History of femur fracture Family History Family History Father Heart disease Mother No problems noted. Paternal Grandfather Heart disease Maternal Grandfather Lung cancer Paternal Uncle Neurofibroma Mother Diabetes Maternal Grandmother Diabetes Heart attack Brother Thyroid disease Hx of cholecystectomy Sister Thyroid disease Surgical History Surgical History Deficient knowledge of leg surgery History of adenoidectomy Social History Social History Household Members: Spouse and Children Housing: House Alcohol intake: never Patient Tobacco Use Status: Never used Tobacco Tobacco use type: Cigarette Years Smoked: 5 e-Cigarette/Vaping Use: Never Used Second Hand Smoke Exposure: No Substance Use Type: Marijuana Advance Directives: No Advance Directives Information Provided: Yes Advance Directives Date on File: 08/02/22 service: Yes ([employer]) Current occupational status: disabled Cognitive needs: No Hearing needs: No Vision needs: No Meds Allergies Allergy/AdvReac Type Severity Reaction Status Date / Time nortriptyline [Pamelor] Allergy Severe Blurred Verified 03/18/24 09:46 vision Milk Containing Products Allergy Intermediate stomach Verified 03/18/24 09:46 (Dairy) upset [Milk Containing Products] azithromycin [AZITHROMYCIN] AdvReac Severe DIARRHEA, Verified 03/18/24 09:46 stomach pain,vomiting clonidine AdvReac Severe Opposite Verified 03/18/24 09:46 reaction high blood pressure. duloxetine [From CYMBALTA] AdvReac Severe undesired Verified 03/18/24 09:46 effect ibuprofen [IBUPROFEN] AdvReac Severe STOMACH Verified 03/18/24 09:46 UPSET, vomiting meloxicam AdvReac Severe stomach Verified 03/18/24 09:46 upset acetaminophen [From TYLENOL] AdvReac Intermediate STOMACH Verified 03/18/24 09:46 UPSET aspirin AdvReac Intermediate vomiting Verified 03/18/24 09:46 bupropion [From Wellbutrin] AdvReac Intermediate dizziness Verified 03/18/24 09:46 NSAIDS (Non-Steroidal AdvReac Intermediate STOMACH Verified 03/18/24 09:46 Anti-Inflamma UPSET [NSAIDS (NON-STEROIDAL ANTI-INFLAMMA] topiramate [Topamax] AdvReac Intermediate unable to Verified 03/18/24 09:46 tolerate tramadol [Ultram] AdvReac Intermediate Unable to Verified 03/18/24 09:46 tolerate morphine AdvReac flushed Uncoded 03/18/24 09:46 Home Medications ?Medication ?Instructions ?Recorded ?Confirmed ?Last Taken ?Type meclizine 12.5 mg tablet 25 mg PO Q8H PRN Dizziness 10/09/20 01/09/23 Unknown History cromolyn 100 mg/5 mL oral 300 mg PO QID 07/30/22 01/09/23 07/30/22 History concentrate (Gastrocrom) sucralfate 1 gram tablet (Carafate) 1 g PO BID PRN Acid Reflux 07/30/22 01/09/23 Unknown History Ketotifen 1 mg PO 2XD Mass cell stabalizer 01/11/24 Unknown History Exam Pertinent Lab Results Pertinent Lab Results: Laboratory Tests 12/28/23 16:22 WBC 11.4 H Hgb 16.2 Hct 46.7 Plt Count 403 H Sodium 137 Potassium 3.2 L Chloride 102 Carbon Dioxide 24 BUN 9 Creatinine 0.86 Assessment and Plan Assessment Anesthesia Assessment: Chart Reviewed Documented by User: Alix Rios MD 03/27/24 14:33 [facility] Past Medical History Medical History Elevated plasma metanephrines Anxiety Mast cell activation syndrome History of femur fracture Family History Family History Father Heart disease Mother No problems noted. Paternal Grandfather Heart disease Maternal Grandfather Lung cancer Paternal Uncle Neurofibroma Mother Diabetes Maternal Grandmother Diabetes Heart attack Brother Thyroid disease Hx of cholecystectomy Sister Thyroid disease Family history of problems with anesthesia: No Surgical History Surgical History Deficient knowledge of leg surgery History of adenoidectomy History of Problems with Anesthesia: No Social History Social History Household Members: Spouse and Children Housing: House Alcohol intake: never Patient Tobacco Use Status: Never used Tobacco Tobacco use type: Cigarette Years Smoked: 5 e-Cigarette/Vaping Use: Never Used Second Hand Smoke Exposure: No Substance Use Type: Marijuana Advance Directives: No Advance Directives Information Provided: Yes Advance Directives Date on File: 09/06/22 service: Yes ([employer]) Current occupational status: disabled Cognitive needs: No Hearing needs: No Vision needs: No Meds Allergies Allergy/AdvReac Type Severity Reaction Status Date / Time nortriptyline [Pamelor] Allergy Severe Blurred Verified 03/18/24 09:46 vision Milk Containing Products Allergy Intermediate stomach Verified 03/18/24 09:46 (Dairy) upset [Milk Containing Products] azithromycin [AZITHROMYCIN] AdvReac Severe DIARRHEA, Verified 03/18/24 09:46 stomach pain,vomiting clonidine AdvReac Severe Opposite Verified 03/18/24 09:46 reaction high blood pressure. duloxetine [From CYMBALTA] AdvReac Severe undesired Verified 03/18/24 09:46 effect ibuprofen [IBUPROFEN] AdvReac Severe STOMACH Verified 03/18/24 09:46 UPSET, vomiting meloxicam AdvReac Severe stomach Verified 03/18/24 09:46 upset acetaminophen [From TYLENOL] AdvReac Intermediate STOMACH Verified 03/18/24 09:46 UPSET aspirin AdvReac Intermediate vomiting Verified 03/18/24 09:46 bupropion [From Wellbutrin] AdvReac Intermediate dizziness Verified 03/18/24 09:46 NSAIDS (Non-Steroidal AdvReac Intermediate STOMACH Verified 03/18/24 09:46 Anti-Inflamma UPSET [NSAIDS (NON-STEROIDAL ANTI-INFLAMMA] topiramate [Topamax] AdvReac Intermediate unable to Verified 03/18/24 09:46 tolerate tramadol [Ultram] AdvReac Intermediate Unable to Verified 03/18/24 09:46 tolerate morphine AdvReac flushed Uncoded 03/18/24 09:46 Home Medications ?Medication ?Instructions ?Recorded ?Confirmed ?Last Taken ?Type meclizine 12.5 mg tablet 25 mg PO Q8H PRN Dizziness 10/09/20 01/09/23 Unknown History cromolyn 100 mg/5 mL oral 300 mg PO QID 07/30/22 01/09/23 07/30/22 History concentrate (Gastrocrom) sucralfate 1 gram tablet (Carafate) 1 g PO BID PRN Acid Reflux 07/30/22 01/09/23 Unknown History Ketotifen 1 mg PO 2XD Mass cell stabalizer 01/11/24 Unknown History Exam Airway Mallampati Class: III TM Dist: >3cm Neck ROM: Full Heart: rrr Lungs: cta Assessment and Plan Assessment Anesthesia Assessment: Anesthesia Plan Discussed Final Anesthetic Review Family History of Problems with Anesthesia: No History of Problems with Anesthesia: No NPO: Yes ASA Class: III Final Preanesthetic Review: No Changes in Pt Med Stat, Meds/Allgs Chart Reviewed and Consent Obtained/Reviewed Patient Risk: Intermediate Procedure Risk: Intermediate Anesthetic Plan Anesthetic Plan: MAC: Disposition: Standard PACU
--- NOTE | 2024-03-27 14:30 | MHC.SHP ---
Pre-Procedural Eval Section A - 24 Hr Update-Section A only Date of Service: 03/27/24 Section B - Complete if H&P > 30 days Chief Complaint: Dysphagia, unspecified Relevant Family History (Specify if Yes): No Relevant Social History: Other (specify) (THC) Present Medications: see Short Stay Collaborative assessment Medical History: Significant History (Elevated plasma metanephrines Anxiety Mast cell activation syndrome History of femur fracture) History of Previous Operations: Relevant previous surgery/procedure and date(s) (Deficient knowledge of leg surgery History of adenoidectomy) Allergies: Allergies Allergy/AdvReac Type Severity Reaction Status Date / Time nortriptyline [Pamelor] Allergy Severe Blurred Verified 03/18/24 09:46 vision Milk Containing Products Allergy Intermediate stomach Verified 03/18/24 09:46 (Dairy) upset [Milk Containing Products] azithromycin [AZITHROMYCIN] AdvReac Severe DIARRHEA, Verified 03/18/24 09:46 stomach pain,vomiting clonidine AdvReac Severe Opposite Verified 03/18/24 09:46 reaction high blood pressure. duloxetine [From CYMBALTA] AdvReac Severe undesired Verified 03/18/24 09:46 effect ibuprofen [IBUPROFEN] AdvReac Severe STOMACH Verified 03/18/24 09:46 UPSET, vomiting meloxicam AdvReac Severe stomach Verified 03/18/24 09:46 upset acetaminophen [From TYLENOL] AdvReac Intermediate STOMACH Verified 03/18/24 09:46 UPSET aspirin AdvReac Intermediate vomiting Verified 03/18/24 09:46 bupropion [From Wellbutrin] AdvReac Intermediate dizziness Verified 03/18/24 09:46 NSAIDS (Non-Steroidal AdvReac Intermediate STOMACH Verified 03/18/24 09:46 Anti-Inflamma UPSET [NSAIDS (NON-STEROIDAL ANTI-INFLAMMA] topiramate [Topamax] AdvReac Intermediate unable to Verified 03/18/24 09:46 tolerate tramadol [Ultram] AdvReac Intermediate Unable to Verified 03/18/24 09:46 tolerate morphine AdvReac flushed Uncoded 03/18/24 09:46 Review of Systems Sugical H&P ROS: Negative: Constitution, Cardiovascular, Respiratory, Neurological, Psychiatric, Hem-Onc, Allergic/Immunologic, Gastrointestinal, Genitourinary, Musculoskeletal, Integumentary, Endocrine and Eyes/Ears/Nose/Throat Exam Surgical H&P Exam: Normal: HEENT, Normal: Heart, Normal: Lungs, Normal: Extremities, Normal: Abdomen, Normal: Skin and Normal: Neurological Plan Diagnosis/Plan: Unchanged I have reviewed the history and physical and performed a pertinent physical examination on my patient. No changes have occurred unless specified. Time Spent With Patient Time: Total time managing care of this patient today ____ minutes.
--- NOTE | 2024-03-27 14:33 | W.PM.OPN ---
Operative Note Operative Note Date of Service: 03/27/24 Narrative: Procedure Description: EGD Indication: Dysphagia, abdominal pain Anesthesia: MAC FLEXIBLE TRANSORAL UPPER GASTROINTESTINAL ENDOSCOPY UPPER ENDOSCOPY Consent: Indications for the procedure and potential complications of bleeding, perforation, reaction to medications and missed diagnosis were discussed with the patient and informed consent was obtained. Instrument: Olympus GIF H 190 J mid size upper endoscope Monitoring: Vital signs and clinical assessment, continuous EKG monitoring, Pulse oximetry, Carbon Dioxide monitoring and blood pressure monitoring were done throughout the procedure. Procedure: The patient was placed in the left lateral decubitis position and pre-procedure medications were administered and a bite block was placed. The endoscope was inserted into the mouth and advanced under direct vision to the third part of duodenum. A careful inspection was made as the upper endoscope was withdrawn including a retroflexed examination of the proximal stomach; Findings and interventions are described below. Findings: Larynx:normal Esophagus: GE junction at 40 cm, diaphragm hiatus at 40 cm, balloon dilation done to 20 mm at LES and UES, no tear seen, bx taken from GEJ, distal and proximal esophagus Stomach: normal . Biopsies were obtained. Grade 2 flap valve on retroflexed examination of the cardia. Pylorus stretched to 20 mm using wire guided balloon technique ,no tears seen Duodenum: Normal bulb and descending duodenum, bx taken There was reduced motility noted of esophagus, stomach and small bowel Intervention: Biopsies as noted above, balloon dilation both with and w/o wire guidance Impression/Findings: dysmotility PLAN: consider trial of motegrity, relistor or movantik GERD precautions if ongoing sx expand w/u with manometry, maybe Us doppler
[2024-03-27 14:34] VITALS: BMI 18.7
[2024-03-27 14:36] VITALS: BP 126/82; PULSE 87; RESP 20; TEMP 36.1; O2SAT 95
[2024-03-27] MEDS: Lactated Ringers 1,000 ML 100 ML IVCONT (14:38)
[2024-03-27 15:02] VITALS: BP 102/65; PULSE 83; RESP 16; TEMP 36.3; O2SAT 95
[2024-03-27 15:17] VITALS: BP 98/66; PULSE 66; RESP 16; O2SAT 96
[2024-03-27 15:32] VITALS: BP 117/76; PULSE 89; RESP 18; TEMP 36.4; O2SAT 97
[2024-03-27 15:47] VITALS: BP 120/75; PULSE 89; RESP 18; TEMP 36.4; O2SAT 98
== END 2024-03-27 16:23 | disposition home or self-care (01) ==
PROVIDERS: PCP Family Medicine; Visit Provider Internal Medicine Gastroenterology
PROC: (CPT 43249; principal; 2024-03-27 14:30)
DX: R13.10 Dysphagia, unspecified (principal); R10.9 Unspecified abdominal pain; K22.4 Dyskinesia of esophagus; R19.4 Change in bowel habit
CPT/HCPCS: 43249; 43245; 43239; 88305; 88313; 88342; C1726; J2704

== ENCOUNTER → 2024-03-27 11:38 | Outpatient (BNV) | payer MEDICARE, SELFPAY | PROVIDERS: PCP Family Medicine; Visit Provider Internal Medicine Gastroenterology | DX: R13.10 Dysphagia, unspecified (principal); R10.9 Unspecified abdominal pain; K22.4 Dyskinesia of esophagus; K31.84 Gastroparesis | CPT/HCPCS: 43239; 43245; 43249 ==

== ENCOUNTER 2024-04-08 14:04 | Outpatient (AMB) | payer MEDICARE, SELFPAY ==
--- NOTE | 2024-04-08 14:05 | A.OFFVIS_ITS ---
Intake Visit Reasons: s/p egd dilation Intake Note: Eleuterio presents as a telehealth today for follow up EGD w/ Dilation. CC: He is still having the chest pains and he is not sure if it may be the relation to the stomach. If so then he may need to be assessed by cardio or pulmonology. He has a question about Mast Cell because his PCP had mentioned it. He has a specialist that he sees as well. He wakes up 3am with anxiety and up all night dealing with the symptoms - states he drinks water to deal with it as well. He states that later in the morning his urine is almost orange and he feels like he is having issues with kidneys - he is having headaches and issues with dizziness. He states that he is having soreness in his abdomen at times as well. He also has sweats and chills. [facility] Required: No Allergies nortriptyline [Pamelor] Allergy (Severe, Verified 04/08/24 14:05) Blurred vision Milk Containing Products (Dairy) [Milk Containing Products] Allergy (Intermediate, Verified 04/08/24 14:05) stomach upset azithromycin [AZITHROMYCIN] Adverse Reaction (Severe, Verified 04/08/24 14:05) DIARRHEA, stomach pain,vomiting clonidine Adverse Reaction (Severe, Verified 04/08/24 14:05) Opposite reaction high blood pressure. duloxetine [From CYMBALTA] Adverse Reaction (Severe, Verified 04/08/24 14:05) undesired effect ibuprofen [IBUPROFEN] Adverse Reaction (Severe, Verified 04/08/24 14:05) STOMACH UPSET, vomiting meloxicam Adverse Reaction (Severe, Verified 04/08/24 14:05) stomach upset acetaminophen [From TYLENOL] Adverse Reaction (Intermediate, Verified 04/08/24 14:05) STOMACH UPSET aspirin Adverse Reaction (Intermediate, Verified 04/08/24 14:05) vomiting bupropion [From Wellbutrin] Adverse Reaction (Intermediate, Verified 04/08/24 14:05) dizziness NSAIDS (Non-Steroidal Anti-Inflamma [NSAIDS (NON-STEROIDAL ANTI-INFLAMMA] Adverse Reaction (Intermediate, Verified 04/08/24 14:05) STOMACH UPSET topiramate [Topamax] Adverse Reaction (Intermediate, Verified 04/08/24 14:05) unable to tolerate tramadol [Ultram] Adverse Reaction (Intermediate, Verified 04/08/24 14:05) Unable to tolerate morphine Adverse Reaction (Uncoded 04/08/24 14:05) flushed HPI HPI s/p egd dilation: Details: 43 y/o m being called for f/u RECAP: Seen at [facility] for ongoing undifferentiated abdominal pain, with no obvious causes despite multiple tests when seen last he was feeling generally down for 1 month having pain LLQ can be burning , can feel hard in the skin also has right sided ear ache, feels ear is blocked had vertigo type sx, taking meclizine which has helped a little taking zofran which helps nausea on fentanyl 100 mcg patch every 2 days going to toilet 2-5 times/day no fever appetite is poor, weight is stable sputum production-white or yellow, sore wrist joints he had mental fogginess I suspected he had mast cell disorder, and he took cromolyn which he took for a 6 months-year and which he think helped he stopped it 8 months ago because he thought it was making him constipated and he was trying to eliminate meds could be causing it, also didn;t eant his pain meds reduced as he didn;t think those were responsible he stopped anti histamines as he thought htey might have been causing palpitations, but 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 I did capsule study, didn;t see all of small bowel, saw maybe 2/3rd and looked normal RAST basic panel--neg CBC, BMP, LFT< normal, low b1 (better on repeat), low vit c and vit d taking supplements Offered amadou, trying to get PA running diagnosis: MARYCRUZ and autonomic dysfunction Follow up: 11/2019 current meds_ cromolyn, atarax, axid, zofran prn, stopped meclizine (felt it wasn;t needed) feels he has gained weight now pain is much less vomited 3 times last week, nausea is overall improved being referred to pain management, fentanyl 100 mcg overall he feels is going in a good direction and improved he has seen Dr Velasquez allergy medicine and commenced on ketotifen, also discussed dynamic neural retraining he was having good success with ketotifen, helping mast cell sx he was awaiting cardio w/u for abn ECG, mesenteric duplex was normal, liver normal on US He had an admission: 07/2022 with nausea and vomiting, treated conservatively with fluids labs with raised WCC Ct imaging with no acute abdominal or pelvic findings, CXR normal He was referred to hem due to high WCC and thought to be benign possibly due to THC use He had EGD dibe 03/27/24 with balloon dilation for dysohagia , path with chronic inflammation at [facility] He was still taking fentanyl patch 50 mcg and morphine PO for back pain INTERIM: He feesl the balloon dilaton helped and no issues with swallowing now he wants to ask about his meds, he can have panic attacks at night he has noted intermittent dark appearing urine, last UA 01/20 was normal quercetin works well but can have some rebound pain following day EXAM: GENERAL: The patient is well developed and nontoxic, relaxed appearing Assessment & Plan (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 Paternal Grandfather Heart disease Maternal Grandfather Lung cancer Paternal Uncle Neurofibroma Mother Diabetes Maternal Grandmother Diabetes Heart attack Brother Thyroid disease Hx of cholecystectomy Sister Thyroid disease Social History Household Members: Spouse and Children Housing: House Alcohol intake: never Patient Tobacco Use Status: Never used Tobacco Tobacco use type: Cigarette Years Smoked: 5 e-Cigarette/Vaping Use: Never Used Second Hand Smoke Exposure: No Substance Use Type: Marijuana Advance Directives Date on File: 08/02/22 service: Yes ([employer]) Current occupational status: disabled Cognitive needs: No Hearing needs: No Vision needs: No Telehealth Telehealth Telehealth Platform: [employer] Location of provider rendering services: practice address Location of patient: address on file Patient Identification confirmed using: Name, : Yes Telehealth method: video Patient verbally consented to treatment: Yes Patient verbally consented to billing insurance company: Yes Patient informed of any privacy concerns related to visit: Yes Minutes spent on Phone/Video with Pt.: 14 Assessment & Plan Assessment & Plan (1) Dysphagia: Code(s): R13.10 - Dysphagia, unspecified Category: Medical Plan: resolved (2) Mast cell activation syndrome: Code(s): D89.40 - Mast cell activation, unspecified Category: Medical Plan: quercetin BID- 500 mg Coding Level of Care Code Tele Est Pt Level 3 (37227) Diagnoses Dysphagia R13.10 Mast cell activation syndrome D89.40
== END 2024-04-08 15:06 | disposition home or self-care (01) ==
LOC: HO.HGI 14:05
PROVIDERS: PCP Family Medicine; Visit Provider Internal Medicine Gastroenterology
DX: R13.10 Dysphagia, unspecified (principal); D89.40 Mast cell activation, unspecified
CPT/HCPCS: 99213

== ENCOUNTER → 2024-04-08 14:04 | Outpatient (BNVA) | payer MEDICARE, SELFPAY | PROVIDERS: PCP Family Medicine; Visit Provider Internal Medicine Gastroenterology ==

== ENCOUNTER 2024-05-15 15:46 | Outpatient (AMB) | payer MEDICARE, SELFPAY ==
[2024-05-15 15:56] VITALS: BP 126/74; PULSE 100; O2SAT 97; BMI 18.2
--- NOTE | 2024-05-15 15:56 | A.OFFPC_ITS ---
Vital Signs 05/15/24 15:56 Height 5 ft 10 in Weight 127 lb BMI 18.2 BP 126/74 Blood Pressure Location Lt brachial Position Sitting Pulse 100 Pulse Source Pulse Oximeter Pulse Oximetry (%) 97 Oxygen Delivery Method Room Air Intake Visit Reasons: Follow up chronic Pain Intake Note: Patient is here to follow up on chronic pain, and needs refill of Fentaynal and Lorazepam. Accompanied by: Parent Allergies nortriptyline [Pamelor] Allergy (Severe, Verified 05/15/24 16:04) Blurred vision Milk Containing Products (Dairy) [Milk Containing Products] Allergy (Intermediate, Verified 05/15/24 16:04) stomach upset azithromycin [AZITHROMYCIN] Adverse Reaction (Severe, Verified 05/15/24 16:04) DIARRHEA, stomach pain,vomiting clonidine Adverse Reaction (Severe, Verified 05/15/24 16:04) Opposite reaction high blood pressure. duloxetine [From CYMBALTA] Adverse Reaction (Severe, Verified 05/15/24 16:04) undesired effect ibuprofen [IBUPROFEN] Adverse Reaction (Severe, Verified 05/15/24 16:04) STOMACH UPSET, vomiting meloxicam Adverse Reaction (Severe, Verified 05/15/24 16:04) stomach upset acetaminophen [From TYLENOL] Adverse Reaction (Intermediate, Verified 05/15/24 16:04) STOMACH UPSET aspirin Adverse Reaction (Intermediate, Verified 05/15/24 16:04) vomiting bupropion [From Wellbutrin] Adverse Reaction (Intermediate, Verified 05/15/24 16:04) dizziness NSAIDS (Non-Steroidal Anti-Inflamma [NSAIDS (NON-STEROIDAL ANTI-INFLAMMA] Adverse Reaction (Intermediate, Verified 05/15/24 16:04) STOMACH UPSET topiramate [Topamax] Adverse Reaction (Intermediate, Verified 05/15/24 16:04) unable to tolerate tramadol [Ultram] Adverse Reaction (Intermediate, Verified 05/15/24 16:04) Unable to tolerate morphine Adverse Reaction (Uncoded 05/15/24 16:04) flushed Tobacco use date assessed: 05/15/24 Dental Screening Dental Screen Date: 01/11/24 HPI Follow up chronic Pain HPI Details Patient?presents?for?follow-up?chronic?pain?and?anxiety. Also?has?significant?weight?loss?and?loss?of?appetite. Was?seen?recently?by??Lexy?for?dysphagia?and?mast?cell?activation?disease. Patient?is?still?having?some?chest?discomfort.??Not?associated?with?exertion. [facility] Medical History Elevated plasma metanephrines Anxiety Mast cell activation syndrome History of femur fracture Surgical History Deficient knowledge of leg surgery History of adenoidectomy Family History Father Heart disease Mother No problems noted. Paternal Grandfather Heart disease Maternal Grandfather Lung cancer Paternal Uncle Neurofibroma Mother Diabetes Maternal Grandmother Diabetes Heart attack Brother Thyroid disease Hx of cholecystectomy Sister Thyroid disease Social History Household Members: Spouse and Children Housing: House Alcohol intake: never Patient Tobacco Use Status: Never used Tobacco Tobacco use type: Cigarette Years Smoked: 5 e-Cigarette/Vaping Use: Never Used Second Hand Smoke Exposure: No Substance Use Type: Marijuana Advance Directives Date on File: 08/02/22 service: Yes ([employer]) Current occupational status: disabled Cognitive needs: No Hearing needs: No Vision needs: No Questionnaire Thrive Questionnaire Date Thrive assessed: 11/09/23 RICK-7 AMB Questionnaire RICK-7 Date RICK - 7 assessed: 11/09/23 Source: Developed by Drs. Nelson López, Mindi Jackson, Siva Carbajal and colleagues, with an educational debbie from [employer]. Review of Systems Const Details: See?HPI Physical exam (Primary Care) Vital Signs: Last Vital Signs Pulse 100 05/15/24 15:56 BP 126/74 05/15/24 15:56 Pulse Ox 97 05/15/24 15:56 Oxygen Delivery Method Room Air 05/15/24 15:56 BMI result Body Mass Index 18.2 Tobacco/Smoking Status: Tobacco use Status Tobacco use date assessed 05/15/24 05/15/24 16:10 Patient Tobacco Use Status Never used Tobacco 05/15/24 16:10 Tobacco use type Cigarette 05/15/24 16:10 e-Cigarette/Vaping Use Never Used 05/15/24 16:10 Thrive Assessment: Date of Thrive Assessment Date Thrive assessed 11/09/23 05/15/24 16:10 Const General: no acute distress and well developed Nutritional Appearance: well nourished and underweight Orientation/consciousness: patient oriented x3 HENMT Head: Yes normocephalic and Yes atraumatic Eyes General: appearance normal, both eyes and all related structures Pupils: Equal, round and reactive pupils present EOM: EOMs intact bilaterally Resp Effort & Inspection: normal respiratory effort Auscultation: clear to auscultation bilaterally Cardio Rate: regular rate Rhythm: regular rhythm Heart sounds: S1 normal heart sound present, S2 normal heart sound present, no gallops, no murmurs and no rubs Neuro General: patient oriented x3 and gait normal Cranial nerves: Yes Equal, round and reactive pupils present Psych Affect: normal affect Assessment and Plan Assessment & Plan (1) Dysphagia: Code(s): R13.10 - Dysphagia, unspecified Plan: Recent?appointment?with? 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 Follow-up?with?GI?as?recommended (2) Chest pain: Code(s): R07.9 - Chest pain, unspecified Plan: Chest?pain?possibly?secondary?to?mass?cell?disorder - follow- up?with?GI?as?recommended Cardiac?exam?within?normal?limits?today Discomfort?not?associated?with?exertion Check?chest?x-ray (3) Underweight: Code(s): R63.6 - Underweight Plan: Poor?appetite?and?patient?has?lost?about?21?lb?in?the?last?6?months Script?for?Megace (4) Chronic pain due to trauma: Code(s): G89.21 - Chronic pain due to trauma Plan: Ongoing?chronic?pain Fairly?stable?on?fentanyl?and?morphine We?discussed?considering?switching?morphine?to?Dilaudid?at?a?slightly?lower?dose ?to?decrease?morphine?mg?equivalents?with?hopefully?better?pain?control Patient?appears?familiar?with?the?concept Will?discuss?at?next?visit (5) Anxiety: Code(s): F41.9 - Anxiety disorder, unspecified Plan: Stable Continue?lorazepam Refilled Orders: Orders Comprehensive Met. Panel Today D89.40 - Mast cell activation, unspecified Complete Blood Count Auto Diff Today Z00.00 - Encounter for general adult medical examination without abnormal findings XR chest 2V Today R07.9 - Chest pain, unspecified Medications: New megestrol 5 mL PO QAM 30 days 150 mL 0RF Refilled lorazepam partial fill on request 1 mg PO TID-QID 28 days 112 tabs 0RF anxiety D89.40 - Mast cell activation, unspecified fentanyl 50 mcg/hr Partial Fill upon patient request 1 patch transdermal Q48H 14 ea 0RF D89.40 - Mast cell activation, unspecified morphine Partial Fill upon patient request 15 mg PO BID 28 days PRN 56 tabs 0RF pain Coding Level of Care Code Est Pt Level 4 (61432) Diagnoses Dysphagia R13.10 Chest pain R07.9 Underweight R63.6 Chronic pain due to trauma G89.21 Anxiety F41.9
== END 2024-05-15 16:46 | disposition home or self-care (01) ==
PROVIDERS: PCP Family Medicine; Visit Provider Family Medicine
DX: R13.10 Dysphagia, unspecified (principal); R07.9 Chest pain, unspecified; R63.6 Underweight; G89.21 Chronic pain due to trauma; F41.9 Anxiety disorder, unspecified
CPT/HCPCS: 99214

== ENCOUNTER 2024-05-21 12:57 | Outpatient (REF) | payer MEDICARE, SELFPAY ==
--- NOTE | ~2024-05-21 | MM_ITS ---
EXAMINATION: BONE DENSITOMETRY CLINICAL INDICATION: Age-related osteoporosis without current pathological fracture. COMPARISON: This is the patient's baseline examination. TECHNIQUE: Using a [employer]go DXA System (software version: 13.1) manufactured by [employer], dual-energy x-ray absorptiometry was performed of the lumbar spine and left hip. The images are of good technical quality. Based on ISCD (International Society for Clinical Densitometry) standards of reporting, Z-scores instead of T-scores are reported in this study. Summary results are attached. FINDINGS: LEFT FEMUR, NECK: BMD 0.875 g/cm2, T-score -1.5, Z-score -0.7, Z-score within expected range for age. LEFT FEMUR, TOTAL: BMD 0.828 g/cm2, T-score -1.9, Z-score -1.3, Z-score within expected range for age. AP SPINE L1-L4: BMD 1.027 g/cm2, T-score -1.6, Z-score -0.9, Z-score within expected range for age. IDENTIFIED RISK FACTORS: Low body weight, glucocorticoids, secondary osteoporosis (hyperthyroidism), secondary osteoporosis (intestinal or bowel disease, not IBS), secondary osteoporosis, (hypogonadism) . HISTORY OF FRACTURE: None listed. MEDICATIONS: Vitamin D. MM/XR DEXA axial skeleton IMPRESSION: 1. DIAGNOSIS: Based on the lowest Z-score value of -1.3 in the total femur, the patient's bone density is within the expected range for age. 2. 10-YEAR FRACTURE RISK PREDICTION, FRAX: Not performed in this patient outside the age range of 50-90 years. 3. Treatment Recommendations: NOF guidelines recommend consideration for treatment in postmenopausal women and men age 50 and older presenting with the following: -A hip or vertebral (clinical or morphometric) fracture. -T-score less than or equal to -2.5 at the femoral neck or spine after appropriate evaluation to exclude secondary causes. -Low bone mass at the hip or spine and a 10-year fracture probability by FRAX of greater than or equal to 3% for hip fracture or greater than or equal to 20% for major osteoporotic fracture based on the [place] adapted WHO algorithm. 4. Other Recommendations: All treatment decisions require clinical judgment and consideration of individual patient factors, including patient preferences, comorbidities, previous drug use, risk factors not captured in the FRAX model (e.g. frailty, falls, vitamin D deficiency, increased bone turnover, interval significant decline in bone density) and possible under or overestimation of fracture risk by FRAX. FUTURE SCAN RECOMMENDATION: People with diagnosed cases of osteoporosis or at high risk for fracture should have regular bone mineral density tests. For patients eligible for Medicare, routine testing is allowed once every 2 years. The testing frequency can be increased to one year for patients who have rapidly progressing disease, those who are receiving or discontinuing medical therapy to restore bone mass, or have additional risk factors.
== END 2024-05-21 12:58 | disposition home or self-care (01) ==
LOC: HO.MAMMO 12:57
PROVIDERS: PCP Family Medicine; Visit Provider Family Medicine
DX: Z13.89 Encounter for screening for other disorder (principal)
CPT/HCPCS: 77080

== ENCOUNTER 2024-05-21 13:40 | Outpatient (REF) | payer MEDICARE, SELFPAY ==
--- NOTE | ~2024-05-21 | XR_ITS ---
EXAMINATION: XR CHEST CLINICAL INFORMATION: Chest pain for several months. COMPARISON: 07/30/2022, 11/02/2021. TECHNIQUE: 2 views of the chest. FINDINGS: The lungs are well inflated. There is no gross pneumothorax. Heart size is normal. Stable cardiomediastinal silhouette. No pleural effusion. No new focal consolidation to suggest pneumonia. XR/XR chest 2V IMPRESSION: No evidence of pneumonia.
[2024-05-21 14:18] LABS: MANUAL DIFF FLAG NO
[2024-05-21 14:39] LABS: Basophils Absolute Auto 0.1 X10*3/uL (0.0-0.2); Basophils Percent Auto 0.5 % (0-2); Eosinophils Absolute Auto 0.1 X10*3/uL (0.0-0.4); Eosinophils Percent Auto 1.4 % (0-4); Hematocrit 46.8 % (42.0-52.0); Hemoglobin 15.7 g/dl (14.0-18.0); Imm Gran Abs Auto 0.03 X10*3/uL (0.00-0.03); Imm Gran Pct Auto 0.3 % (0.0-0.4); Lymphocytes Absolute Auto 2.6 X10*3/uL (1.2-4.9); Lymphocytes Percent Auto 27.4 % (20-40); Mean Corpuscular HGB Conc 33.5 g/dl (31.0-36.0); Mean Corpuscular Hemoglobin 27.3 pg (27.0-33.0); Mean Corpuscular Volume 81.4 fL (80.0-98.0); Mean Platelet Volume 8.6 fL (9.4-12.4); Monocytes Absolute Auto 0.7 X10*3/uL (0.1-1.2); Monocytes Percent Auto 7.6 % (2-11); Neutrophils Absolute Auto 5.9 x10*3/uL (2.0-8.3); Neutrophils Percent Auto 62.8 % (45-73); Platelet Count 340 X10*3/uL (160-400); Red Blood Count 5.75 X10*6/uL (4.60-5.80); Red Cell Distribution Width 13.2 % (11.0-16.0); White Blood Count 9.5 X10*3/uL (4.8-10.8)
[2024-05-21 15:14] LABS: Alanine Aminotransferase 9 U/L (0-40); Albumin Level 4.7 g/dL (3.5-5.0); Alkaline Phosphatase 61 U/L (39-117); Anion Gap 13 (12-20); Aspartate Amino Transferase 14 U/L (5-37); Bilirubin Total 1.1 mg/dL (0.0-1.0); Blood Urea Nitrogen 8 mg/dL (9-16); Calcium 10.1 mg/dL (8.4-10.2); Carbon Dioxide 31 mmol/L (22-29); Chloride 104 mmol/L (96-108); Estimated Glomerular Filt Rate > 60; Glucose Random 91 mg/dL (60-115); Potassium 4.9 mmol/L (3.3-5.1); Sodium 143 mmol/L (135-145); Total Protein 7.2 g/dL (6.5-8.0)
[2024-05-21 15:33] LABS: Folate 10.1 ng/mL (> or = 4.0); Vitamin B12 334 pg/mL (200-900)
[2024-05-21 15:34] LABS: Amphetamine Screen Urine Not Detected (Not Detect); Barbiturates, Urine Not Detected (Not Detect); Benzodiazepines Screen Urine Not Detected (Not Detect); Buprenorphine Scr Not Detected (Not Detect); Cannabinoid Screen Urine POSITIVE (Not Detect); Cocaine Screen Urine Not Detected (Not Detect); Fentanyl, urine POSITIVE (Not Detect); Methadone Screen, Urine Not Detected (Not Detect); Opiate Screen Urine POSITIVE (Not Detect); Oxycodone Screen Urine Not Detected (Not Detect); Phencyclidine Screen Urine Not Detected (Not Detect)
== END 2024-05-21 13:41 | disposition home or self-care (01) ==
LOC: HO.XRAY 13:40
PROVIDERS: Absent Provider Family Medicine; PCP Family Medicine; Visit Provider Nurse Practitioner Family
DX: Z13.820 Encounter for screening for osteoporosis (principal); R07.9 Chest pain, unspecified; Z00.00 Encounter for general adult medical examination without abnormal findings; D89.40 Mast cell activation, unspecified; G89.29 Other chronic pain; E53.8 Deficiency of other specified B group vitamins; E55.9 Vitamin D deficiency, unspecified; M81.0 Age-related osteoporosis without current pathological fracture
CPT/HCPCS: 71046; 77080; 80053; 80307; 82306; 82607; 82746; 85025

== ENCOUNTER 2024-06-05 11:00 | Outpatient (REF) | payer MEDICARE, SELFPAY ==
[2024-06-06 04:30] LABS: CDiff Gene PCR NEGATIVE (Negative)
[2024-06-06 15:10] LABS: Adenovirus F 40/41 Not Detected (Not Detect.); Astrovirus Not Detected (Not Detect.); Campylobacter Not Detected (Not Detect.); Cryptosporidium Not Detected (Not Detect.); Cyclospora cayetanensis Not Detected (Not Detect.); E. coli EAEC Not Detected (Not Detect.); E. coli EPEC Not Detected (Not Detect.); E. coli ETEC Not Detected (Not Detect.); E. coli STEC Not Detected (Not Detect.); Entamoeba histolytica Not Detected (Not Detect.); Giardia lamblia Not Detected (Not Detect.); Norovirus GI/GII Not Detected (Not Detect.); Plesiomonas shigelloides Not Detected (Not Detect.); Rotavirus A Not Detected (Not Detect.); Salmonella Not Detected (Not Detect.); Sapovirus Not Detected (Not Detect.); Shigella sp./EIEC Not Detected (Not Detect.); Vibrio Not Detected (Not Detect.); Vibrio Cholerae Not Detected (Not Detect.); Yersinia enterocolitica Not Detected (Not Detect.)
== END 2024-06-05 11:01 | disposition home or self-care (01) ==
LOC: HO.HMGCLNP 11:00
PROVIDERS: PCP Family Medicine; Visit Provider Family Medicine
DX: R19.7 Diarrhea, unspecified (principal)
CPT/HCPCS: 87493; 87507

== ENCOUNTER 2024-08-12 08:33 | Outpatient (AMB) | payer MEDICARE, SELFPAY ==
--- NOTE | 2024-08-12 08:41 | A.OFFPC_ITS ---
Vital Signs 08/12/24 08:47 Height 5 ft 10 in Weight 145 lb 6 oz BMI 20.9 BP 120/80 Blood Pressure Location Lt brachial Position Sitting Respiration 12 Pulse 76 Pulse Source Pulse Oximeter Temp 97.6 F Temp Source Tympanic Pulse Oximetry (%) 97 Oxygen Delivery Method Room Air Intake Visit Reasons: follow up test Intake Note: follow up medication for chronic pain Allergies nortriptyline [Pamelor] Allergy (Severe, Verified 08/12/24 08:43) Blurred vision Milk Containing Products (Dairy) [Milk Containing Products] Allergy (Intermediate, Verified 08/12/24 08:43) stomach upset azithromycin [AZITHROMYCIN] Adverse Reaction (Severe, Verified 08/12/24 08:43) DIARRHEA, stomach pain,vomiting clonidine Adverse Reaction (Severe, Verified 08/12/24 08:43) Opposite reaction high blood pressure. duloxetine [From CYMBALTA] Adverse Reaction (Severe, Verified 08/12/24 08:43) undesired effect ibuprofen [IBUPROFEN] Adverse Reaction (Severe, Verified 08/12/24 08:43) STOMACH UPSET, vomiting meloxicam Adverse Reaction (Severe, Verified 08/12/24 08:43) stomach upset acetaminophen [From TYLENOL] Adverse Reaction (Intermediate, Verified 08/12/24 08:43) STOMACH UPSET aspirin Adverse Reaction (Intermediate, Verified 08/12/24 08:43) vomiting bupropion [From Wellbutrin] Adverse Reaction (Intermediate, Verified 08/12/24 08:43) dizziness NSAIDS (Non-Steroidal Anti-Inflamma [NSAIDS (NON-STEROIDAL ANTI-INFLAMMA] Adverse Reaction (Intermediate, Verified 08/12/24 08:43) STOMACH UPSET topiramate [Topamax] Adverse Reaction (Intermediate, Verified 08/12/24 08:43) unable to tolerate tramadol [Ultram] Adverse Reaction (Intermediate, Verified 08/12/24 08:43) Unable to tolerate morphine Adverse Reaction (Uncoded 05/15/24 16:04) flushed Tobacco use date assessed: 05/15/24 Dental Screening Dental Screen Date: 01/11/24 HPI follow up test HPI Details After?EGD?with?dilation?performed?due?to?complaints?of?dysphagia. Per?GI,?dysphagia?has?resolved. GI?also?evaluated?MCAS Patient?is?on?cromolyn,?Atarax, and also fentanyl. GI plan was 1/ advised judith scheduled quercetin BID and assess response due to anti histamine effects 2/ Can try to reduce opiate use as these do increase histamine - referred to pain management. 3/ repeat UA 4/ can consider trial of budesonide if o ngoing sx I?saw?patient?in?April?and?he?has?significant?weight?loss?and?low?BMI. Gave?him?a?trial?of?megestrol. Also?ordered?urine?drug?screening?which?was?appropriate. Pt notes he had seen pain management intermittently. Pt notes he discontinued amitriptyline due to adverse effects. HPI Comments History of Present Illness Details Documentation assistance for Alex Heart MD, was provided by Delano Mcpherson,? Brand Specialist on 08/12/2024 at 9:03 AM EST. I, Dr. Heart, have read, observed, and verified documentation. [facility] Medical History Elevated plasma metanephrines Anxiety Mast cell activation syndrome History of femur fracture Surgical History Deficient knowledge of leg surgery History of adenoidectomy Family History Father Heart disease Mother No problems noted. Paternal Grandfather Heart disease Maternal Grandfather Lung cancer Paternal Uncle Neurofibroma Mother Diabetes Maternal Grandmother Diabetes Heart attack Brother Thyroid disease Hx of cholecystectomy Sister Thyroid disease Social History Household Members: Spouse and Children Housing: House Alcohol intake: never Patient Tobacco Use Status: Never used Tobacco Tobacco use type: Cigarette Years Smoked: 5 e-Cigarette/Vaping Use: Never Used Second Hand Smoke Exposure: No Substance Use Type: Marijuana Advance Directives Date on File: 08/02/22 service: Yes ([employer]) Current occupational status: disabled Cognitive needs: No Hearing needs: No Vision needs: No Questionnaire Thrive Questionnaire Date Thrive assessed: 11/09/23 RICK-7 AMB Questionnaire RICK-7 Date RICK - 7 assessed: 11/09/23 Source: Developed by Drs. Nelson López, Mindi Jackson, Siva Carbajal and colleagues, with an educational debbie from [employer]. Review of Systems Const Denies chills, Denies fatigue, Denies fever(s), Denies headache(s) and Denies weakness ENT Denies dizziness and Denies headache(s) Card Denies dyspnea Resp Denies cough, Denies dyspnea, Denies wheezing and Denies other (shortness of breath) Musc Denies numbness and Denies tingling Neuro Denies dizziness, Denies headache(s), Denies numbness, Denies tingling and Denies weakness Psych Denies anxiety and Denies depression Endo Denies fatigue Aller/Immun Denies wheezing Physical exam (Primary Care) Vital Signs: Last Vital Signs Temp 97.6 F 08/12/24 08:47 Pulse 76 08/12/24 08:47 Resp 12 08/12/24 08:47 BP 120/80 08/12/24 08:47 Pulse Ox 97 08/12/24 08:47 Oxygen Delivery Method Room Air 08/12/24 08:47 BMI result Body Mass Index 20.9 Tobacco/Smoking Status: Tobacco use Status Tobacco use date assessed 05/15/24 08/12/24 08:50 Patient Tobacco Use Status Never used Tobacco 08/12/24 08:50 Tobacco use type Cigarette 08/12/24 08:50 e-Cigarette/Vaping Use Never Used 08/12/24 08:50 Thrive Assessment: Date of Thrive Assessment Date Thrive assessed 11/09/23 08/12/24 08:50 Const General: well developed; No acute distress Nutritional Appearance: well nourished Orientation/consciousness: patient oriented x3 HENMT Head: Yes normocephalic and Yes atraumatic Eyes General: appearance normal, both eyes and all related structures Pupils: Equal, round and reactive pupils present EOM: EOMs intact bilaterally Resp Effort & Inspection: normal respiratory effort Auscultation: clear to auscultation bilaterally Cardio Rate: regular rate Rhythm: regular rhythm Heart sounds: S1 normal heart sound present, S2 normal heart sound present, no gallops, no murmurs and no rubs Neuro General: patient oriented x3 and gait normal Cranial nerves: Yes Equal, round and reactive pupils present Psych Affect: normal affect Assessment and Plan Assessment & Plan (1) Underweight: Code(s): R63.6 - Underweight Plan: Patient?notes?that?Elavil?helped?him?gain?weight?very?well. However?he?said?the?adverse?effec ts?were?too?much?so?he?discontinued?it?and?was?wondering?about?a?lower?dose Will?trial?switching?Elavil?from?25?mg?daily?to?10?mg?daily We?discussed?that?if?he?is?still?having?adverse?effects?or?it?i s?not?helping?at?this?dose,?we?could?try?mirtazapine. (2) Dysphagia: Code(s): R13.10 - Dysphagia, unspecified Plan: This?has?resolved?with?EGD?and?dilation Follow-up?with?GI?as?recommended (3) Anxiety: Code(s): F41.9 - Anxiety disorder, unspecified Plan: Still?has?ongoing?anxiety-trying?to?restart?Elavil Continue?lorazepam Will?follow (4) Chronic pain: Code(s): G89.29 - Other chronic pain Plan: Chronic?pain?and?much?of?this?may?be?due?to?MCAS. However?as?GI?had?mentioned?and?we?have?discussed?previously, opioids?due?cause?release?of?histamine Patient?is?amenable?to?decreasing?his?opioid?medications. For?now,?will?continue?fentanyl Will?decrease?morphine immediately?release?tablets,?15?mg?b.i.d. to 7.5?mg?b.i.d. Advised?patient?to?get?back?in?touch?with?pain?management?for?follow-up (5) Left shoulder pain: Code(s): M25.512 - Pain in left shoulder Plan: Ongoing?left?shoulder?pain?and?likely?rotator?cuff?injury Referred?to?Ortho Orders: Referrals Orthopedics Referral M25.512 - Pain in left shoulder Medications: New amitriptyline 10 mg PO BEDTIME 90 tabs 1RF 90 days Changed From morphine Partial Fill upon patient request 15 mg PO BID 28 days PRN 56 tabs 0RF pain To morphine Partial Fill upon patient request 7.5 mg (1/2 x 15 mg) PO BID PRN 15 tabs 0RF pain 15 days Refilled fentanyl 50 mcg/hr Partial Fill upon patient request 1 patch transdermal Q48H 14 ea 0RF 28 days D89.40 - Mast cell activation, unspecified lorazepam partial fill on request 1 mg PO TID-QID 112 tabs 0RF anxiety 28 days D89.40 - Mast cell activation, unspecified Coding Level of Care Code Est Pt Level 4 (92321) Diagnoses Underweight R63.6 Dysphagia R13.10 Anxiety F41.9 Chronic pain G89.29 Left shoulder pain M25.512
[2024-08-12 08:47] VITALS: BP 120/80; PULSE 76; RESP 12; TEMP 36.4; O2SAT 97; BMI 20.9
== END 2024-08-12 09:17 | disposition home or self-care (01) ==
PROVIDERS: PCP Family Medicine; Visit Provider Family Medicine
DX: R63.6 Underweight (principal); R13.10 Dysphagia, unspecified; F41.9 Anxiety disorder, unspecified; G89.29 Other chronic pain; M25.512 Pain in left shoulder

== ENCOUNTER → 2024-08-12 08:33 | Outpatient (BNVA) | payer MEDICARE, SELFPAY | PROVIDERS: PCP Family Medicine; Visit Provider Family Medicine | DX: M25.512 Pain in left shoulder (principal); F41.9 Anxiety disorder, unspecified; G89.29 Other chronic pain; R63.6 Underweight; Z79.899 Other long term (current) drug therapy | CPT/HCPCS: 99212 ==

== ENCOUNTER 2024-09-10 12:02 | Outpatient (REF) | payer MEDICARE, SELFPAY | END 2024-09-10 12:03 | disposition home or self-care (01) | LOC: HO.HOSX 12:02 | PROVIDERS: Visit Provider Orthopaedic Surgery | DX: Z13.89 Encounter for screening for other disorder (principal) ==

== ENCOUNTER → 2024-09-12 12:10 | Outpatient (BNVA) | payer MEDICARE, SELFPAY | PROVIDERS: PCP Family Medicine; Visit Provider Family Medicine ==

== ENCOUNTER → 2024-09-12 12:10 | Outpatient (BNVA) | payer MEDICARE, SELFPAY | PROVIDERS: PCP Family Medicine; Visit Provider Family Medicine | DX: D89.40 Mast cell activation, unspecified (principal); G89.29 Other chronic pain ==

== ENCOUNTER 2024-10-10 11:29 | Outpatient (REF) | payer MEDICARE, SELFPAY | END 2024-10-10 11:30 | disposition home or self-care (01) | LOC: HO.HOSX 11:29 | PROVIDERS: Visit Provider Orthopaedic Surgery | DX: Z13.89 Encounter for screening for other disorder (principal) ==

== ENCOUNTER 2024-11-08 10:30 | Outpatient (AMB) | payer MEDICARE, SELFPAY ==
--- NOTE | 2024-11-08 10:44 | A.OFFPC_ITS ---
Vital Signs 11/08/24 10:52 Height 5 ft 10 in Weight 150 lb 6 oz BMI 21.6 BP 104/68 Blood Pressure Location Rt brachial Position Sitting Pulse 96 Pulse Source Pulse Oximeter Temp 97.4 F Temp Source Temporal Artery Scan Pulse Oximetry (%) 98 Oxygen Delivery Method Room Air Intake Visit Reasons: f/u chronic pain Intake Note: Follow up chronic pain. Children and were positive for RSV last week. Coughing, fever, congestion, headache, eye pain. Unable to wear a mask because he can't breath. Needs refill on Fentanyl patch, Dilaudid, and Ativan. 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 duloxetine [From CYMBALTA] Adverse Reaction (Severe, Verified 11/08/24 10:45) undesired effect ibuprofen [IBUPROFEN] Adverse Reaction (Severe, Verified 11/08/24 10:45) STOMACH UPSET, vomiting meloxicam Adverse Reaction (Severe, Verified 11/08/24 10:45) stomach upset acetaminophen [From TYLENOL] Adverse Reaction (Intermediate, Verified 11/08/24 10:45) STOMACH UPSET aspirin Adverse Reaction (Intermediate, Verified 11/08/24 10:45) vomiting bupropion [From Wellbutrin] Adverse Reaction (Intermediate, Verified 11/08/24 10:45) dizziness NSAIDS (Non-Steroidal Anti-Inflamma [NSAIDS (NON-STEROIDAL ANTI-INFLAMMA] Adverse Reaction (Intermediate, Verified 11/08/24 10:45) STOMACH UPSET topiramate [Topamax] Adverse Reaction (Intermediate, Verified 11/08/24 10:45) unable to tolerate tramadol [Ultram] Adverse Reaction (Intermediate, Verified 11/08/24 10:45) Unable to tolerate morphine Adverse Reaction (Uncoded 11/08/24 10:45) flushed Medication List - Last Reconciled 11/08/24 by Alex Heart MD albuterol sulfate 90 mcg/actuation (Ventolin HFA) 2 puffs inhalation Q4-6H PRN 30 days amoxicillin 500 mg PO Q12H 10 days cholecalciferol (vitamin D3) 1,250 mcg PO QWEEK 28 days cromolyn (Gastrocrom) 300 mg PO QID famotidine (Pepcid AC) 20 mg PO TID 3 months fentanyl 50 mcg/hr 1 patch transdermal Q48H 28 days folic acid 0.4 mg PO DAILY 30 days guanfacine ER 1 mg PO DAILY 30 days hydromorphone (Dilaudid) 2 mg PO Q8H PRN 30 days hydroxyzine HCl 25 mg PO QID PRN [Ketotifen 1 mg PO 2XD] lorazepam 1 mg PO TID-QID 28 days meclizine 25 mg PO Q8H PRN miscellaneous medical supply iv hydration as directed for 1 ltr of fluid up to 8 times per month for inability to maintain adequate fluid intake with condition miscellaneous medical supply 1 liter of saline as directed twice a week; naloxone 4 mg/actuation (Narcan) 4 mg intranasal Q2M PRN ondansetron 8 mg PO Q8H PRN 1 month sucralfate (Carafate) 1 g PO BID PRN ubrogepant 100 mg PO DAILY PRN Tobacco use date assessed: 05/15/24 Dental Screening Dental Screen Date: 01/11/24 HPI f/u chronic pain HPI Details 44 y/o male presents to f/u chronic 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 Had changed pt's morphine to Dilaudid and significantly decreased MMEs. Notes Dialudid has been helping with pain though it has been an adjustment. Notes children and were positive for RSV last week. Has complaints of cough, fever, congestion, headache, eye pain today. Reports hx of ADHD/difficulty concentrating. [facility] Medical History Elevated plasma metanephrines Anxiety Mast cell activation syndrome History of femur fracture Surgical History Deficient knowledge of leg surgery History of adenoidectomy Family History Father Heart disease Mother No problems noted. Paternal Grandfather Heart disease Maternal Grandfather Lung cancer Paternal Uncle Neurofibroma Mother Diabetes Maternal Grandmother Diabetes Heart attack Brother Thyroid disease Hx of cholecystectomy Sister Thyroid disease Social History Household Members: Spouse and Children Housing: House Alcohol intake: never Patient Tobacco Use Status: Never used Tobacco Tobacco use type: Cigarette Years Smoked: 5 e-Cigarette/Vaping Use: Never Used Second Hand Smoke Exposure: No Substance Use Type: Marijuana Advance Directives Date on File: 08/02/22 service: Yes ([employer]) Current occupational status: disabled Cognitive needs: No Hearing needs: No Vision needs: No Questionnaire PHQ-9 Over the last 2 weeks, how often have you been bothered by any of the following problems? 1. Little interest or pleasure in doing things: several days 2. Feeling down, depressed, or hopeless: several days 3. Trouble falling or staying asleep, or sleeping too much: nearly every day 4. Feeling tired or having little energy: nearly every day 5. Poor appetite or overeating: nearly every day 6. Feeling bad about yourself - or that you are a failure or have let yourself or your family down: several days 7. Trouble concentrating on things, such as reading the newspaper or watching television: more than half the days 8. Moving or speaking so slowly that other people could have noticed. Or the opposite - being so fidgety or restless that you have been moving around a lot more than usual: not at all 9. Thoughts that you would be better off or of hurting yourself in some way: not at all Total score: 14 Source: Developed by Drs. Nelson López, Mindi Jackson, Siva Carbajal and colleagues, with an educational debbie from [employer]. Thrive Questionnaire Date Thrive assessed: 11/09/23 I am a: Patient What is your living situation today?: I have a steady place to live Within the past 12 months, did the food you bought not last and you didn't have the money to get more?: Never true Within the past 12 months, did you worry whether your food would run out before you got money to buy more?: Never true Do you have trouble paying for medicines?: No Do you have trouble getting transportation to medical appointments?: No Do you have trouble paying your heating and electricity bill?: No Do you have trouble taking care of your child, family member or friend?: No Do you have trouble with day-to-day activities such as bathing, preparing meals, shopping, managing finances, etc.?: Yes Are you currently unemployed and looking for a job?: No Are you interested in more education?: No Please select the resources that you would like help with: None Currently or been in a relationship where the following occur: No concerns reported THRIVE Score: 0 AUDIT C Alcohol Use Questionnaire (AUDIT-C) 1. How often do you have a drink containing alcohol?: Never Total Score: 0 RICK-7 AMB Questionnaire RICK-7 Date RICK - 7 assessed: 11/09/23 Feeling nervous, anxious, or on edge: 3 = Nearly every day Not being able to stop or control worryin = Several days Worrying too much about different things: 1 = Several days Trouble relaxin = Nearly every day Being so restless that it is hard to sit still: 0 = Not at all Becoming easily annoyed or irritable: 1 = Several days Feeling afraid as if something awful might happen: 1 = Several days Total RICK-7 score (0-4 normal; 5-9 mild; 10-14 moderate; 15-21 severe): 10 Source: Developed by Drs. Nelson López, Mindi Jackson, Siva Carbajal and colleagues, with an educational debbie from [employer]. Review of Systems Const Denies fatigue, Reports fever(s) and Reports headache(s) ENT Reports headache(s) and Reports nasal congestion Card Denies dyspnea Resp Reports cough, Denies dyspnea and Denies wheezing Musc Denies numbness and Denies tingling Neuro Reports headache(s), Denies numbness and Denies tingling Psych Denies anxiety and Denies depression Endo Denies fatigue Aller/Immun Denies wheezing Physical exam (Primary Care) Vital Signs: Last Vital Signs Temp 97.4 F 11/08/24 10:52 Pulse 96 11/08/24 10:52 BP 104/68 11/08/24 10:52 Pulse Ox 98 11/08/24 10:52 Oxygen Delivery Method Room Air 11/08/24 10:52 BMI result Body Mass Index 21.6 Tobacco/Smoking Status: Tobacco use Status Tobacco use date assessed 05/15/24 11/08/24 11:00 Patient Tobacco Use Status Never used Tobacco 11/08/24 11:00 Tobacco use type Cigarette 11/08/24 11:00 e-Cigarette/Vaping Use Never Used 11/08/24 11:00 PHQ-9: PHQ-9 Score PHQ-9: Total score 14 11/08/24 11:04 Thrive Assessment: Date of Thrive Assessment Date Thrive assessed 11/09/23 11/08/24 11:00 Currently or been in a relationship where the following occur: No concerns reported Const General: well developed; No acute distress Nutritional Appearance: well nourished Orientation/consciousness: patient oriented x3 HENMT Head: Yes normocephalic and Yes atraumatic Eyes General: appearance normal, both eyes and all related structures Pupils: Equal, round and reactive pupils present EOM: EOMs intact bilaterally Resp Other: Fine crackles Effort & Inspection: normal respiratory effort Neuro General: patient oriented x3 and gait normal Cranial nerves: Yes Equal, round and reactive pupils present Psych Affect: normal affect Coding Level of Care Code Est Pt Level 4 (27723) Diagnoses Chronic pain G89.29 Viral illness B34.9 Sinusitis J32.9 Difficulty concentrating R41.840 Assessment & Plan Assessment & Plan (1) Chronic pain: Code(s): G89.29 - Other chronic pain Category: Medical Plan: Had?decreased?patient's?overall?morphine?mg?equivalents?from?30 MME to?about?20 MME with?Dilaudid. Continues?fentanyl Patient?says?he?had?some?difficulty?getting?use?to?this?and?is?still?working?on? it?but?seems?optimistic?that?he?is?overall?feeling?better. Continue?current?medication?regimen Will?check?urine?drug?screen?at?next?visit (2) Viral illness: Code(s): B34.9 - Viral infection, unspecified Category: Medical Plan: Likely?viral?illness?but?patient?also?has?sinusitis?and?likely?sinus?infection Increase?fluids?and?get?plenty?of?rest Treatment?of?bacterial?sinusitis?below (3) Sinusitis: Code(s): J32.9 - Chronic sinusitis, unspecified Category: Medical Plan: Start?amoxicillin Take?all?medication?unless?there?is?a?problem.??Call?for?any?problems (4) Difficulty concentrating: Code(s): R41.840 - Attention and concentration deficit Category: Medical Plan: Patient?describes?diagnosis?ADHD. Would?like?to?try?guanfacine?which?I?have?ordered. Also?requested?fill?out?a?release?of? information?to?trying?get?his?diagnosis?of?ADHD?established. Medications: New amoxicillin 500 mg PO Q12H 10 days 20 tabs 0RF guanfacine ER 1 mg PO DAILY 30 days 30 tabs 1RF
--- OUTSIDE RECORDS SUMMARY | 2024-11-08 10:45 | XMS_ITS ---
Author Name [facility] [place] [facility] [place] Address [address] [place] [address] Care Team Providers Care Credit Card Clerk Name Role Phone RACHEL WELDON Primary Care Provider Unavailabl e Insurance Providers: All historical and current Section Date Range: From patient's date of to the date document was created. This section includes the names of all active insurance providers for the patient. Insurance Provider Type of Coverage Plan Name Start of Policy Coverage End of Policy Coverage Group Number Member ID Insurance Provider's Telephone Number Policy Johnson's Name Patient's Relationship to Policy Johnson MEDICARE (WNR) MEDICARE (M) PART B Nov 27, 2008 PART B [id number] JOSSIE PANTOJA PATIENT MEDICARE (WNR) MEDICARE (M) PART A Apr 27, 2005 PART A [id number] JOSSIE PANTOJA PATIENT Selected Encounter This section includes the information on record at CT for the Encounter. Date/Time Encounter Type Encounter Description Reason Pro vider Source Dec 21, 2023 01:07 PM Outpatient Encounter PRIMARY CARE/MEDICINE IHE Encounter Template Text not used by CT Plan of Treatment: Future Appointments (+ 6 months) and Future Tests (+/- 45 days) The Plan of Treatment section includes future care activities for the patient from all [facility] treatment[facility]. This section includes future appointments and future orders which are active, pending or scheduled. Future Appointments This section includes appointments that were scheduled to occur 6 months from the date of the Encounter, up to a maximum of 20 appointments. The data comes from all [place] treatment facilities. Appointment Date/Time Appointment Type Appointme nt Facility Name Dec 28, 2023 09:00 AM AMBULATORY - MEDICINE [facility] Social History: Smoking Status (Most current) and Tobacco Use (All prior to encounter date) This section includes the most current, and the historical, smoking and tobacco- related health factors from the [place] facility where the Encounter took place. Current Smoking Status This section includes the most current smoking, or tobacco-related health factor, from the [place] facility where the Encounter took place. Date/Time Current Smoking Status Comment Facil ity Nov 29, 2022 05:[address]-TOBACCO FORMER USER [facility] Tobacco Use History This section includes a history of the smoking, or tobacco-related health factors, that were collected on or before the date of the Encounter. The data comes from the [place] facility where the Encounter took place. Date/Time Smoking Status/Tobacco Use Comment F acility Nov 29, 2022 05:29 PM VA-TOBACCO QUIT 15 YRS OR MORE [facility] Jun 18, 2020 01:22 PM VA-TOBACCO FORMER USER [facility] Jun 18, 2020 01:[address]-TOBACCO QUIT 5 TO < 15 YRS [facility] Advance Directives: All historical and current Section Date Range: From patient's date of to the date document was created. This section includes ALL of a patient's completed or amended CT Advance and Rescinded Directives. The entries below indicate that a directive exists for the patient, but an actual copy is not included with this document. The data comes from all CT facilities. Date Advance Directives Provider Source Dec 26, 2022 ADVANCE DIRECTIVE SHANDA MEDNIA [facility] Encounter Notes: All associated encounter notes This section contains the clinical notes associated to the Encounter. Date/Time Encounter Note(s) Provider Source Dec 21, 2023 01:07 PM ADMINISTRATIVE NOTE: LOCAL TITLE: ADMINISTRATIVE RECALL NOTE STANDARD TITLE: ADMINISTRATIVE NOTE DATE OF NOTE: DEC 21, 2023@13:07 ENTRY DATE: DEC 21, 2023@13:07:24 AUTHOR: MERLINE TORRES EXP COSIGNER: URGENCY: STATUS: COMPLETED ADMINISTRATIVE RECALL NOTE Has ADDENDA RTC orders: Unable to contact patient: Attempts to contact: 1st attempt: Left voicemail 2nd attempt: Letter mailedDisposition onFe 3rd attempt: 4th attempt: This is an attempt to reschedule cancel by patient appointment in Primary Care. PID 12/20/23 for Annual appointment. /taya/ MERLINE ALTAMIRANO Signed: 12/21/2023 13:08 01/05/2024 ADDENDUM STATUS: COMPLETED Attempts were made to reach to schedule a recall appointment. Removed from recall, per policy for failure to respond. /cedric ALTAMIRANO Signed: 01/05/2024 13:[address] [facility]
--- OUTSIDE RECORDS SUMMARY | 2024-11-08 10:45 | XMS_ITS | Continuity of Care Document ---
Author Name [facility] Organization [facility] Care Team Providers Care Cyber Security Name Role Phone [facility] Unavailable Unavailable Problems Combined list of problems from Department of [facility] and [facility] facilities. It does not include entries that were removed or entered in error. Problem Status Onset Date Problem Type Date of Resolution Comments Source GERD - Gastro-Esophage al Reflux Disease ([facility] [id number]) Active 1 Condition Oct 13, 2021 Entered By: RACHEL WELDON Comment: followed by VIANNEY HINDS Male infertility Active 0 Condition Jul 02, 2020 Entered By: RACHEL WELDON Comment: referred to urology [facility] Systemic mast cell disease Active 0 Condition Jul 02, 2020 Entered By: RACHEL WELDON Comment: [facility] Fracture of shaft of femur, open Active 4 Condition [place] Medications Combined list of outpatient medications from Department of Defense and [facility] facilities.Medications provided include 1) outpatient medications from the last 15 months, and 2) patient-reported medications. Medication Details Route Status Patient Instructions Prescription Expires Prescription Number Last Dispense Date Ordering Provider Order Date Order Qty Source FENTANYL 100MCG/HR PATCH APPLY 1 PATCH TO SKIN NEEDED TRANSD ERMAL ACTIVE SHIRAZ,HOW MEGHAN D 2019 [facility] [place] [facility] LORAZEPAM 2MG TAB TAKE TWO TABLETS BY MOUTH NEEDED ORAL ACTIVE SHIRAZHOW MEGHAN D 2019 [facility] [place] [facility] Allergies, Adverse Reactions, Alerts Combined list of allergies from Department of Defense and Veterans Affairs facilities. It does not include entries that were removed or entered in error. Substance Category Reaction Severity Reaction type Status Date Reported Comments Source ACETAMINOPHEN Drug allergy (disorder) Nausea and Vomiting active 3 [facility] ACETAMINOPHEN Propensity to adverse reactions to drug (finding) Nausea and vomiting active 3 [facility] ANTIPYRINE Drug allergy (disorder) Weakness present active 0 [facility] NONSTEROIDAL ANTI-INFLAMMA TORY Propensity to adverse reactions to drug (finding) Weakness present active 0 [facility] TRICYCLIC ANTIDEPRESSAN TS Propensity to adverse reactions to drug (finding) Weakness present active 0 [facility] Immunizations Combined list of available immunizations from the Department of Defense and Veterans Affairs facilities. Immunization Series Date Given Administered By Site Reaction Lot Number CVX Code Drug Bindery Machine Operator Status Comments Source TDAP 2014 115 complet ed [facility] [place] [facility] [facility] Results Combined list of recent chemistry, hematology and other laboratory results from Department of Defense and Veterans Affairs, ranging from 15 months to all on record, depending upon the facility. Order Name Results Value Reference Range Date Interpretation Specimen Comments Source GLUCOSE, Fingersti ck GLUCOSE [MASS/VOLU ME] IN BLOOD BY AUTOMATED TEST STRIP 108 mg/dL 65 - 100 11/29 H Specimen Type: BLOOD Comment: For GLU FinTest performed by: Jerzy Lopez For GLU Fin Meter #: [id number] Ordering Provider: ANTWON ORTEGA Report Released Date/Time: Dec 01, 2022 08:25 AM Reporting Lab: [facility] [place] [facility] [address] [facility] [id number] Performing Lab: [place] [facility] [place] [place] [facility] [address] [facility] [address] [place] [facility] [place] [facility] Encounters Combined list of: 1) Encounters from Department of Veterans Affairs facilities going back up to thelast 18 months. 2) Encounters from the Department of Defense facilities going back up to 280 months. Location Location Details Encounter Type Encounter Number Reason For Visit Attending Provider ADM Date DC Date Status Disposition Source [facility] [place] [facility] Outpatient Encounter [id number] 05/22 [place] [facility] [place] [place] [facility] [place] [facility] Outpatient Encounter [id number] 05/27 [facility] [place] Out[facility] Encounter [id number] 11/14 [facility] [place] Encounter [id number] 12/21 [facility] [place] Encounter [id number] 12/28 [facility] [place] Out[facility] Encounter [id number] AGAPITO TURCIOS 02/11 [facility] [place] Out[facility] Encounter [id number] 04/18 [facility] [place] Procedures Combined list of: 1) Procedures from Department of Veterans Affairs facilities going back up to thelast 18 months, not all [place] non-surgical procedures are included; 2) All procedures from the Department of Defense facilities. Procedure Procedure Type Code Date Perfomer Comments Sour e RADIOLOGIC EXAMINATION; NECK , SOFT TISSUE 10/05/2001 [facility] DISSECTION, DEEP JUGULAR NODE(S) 10/01/2001 DoD PHYS/OTH QUALIFIED HEALTH TREE TRIMMING SUPERVISOR QUALIFIED,EDUCATION,TRAIN,LIC ENSURE/REGULATION (WHEN APPLICABLE) EDUC SER RENDERED TO PATS IN A GRP SETTING (EG,,OBESITY,OR DIABETIC INSTRUCT) 09/24/2001 DoD RADIOLOGIC EXAMINATION, COMPLETE ACUTE ABDOMEN SERIES, INCLUDING 2 OR MORE VIEWS OF THE ABDOMEN (EG, SUPINE, ERECT, DECUBITUS), AND A SINGLE VIEW CHEST 09/02/2001 [facility] oD MUSCLE TESTING, MANUAL (SEPARATE PROCEDURE) WITH REPORT; EXTREMITY (EXCLUDING HAND) OR TRUNK 08/16/2001 [facility]D ORTHOTIC(S) FITTING AND TRAINING, UPPER EXTREMITY(IES), LOWER EXTREMITY(IES), AND/OR TRUNK, EACH 15 MINUTES 08/02/2001 [facility] MUSCLE TESTING, MANUAL (SEPARATE PROCEDURE) WITH REPORT; EXTREMITY (EXCLUDING HAND) OR TRUNK 08/01/2001 DoD EDUCATIONAL SUPPLIES, SUCH A S BOOKS, TAPES, AND PAMPHLETS, FOR THE PATIENT'S EDUCATION AT COST TO PHYSICIAN OR OTHER QUALIFIED HEALTH TREE TRIMMING SUPERVISOR 05/17/2002 DoD EDUCATIONAL SUPPLIES, SUCH A S BOOKS, TAPES, AND PAMPHLETS, FOR THE PATIENT'S EDUCATION AT COST TO PHYSICIAN OR OTHER QUALIFIED HEALTH TREE TRIMMING SUPERVISOR 05/16/2002 DoD EDUCATIONAL SUPPLIES, SUCH A S BOOKS, TAPES, AND PAMPHLETS, FOR THE PATIENT'S EDUCATION AT COST TO PHYSICIAN OR OTHER QUALIFIED HEALTH TREE TRIMMING SUPERVISOR 05/15/2002 DoD EDUCATIONAL SUPPLIES, SUCH A S BOOKS, TAPES, AND PAMPHLETS, FOR THE PATIENT'S EDUCATION AT COST TO PHYSICIAN OR OTHER QUALIFIED HEALTH TREE TRIMMING SUPERVISOR 05/14/2002 DoD EDUCATIONAL SUPPLIES, SUCH A S BOOKS, TAPES, AND PAMPHLETS, FOR THE PATIENT'S EDUCATION AT COST TO PHYSICIAN OR OTHER QUALIFIED HEALTH TREE TRIMMING SUPERVISOR 05/13/2002 DoD EDUCATIONAL SUPPLIES, SUCH A S BOOKS, TAPES, AND PAMPHLETS, FOR THE PATIENT'S EDUCATION AT COST TO PHYSICIAN OR OTHER QUALIFIED HEALTH TREE TRIMMING SUPERVISOR 05/12/2002 DoD EDUCATIONAL SUPPLIES, SUCH A S BOOKS, TAPES, AND PAMPHLETS, FOR THE PATIENT'S EDUCATION AT COST TO PHYSICIAN OR OTHER QUALIFIED HEALTH TREE TRIMMING SUPERVISOR 05/11/2002 DoD EDUCATIONAL SUPPLIES, SUCH A S BOOKS, TAPES, AND PAMPHLETS, FOR THE PATIENT'S EDUCATION AT COST TO PHYSICIAN OR OTHER QUALIFIED HEALTH TREE TRIMMING SUPERVISOR 05/10/2002 DoD PHARMACOLOGIC MANAGEMENT, INCLUDING PRESCRIPTION, USE, AND REVIEW OF MEDICATION WITH NO MORE THAN MINIMAL MEDICAL PSYCHOTHERAPY 05/09/2002 DoD EDUCATIONAL SUPPLIES, SUCH A S BOOKS, TAPES, AND PAMPHLETS, FOR THE PATIENT'S EDUCATION AT COST TO PHYSICIAN OR OTHER QUALIFIED HEALTH TREE TRIMMING SUPERVISOR 05/09/2002 DoD EDUCATIONAL SUPPLIES, SUCH A S BOOKS, TAPES, AND PAMPHLETS, FOR THE PATIENT'S EDUCATION AT COST TO PHYSICIAN OR OTHER QUALIFIED HEALTH TREE TRIMMING SUPERVISOR 05/08/2002 DoD PHYS/OTH QUALIFIED HEALTH TREE TRIMMING SUPERVISOR QUALIFIED,EDUCATION,TRAIN,LIC ENSURE/REGULATION (WHEN APPLICABLE) EDUC SER RENDERED TO PATS IN A GRP SETTING (EG,,OBESITY,OR DIABETIC INSTRUCT) 05/07/2002 DoD EDUCATIONAL SUPPLIES, SUCH A S BOOKS, TAPES, AND PAMPHLETS, FOR THE PATIENT'S EDUCATION AT COST TO PHYSICIAN OR OTHER QUALIFIED HEALTH TREE TRIMMING SUPERVISOR 05/07/2002 DoD PHARMACOLOGIC MANAGEMENT, INCLUDING PRESCRIPTION, USE, AND REVIEW OF MEDICATION WITH NO MORE THAN MINIMAL MEDICAL PSYCHOTHERAPY 05/06/2002 DoD EDUCATIONAL SUPPLIES, SUCH A S BOOKS, TAPES, AND PAMPHLETS, FOR THE PATIENT'S EDUCATION AT COST TO PHYSICIAN OR OTHER QUALIFIED HEALTH TREE TRIMMING SUPERVISOR 05/06/2002 DoD EDUCATIONAL SUPPLIES, SUCH A S BOOKS, TAPES, AND PAMPHLETS, FOR THE PATIENT'S EDUCATION AT COST TO PHYSICIAN OR OTHER QUALIFIED HEALTH TREE TRIMMING SUPERVISOR 05/05/2002 DoD EDUCATIONAL SUPPLIES, SUCH A S BOOKS, TAPES, AND PAMPHLETS, FOR THE PATIENT'S EDUCATION AT COST TO PHYSICIAN OR OTHER QUALIFIED HEALTH TREE TRIMMING SUPERVISOR 05/04/2002 DoD EDUCATIONAL SUPPLIES, SUCH A S BOOKS, TAPES, AND PAMPHLETS, FOR THE PATIENT'S EDUCATION AT COST TO PHYSICIAN OR OTHER QUALIFIED HEALTH TREE TRIMMING SUPERVISOR 05/03/2002 DoD EDUCATIONAL SUPPLIES, SUCH A S BOOKS, TAPES, AND PAMPHLETS, FOR THE PATIENT'S EDUCATION AT COST TO PHYSICIAN OR OTHER QUALIFIED HEALTH TREE TRIMMING SUPERVISOR 05/02/2002 DoD EDUCATIONAL SUPPLIES, SUCH A S BOOKS, TAPES, AND PAMPHLETS, FOR THE PATIENT'S EDUCATION AT COST TO PHYSICIAN OR OTHER QUALIFIED HEALTH TREE TRIMMING SUPERVISOR 05/01/2002 DoD EDUCATIONAL SUPPLIES, SUCH A S BOOKS, TAPES, AND PAMPHLETS, FOR THE PATIENT'S EDUCATION AT COST TO PHYSICIAN OR OTHER QUALIFIED HEALTH TREE TRIMMING SUPERVISOR 04/30/2002 DoD EDUCATIONAL SUPPLIES, SUCH A S BOOKS, TAPES, AND PAMPHLETS, FOR THE PATIENT'S EDUCATION AT COST TO PHYSICIAN OR OTHER QUALIFIED HEALTH TREE TRIMMING SUPERVISOR 04/29/2002 DoD EDUCATIONAL SUPPLIES, SUCH A S BOOKS, TAPES, AND PAMPHLETS, FOR THE PATIENT'S EDUCATION AT COST TO PHYSICIAN OR OTHER QUALIFIED HEALTH TREE TRIMMING SUPERVISOR 04/28/2002 DoD EDUCATIONAL SUPPLIES, SUCH A S BOOKS, TAPES, AND PAMPHLETS, FOR THE PATIENT'S EDUCATION AT COST TO PHYSICIAN OR OTHER QUALIFIED HEALTH TREE TRIMMING SUPERVISOR 04/27/2002 DoD PREPARATION OF REPORT OF PATIENT'S PSYCHIATRIC STATUS, HISTORY, TREATMENT, OR PROGRESS (OTHER THAN FOR LEGAL OR CONSULTATIVE PURPOSES) FOR OTHER INDIVIDUALS, AGENCIES, OR INSURANCE CARRIERS 04/26/2002 DoD Social History Combined list of available smoking, tobacco, and other social history from Department of Defense and Veterans Affairs facilities. Social History Type Response Date Comment Sourc e Tobacco smoking status NHIS [facility]-TOBACCO FORMER USER 11/29/2022 [facility] [place] [facility] History of tobacco use VA-TOBACCO QUIT 15 YRS OR MORE 11/29/2022 [facility] History of tobacco use [place]-TOBACCO QUIT 5 TO < 15 YRS 06/18/2020 [facility] History of tobacco use CURRENT SMOKER 05/16/2005 [place] History of tobacco use HISTORY OF SMOKING 02/10/2004 recently quit [place] This section is an empty social history section. [facility] Advance Directives List of completed, amended, or rescinded Advance Directives on record at Department of Veterans Affairs facilities. An actual copy of the Directive is not included. Date Advance Directive Provider Source 12/26/2022 ADVANCE DIRECTIVE MACIEL-SHANDA [facility]
--- OUTSIDE RECORDS SUMMARY | 2024-11-08 10:45 | XMS_ITS | Encounter Summary ---
Author Name [facility] [place] [facility] [place] Address [address] [place] [id number] Care Team Providers Care Director Non Profit Name Role Phone JOSH FELICIANO Primary Care Provider Unavailabl e Insurance Providers: [...] PART B Nov 27, 2008 PART B [id number] JOSSIE PANTOJA PATIENT MEDICARE (WNR) MEDICARE (M) PART A Apr 27, 2005 PART A [id number] JOSSIE PANTOJA PATIENT Selected Encounter This section includes the information on record at [place] for the Encounter. Date/Time Encounter Type Encounter Description Reason Pro vider Source Nov 14, 2023 11:18 AM Outpatient Encounter COMMUNITY CARE CONSULT IHE Encounter Template Text not used [...] 20 appointments. The data comes from all [place] treatment facilities. Appointment Date/Time Appointment Type Appointme nt Facility Name Dec 28, 2023 09:00 AM AMBULATORY - MEDICINE [facility] Social History: Smoking Status (Most current) and Tobacco Use (All prior to encounter date) This section includes the most current, and the historical, smoking and tobacco- related health factors from the [place] facility where the Encounter took place. Current Smoking Status This section includes the most current smoking, or tobacco-related health factor, from the [place] facility where the Encounter took place. Date/Time Current Smoking Status Comment Facil ity Nov 29, 2022 05:29 PM VA-TOBACCO FORMER USER [facility] Tobacco Use History This section includes a history of the smoking, or tobacco-related health factors, that were collected on or before the date of the Encounter. The data comes from the [place] facility where the Encounter took place. Date/Time Smoking Status/Tobacco Use Comment F acility Nov 29, 2022 05:29 PM VA-TOBACCO QUIT 15 YRS OR MORE [facility] Jun 18, 2020 01:22 PM VA-TOBACCO FORMER USER [facility] Jun 18, 2020 01:22 PM [place]-TOBACCO QUIT 5 TO < 15 YRS [facility] Advance Directives: All historical and current Section Date Range: From patient's date of to the date document was created. This section includes ALL of a patient's completed or amended [place] Advance and Rescinded Directives. The entries below indicate that a directive exists for the patient, but an actual copy is not included with this document. The data comes from all [place] facilities. Date Advance Directives Provider Source Dec 26, 2022 ADVANCE DIRECTIVE SHANDA MEDINA [facility] Encounter Notes: All associated encounter notes This section contains the clinical notes associated to the Encounter. Date/Time Encounter Note(s) Provider Source Nov 22, 2023 08:19 AM ADDENDUM: LOCAL TITLE: Addendum STANDARD TITLE: ADDENDUM DATE OF NOTE: NOV 22, 2023@08:19:58 ENTRY DATE: NOV 22, 2023@08:19:59 AUTHOR: ROSIBEL KIRBY EXP COSIGNER: URGENCY: STATUS: COMPLETED done. please sign if agree. thank you. /cedric Kirby RN, BSN Primary Care Signed: 11/22/2023 08:20 Receipt Acknowledged By: 11/22/2023 08:28 /taya/ Josh Feliciano MD Staff Physician --- Original Document --- 11/14/23 ADMINISTRATIVE NOTE: Received call from Warne reporting he is scheduled for follow up care with his [facility] on 12/28/23. His previous authorization is . Should PCP be in agreement a new community care Rheumatology consult would be needed. Alerting PACT for review /es/ RAVI MCKEON Signed: 11/14/2023 11:19 Receipt Acknowledged By: 11/22/2023 08:20 /cedric Kirby RN, BSN Primary Care 11/22/2023 ADDENDUM STATUS: COMPLETED Signed. /taya/ Josh Feliciano MD Staff Physician Signed: 11/22/2023 08:28 ROSIBEL KIRBY [place] [facility] [place] [facility] Nov 14, 2023 11:18 AM ADMINISTRATIVE NOT E: LOCAL TITLE: ADMINISTRATIVE NOTE STANDARD TITLE: ADMINISTRATIVE NOTE DATE OF NOTE: NOV 14, 2023@11:18 ENTRY DATE: NOV 14, 2023@11:18:26 AUTHOR: RAVI MCKEON EXP COSIGNER: URGENCY: STATUS: COMPLETED ADMINISTRATIVE NOTE Has ADDENDA Received call from Warne reporting he is scheduled for follow up care with his [facility] on 12/28/23. His previous authorization is . Should PCP be in agreement a new community care Rheumatology consult would be needed. Alerting PACT for review /es/ RAVI MCKEON Signed: 11/14/2023 11:19 Receipt Acknowledged By: 11/22/2023 08:20 /taya/ Rosibel Kirby RN, BSN Primary Care 11/22/2023 ADDENDUM STATUS: COMPLETED done. please sign if agree. thank you. /taya/ Rosibel Kirby RN, BSN Primary Care Signed: 11/22/2023 08:20 Receipt Acknowledged By: 11/22/2023 08:28 /taya/ Josh Feliciano MD Staff Physician 11/22/2023 ADDENDUM STATUS: COMPLETED Signed. /taya/ Josh Feliciano MD Staff Physician Signed: 11/22/2023 08:28 RAVI MCKEON [facility]
--- OUTSIDE RECORDS SUMMARY | 2024-11-08 10:45 | XMS_ITS ---
Author Name [facility] [facility] [place] [facility] [place] Address [address] [place] [address] Care Team Providers Care Police Department Secretary Name Role Phone RACHEL WELDON Primary Care [...] PART B Nov 27, 2008 PART B [id number] JOSSIE PANTOJA PATIENT MEDICARE (WNR) MEDICARE (M) PART A Apr 27, 2005 PART A [id number] JOSSIE PANTOJA PATIENT Selected Encounter This section includes the information on record at [place] for the Encounter. Date/Time Encounter Type Encounter Description Reason Provider Source Feb 12, 2024 10:23 AM Outpatient Encounter PRIMARY CARE/MEDICINE [facility] TURCIOS Alysia Encounter Template Text not used by [place] Social History: Smoking Status (Most current) and Tobacco Use (All prior to encounter date) This section includes the most current, and the historical, smoking and tobacco- related health factors from the [place] facility where the Encounter took place. Current Smoking Status This section includes the most current smoking, or tobacco-related health factor, from the [place] facility where the Encounter took place. Date/Time Current Smoking Status Comment Quita ity Nov 29, 2022 05:29 PM VA-TOBACCO FORMER USER [facility] Tobacco Use History This section includes a history of the smoking, or tobacco-related health factors, that were collected on or before the date of the Encounter. The data comes from the [place] facility where the Encounter took place. Date/Time Smoking Status/Tobacco Use Comment F acility Nov 29, 2022 05:29 PM [facility]CO [facility] Jun 18, 2020 01:22 PM [facility] Jun 18, 2020 01:22 PM [place]-TOBACCO QUIT 5 TO < 15 YRS [facility] Advance Directives: All historical and current Section Date Range: From patient's date of to the date document was created. This section includes ALL of a patient's completed or amended [place] Advance and Rescinded Directives. The entries below indicate that a directive exists for the patient, but an actual copy is not included with this document. The data comes from all [place] facilities. Date Advance Directives Provider Source Dec 26, 2022 ADVANCE DIRECTIVE MACIELMarijaSHANDA [facility] Encounter Notes: All associated encounter notes This section contains the clinical notes associated to the Encounter. Date/Time Encounter Note(s) Provider Source Feb 12, 2024 10:23 AM PRIMARY CARE [employer] MESSAGING: LOCAL TITLE: PRIMARY CARE SECURE MESSAGING STANDARD TITLE: PRIMARY CARE SECURE MESSAGING DATE OF NOTE: FEB 12, 2024@10:23 ENTRY DATE: FEB 12, 2024@11:23:07 AUTHOR: CONSTANCE TURCIOS EXP COSIGNER: URGENCY: STATUS: COMPLETED ------Original Message -------- Sent: 02/12/2024 11:21 AM ET From: CONSTANCE TURCIOS To: JOSSIE PANTOJA Subject: General:General Inquiry Please let us know if you have had the FLU,COVID< or RSV vaccines outside the [facility] this flu season. Please provide dates and locations along with vaccines, . Please let us know if you do not wish to receive any of these vaccines as well. Thank you for your service /es/ CONSTANCE TURCIOS LPN Signed: 02/12/2024 11:23 CONSTANCE TURCIOS [place] [facility]
--- OUTSIDE RECORDS SUMMARY | 2024-11-08 10:46 | XMS_ITS | Encounter Summary ---
Author Name [facility] [place] [facility] [place] Address [address] [place] [id number] Care Team Providers Care Budget Engineer Name Role Phone RACHEL WELDON Primary Care [...] PART B Nov 27, 2008 PART B [id number] JOSSIE PANTOJA PATIENT MEDICARE (WNR) MEDICARE (M) PART A Apr 27, 2005 PART A [id number] [id number] JOSSIE PANTOJA PATIENT Selected Encounter This section includes the information on record at [place] for the Encounter. Date/Time Encounter Type Encounter Description Reason Pro vider Source Dec 28, 2023 12:00 PM Outpatient Encounter COMMUNITY CARE CONSULT IHE Encounter Template Text not used by [facility] Social History: Smoking Status (Most current) and Tobacco Use (All prior to encounter date) This section includes the most current, and the historical, smoking and tobacco- related health factors from the [place] facility where the Encounter took place. Current Smoking Status This section includes the most current smoking, or tobacco-related health factor, from the [place] facility where the Encounter took place. Date/Time Current Smoking Status Comment Quita ity Nov 29, 2022 05:29 PM VA-TOBACCO FORMER USER [facility] Tobacco Use History This section includes a history of the smoking, or tobacco-related health factors, that were collected on or before the date of the Encounter. The data comes from the [place] facility where the Encounter took place. Date/Time Smoking Status/Tobacco Use Comment F acility Nov 29, 2022 05:29 PM [facility]BACCO [facility] Jun 18, 2020 01:22 PM [facility] Jun 18, 2020 01:22 PM [place]-TOBAC[place] QUIT 5 TO < 15 YRS [facility] Advance Directives: All historical and current Section Date Range: From patient's date of to the date document was created. This section includes ALL of a patient's completed or amended [place] Advance and Rescinded Directives. The entries below indicate that a directive exists for the patient, but an actual copy is not included with this document. The data comes from all [place] facilities. Date Advance Directives Provider Source Dec 26, 2022 ADVANCE DIRECTIVE MACIELMarijaSHANDA [facility] Encounter Notes: All associated encounter notes This section contains the clinical notes associated to the Encounter. Date/Time Encounter Note(s) Provider Source Dec 28, 2023 12:00 PM NONVA CONSULT: LOCAL TITLE: COMMUNITY CARE-CONSULT RESULT NOTE STANDARD TITLE: NONVA CONSULT DATE OF NOTE: DEC 28, 2023@12:00 ENTRY DATE: APRIL 12, 2024@10:31:37 AUTHOR: COURTNEY KING EXP COSIGNER: URGENCY: STATUS: COMPLETED VistA Imaging - Scanned Document SCANNED DOCUMENT SIGNATURE NOT REQUIRED Electronically Filed: 04/12/2024 by: COURTNEY KING CLINICAL PROGRAM MANAGER COURTNEY KING [facility]
--- OUTSIDE RECORDS SUMMARY | 2024-11-08 10:46 | XMS_ITS ---
Author Name [facility] Address [address] [place] [id number] Care Team Providers Care Electron Gun Inspector Name Role Phone JOSH FELICIANO Primary Care [...] PART B Nov 27, 2008 PART B [id number] JOSSIE PANTOJA PATIENT MEDICARE (WNR) MEDICARE (M) PART A Apr 27, 2005 PART A [id number] JOSSIE PANTOJA PATIENT Selected Encounter This section includes the information on record at NE for the Encounter. Date/Time Encounter Type Encounter Description Reason Pro vider Source April 18, 2024 06:07 PM Outpatient Encounter PRIMARY CARE/MEDICINE IHE Encounter Template Text not used by NE Social History: Smoking Status (Most current) and Tobacco Use (All prior to encounter date) This section includes the most current, and the historical, smoking and tobacco- related health factors from the [place] facility where the Encounter took place. Current Smoking Status This section includes the most current smoking, or tobacco-related health factor, from the NE facility where the Encounter took place. Date/Time Current Smoking Status Comment Quita ity Nov 29, 2022 05:29 PM VA-TOBACCO FORMER USER [facility] Tobacco Use History This section includes a history of the smoking, or tobacco-related health factors, that were collected on or before the date of the Encounter. The data comes from the NE facility where the Encounter took place. Date/Time Smoking Status/Tobacco Use Comment F acility Nov 29, 2022 05:29 PM VA-TOBACCO QUIT 15 YRS OR MORE NE [facility] Jun 18, 2020 01:22 PM [facility] Jun 18, 2020 01:22 PM NE-TOBACCO QUIT 5 TO < 15 YRS [facility] Advance Directives: All historical and current Section Date Range: From patient's date of to the date document was created. This section includes ALL of a patient's completed or amended [place] Advance and Rescinded Directives. The entries below indicate that a directive exists for the patient, but an actual copy is not included with this document. The data comes from all [place] facilities. Date Advance Directives Provider Source Dec 26, 2022 ADVANCE DIRECTIVE JOSHSHANDA GREEN [facility] Encounter Notes: All associated encounter notes This section contains the clinical notes associated to the Encounter. Date/Time Encounter Note(s) Provider Source April 18, 2024 06:07 PM CLINICAL WARNING: LOCAL TITLE: COMMUNICATION AUTHORIZATION STANDARD TITLE: CLINICAL WARNING DATE OF NOTE: APRIL 18, 2024@18:07 ENTRY DATE: APRIL 18, 2024@18:07:29 AUTHOR: JOSH FELICIANO EXP COSIGNER: URGENCY: STATUS: COMPLETED Family/Caregiver Name: Primary: Aliya Pantoja Secondary: Tertiary: Authorized Clinic & Topics: All Clinic's & Topics: All Care/Coordination, Scheduling Appointments, Prescriptions, Test Results, Other: Primary Care: Mental Health: Specialty Care: [id number] Protected Info: [ ] Drug Abuse [ ] Alcohol Abuse [ ] HIV [ ] Sickle Cell Expiration: Date: [ ] At [X] Through [ ] At end of care /es/ Josh Feliciano MD Staff Physician Signed: 04/18/2024 18:09 JOSH FELICIANO [facility]
[2024-11-08 10:52] VITALS: BP 104/68; PULSE 96; TEMP 36.3; O2SAT 98; BMI 21.6
== END 2024-11-08 11:29 | disposition home or self-care (01) ==
PROVIDERS: PCP Family Medicine; Visit Provider Family Medicine
DX: G89.29 Other chronic pain (principal); B34.9 Viral infection, unspecified; J32.9 Chronic sinusitis, unspecified; R41.840 Attention and concentration deficit

== ENCOUNTER → 2024-11-08 10:30 | Outpatient (BNVA) | payer MEDICARE, SELFPAY | PROVIDERS: PCP Family Medicine; Visit Provider Family Medicine | DX: G89.29 Other chronic pain (principal); B34.9 Viral infection, unspecified; J32.9 Chronic sinusitis, unspecified; R41.840 Attention and concentration deficit; Z79.891 Long term (current) use of opiate analgesic | CPT/HCPCS: 96127; 99212 ==

== ENCOUNTER 2025-01-09 08:46 | Outpatient (REF) | payer MEDICARE, SELFPAY ==
--- OUTSIDE RECORDS SUMMARY | 2025-01-10 09:02 | XMS_ITS | Continuity of Care Document ---
Author Name [facility] Organization [facility] Care Team Providers Care Statistical Machine Servicer Name Role Phone [facility] Unavailable Unavailable Problems Combined list of problems from Department of [facility] and [facility] facilities. It does not include entries that were removed or entered in error. Problem Status Onset Date Problem Type Date of Resolution Comments Source GERD - Gastro-Esophage al Reflux Disease ([facility] [id number]) Active 1 Condition Oct 13, 2021 Entered By: RACHEL WELDON Comment: followed by VIANNEY HINDS Male infertility Active 0 Condition Jul 02, 2020 Entered By: RACHEL WELDON Comment: referred to urology [facility] Systemic mast cell disease Active 0 Condition Jul 02, 2020 Entered By: RACHEL WELDON Comment: [facility] Fracture of shaft of femur, open Active 4 Condition [facility] Medications Combined list of outpatient medications from [facility] of [facility] and [facility] facilities.Medications provided include 1) outpatient medications from the last 15 months, and 2) patient-reported medications. Medication Details Route Status Patient Instructions Prescription Expires Prescription Number Last Dispense Date Ordering Provider Order Date Order Qty Source FENTANYL 100MCG/HR PATCH APPLY 1 PATCH TO SKIN NEEDED TRANSD ERMAL ACTIVE SHIRAZ,HOW [facility] [place] [facility] LORAZEPAM 2MG TAB TAKE TWO TABLETS BY MOUTH NEEDED ORAL ACTIVE SHIRAZHOW MEGHAN D 2019 [facility] [place] [facility] Allergies, Adverse Reactions, Alerts Combined list of allergies from Department of Defense and Veterans Affairs facilities. It does not include entries that were removed or entered in error. Substance Category Reaction Severity Reaction type Status Date Reported Comments Source ACETAMINOPHEN Drug allergy (disorder) Nausea and Vomiting active 3 [facility] on [facility] ACETAMINOPHEN Propensity to adverse reactions to drug (finding) Nausea and vomiting active 3 [facility] [place] [facility] ANTIPYRINE Drug allergy (disorder) Weakness present active 0 [facility] NONSTEROIDAL ANTI-INFLAMMA TORY Propensity to adverse reactions to drug (finding) Weakness present active 0 [facility] [place] [facility] TRICYCLIC ANTIDEPRESSAN TS Propensity to adverse reactions to drug (finding) Weakness present [facility] [place] [facility] Immunizations Combined list of available immunizations from the Department of Defense and Veterans Affairs facilities. Immunization Series Date Given Administered By Site Reaction Lot Number CVX Code Drug Land Developer Status Comments Source TDAP 2014 115 complet ed [place] [facility] [place] [facility] Results Combined list of recent chemistry, hematology [...] Jerzy Lopez For GLU Fin Meter #: [id number] Ordering Provider: ANTWON ORTEGA Report Released Date/Time: Dec 01, 2022 08:25 AM Reporting Lab: [facility] [place] [facility] [address] [facility] [id number] Performing Lab: [facility] [address] [facility] [address] [facility] [place] [facility] Encounters Combined list of: 1) Encounters from Department of Veterans Affairs facilities going backup to the last 18 months, not all [place] inpatient encounters are included; 2) Encounters from the Department of Defense facilities going backup to 280 months. Location Location Details Encounter Type Encounter Number Reason For Visit Attending Provider ADM Date DC Date Status Disposition Source [place] [facility] [place] [facility] Outpatient Encounter [id number] 05/22 [place] [facility] [place] [facility] [place] [facility] Outpatient Encounter [id number] 05[facility]27 [facility] [place] [facility] En[facility] [id number] 11/14 [facility] [place] [facility] En[facility] [id number] 12/21 [facility] [place] [facility] [facility] En[facility] [id number] 12/28 [facility] [place] [facility] [facility] Encounter [id number] AGAPITO TURCIOS ISTOPHER [place] 02/11 [facility] [place] Encounter [id number] 04/18 [facility] [place] [facility] Procedures Combined list of: 1) Procedures from Department of Veterans Affairs facilities going back up to thelast 18 months, not all [place] non-surgical procedures are included; 2) All procedures from the Department of Defense facilities. Procedure Procedure Type Code Date Perfomer Comments Sourc e RADIOLOGIC EXAMINATION; NECK , SOFT TISSUE 10/05/2001 [facility] DISSECTION, DEEP JUGULAR NODE(S) 10/01/2001 [facility] PHYS/OTH QUALIFIED HEALTH GELATIN POWDER MIXER QUALIFIED,EDUCATION,TRAIN,LIC ENSURE/REGULATION (WHEN APPLICABLE) EDUC SER RENDERED [...] COST TO PHYSICIAN OR OTHER QUALIFIED HEALTH GELATIN POWDER MIXER 05/17/2002 [facility] EDUCATIONAL SUPPLIES, SUCH A S BOOKS, TAPES, AND PAMPHLETS, FOR THE PATIENT'S EDUCATION AT COST TO PHYSICIAN OR OTHER QUALIFIED HEALTH GELATIN POWDER MIXER 05/16/2002 [facility]D EDUCATIONAL SUPPLIES, SUCH A S BOOKS, TAPES, AND PAMPHLETS, FOR THE PATIENT'S EDUCATION AT COST TO PHYSICIAN OR OTHER QUALIFIED HEALTH GELATIN POWDER MIXER 05/15/2002 DoD EDUCATIONAL SUPPLIES, SUCH A S BOOKS, TAPES, AND PAMPHLETS, FOR THE PATIENT'S EDUCATION AT COST TO PHYSICIAN OR OTHER QUALIFIED HEALTH GELATIN POWDER MIXER 05/14/2002 DoD EDUCATIONAL SUPPLIES, SUCH A S BOOKS, TAPES, AND PAMPHLETS, FOR THE PATIENT'S EDUCATION AT COST TO PHYSICIAN OR OTHER QUALIFIED HEALTH GELATIN POWDER MIXER 05/13/2002 [facility]D EDUCATIONAL SUPPLIES, SUCH A S BOOKS, TAPES, AND PAMPHLETS, FOR THE PATIENT'S EDUCATION AT COST TO PHYSICIAN OR OTHER QUALIFIED HEALTH GELATIN POWDER MIXER 05/12/2002 DoD EDUCATIONAL SUPPLIES, SUCH A S BOOKS, TAPES, AND PAMPHLETS, FOR THE PATIENT'S EDUCATION AT COST TO PHYSICIAN OR OTHER QUALIFIED HEALTH GELATIN POWDER MIXER 05/11/2002 DoD EDUCATIONAL SUPPLIES, SUCH A S BOOKS, TAPES, AND PAMPHLETS, FOR THE PATIENT'S EDUCATION AT COST TO PHYSICIAN OR OTHER QUALIFIED HEALTH GELATIN POWDER MIXER 05/10/2002 [facility] PHARMACOLOGIC MANAGEMENT, INCLUDING PRESCRIPTION, USE, AND REVIEW OF MEDICATION WITH NO MORE THAN MINIMAL MEDICAL PSYCHOTHERAPY 05/09/2002 [facility] EDUCATIONAL SUPPLIES, SUCH A S BOOKS, TAPES, AND PAMPHLETS, FOR THE PATIENT'S EDUCATION AT COST TO PHYSICIAN OR OTHER QUALIFIED HEALTH GELATIN POWDER MIXER 05/09/2002 DoD EDUCATIONAL SUPPLIES, SUCH A S BOOKS, TAPES, AND PAMPHLETS, FOR THE PATIENT'S EDUCATION AT COST TO PHYSICIAN OR OTHER QUALIFIED HEALTH GELATIN POWDER MIXER 05/08/2002 [facility] PHYS/OTH QUALIFIED HEALTH GELATIN POWDER MIXER QUALIFIED,EDUCATION,TRAIN,LIC ENSURE/REGULATION (WHEN APPLICABLE) EDUC SER RENDERED TO PATS IN A GRP SETTING (EG,,OBESITY,OR DIABETIC INSTRUCT) 05/07/2002 [facility] EDUCATIONAL SUPPLIES, SUCH A S BOOKS, TAPES, AND PAMPHLETS, FOR THE PATIENT'S EDUCATION AT COST TO PHYSICIAN OR OTHER QUALIFIED HEALTH GELATIN POWDER MIXER 05/07/2002 DoD PHARMACOLOGIC MANAGEMENT, INCLUDING PRESCRIPTION, USE, AND REVIEW OF MEDICATION WITH NO MORE THAN MINIMAL MEDICAL PSYCHOTHERAPY 05/06/2002 DoD EDUCATIONAL SUPPLIES, SUCH A S BOOKS, TAPES, AND PAMPHLETS, FOR THE PATIENT'S EDUCATION AT COST TO PHYSICIAN OR OTHER QUALIFIED HEALTH GELATIN POWDER MIXER 05/06/2002 DoD EDUCATIONAL SUPPLIES, SUCH A S BOOKS, TAPES, AND PAMPHLETS, FOR THE PATIENT'S EDUCATION AT COST TO PHYSICIAN OR OTHER QUALIFIED HEALTH GELATIN POWDER MIXER 05/05/2002 DoD EDUCATIONAL SUPPLIES, SUCH A S BOOKS, TAPES, AND PAMPHLETS, FOR THE PATIENT'S EDUCATION AT COST TO PHYSICIAN OR OTHER QUALIFIED HEALTH GELATIN POWDER MIXER 05/04/2002 DoD EDUCATIONAL SUPPLIES, SUCH A S BOOKS, TAPES, AND PAMPHLETS, FOR THE PATIENT'S EDUCATION AT COST TO PHYSICIAN OR OTHER QUALIFIED HEALTH GELATIN POWDER MIXER 05/03/2002 DoD EDUCATIONAL SUPPLIES, SUCH A S BOOKS, TAPES, AND PAMPHLETS, FOR THE PATIENT'S EDUCATION AT COST TO PHYSICIAN OR OTHER QUALIFIED HEALTH GELATIN POWDER MIXER 05/02/2002 DoD EDUCATIONAL SUPPLIES, SUCH A S BOOKS, TAPES, AND PAMPHLETS, FOR THE PATIENT'S EDUCATION AT COST TO PHYSICIAN OR OTHER QUALIFIED HEALTH GELATIN POWDER MIXER 05/01/2002 DoD EDUCATIONAL SUPPLIES, SUCH A S BOOKS, TAPES, AND PAMPHLETS, FOR THE PATIENT'S EDUCATION AT COST TO PHYSICIAN OR OTHER QUALIFIED HEALTH GELATIN POWDER MIXER 04/30/2002 DoD EDUCATIONAL SUPPLIES, SUCH A S BOOKS, TAPES, AND PAMPHLETS, FOR THE PATIENT'S EDUCATION AT COST TO PHYSICIAN OR OTHER QUALIFIED HEALTH GELATIN POWDER MIXER 04/29/2002 DoD EDUCATIONAL SUPPLIES, SUCH A S BOOKS, TAPES, AND PAMPHLETS, FOR THE PATIENT'S EDUCATION AT COST TO PHYSICIAN OR OTHER QUALIFIED HEALTH GELATIN POWDER MIXER 04/28/2002 DoD EDUCATIONAL SUPPLIES, SUCH A S BOOKS, TAPES, AND PAMPHLETS, FOR THE PATIENT'S EDUCATION AT COST TO PHYSICIAN OR OTHER QUALIFIED HEALTH GELATIN POWDER MIXER 04/27/2002 DoD PREPARATION OF REPORT OF PATIENT'S [...] smoking status NHIS VA-TOBACCO FORMER USER 11/29/2022 [facility] [place] [facility] History of tobacco use NM-TOBACCO QUIT 15 YRS OR MORE 11/29/2022 [facility] History of tobacco use NM-TOBACCO QUIT 5 TO < 15 YRS 06/18/2020 [facility] History of tobacco use CURRENT SMOKER 05/16/2005 [place] History of tobacco use HISTORY OF SMOKING 02/10/2004 recently quit [facility] This section is an empty social history section. [facility] Advance Directives List of completed, amended, or rescinded Advance Directives on record at Department of Veterans Affairs facilities. An actual copy of the Directive is not included. Date Advance Directive Provider Source 12/26/2022 ADVANCE DIRECTIVE MACIEL-SHANDA GREEN [facility]
== END 2025-01-09 08:47 | disposition home or self-care (01) ==
LOC: HO.HOSX 08:46
PROVIDERS: Visit Provider Orthopaedic Surgery
DX: Z13.89 Encounter for screening for other disorder (principal)

== ENCOUNTER 2025-02-06 10:37 | Outpatient (REF) | payer MEDICARE, SELFPAY | END 2025-02-06 10:38 | disposition home or self-care (01) | LOC: HO.LAB 10:37 | PROVIDERS: PCP Family Medicine; Visit Provider Family Medicine | DX: G89.29 Other chronic pain (principal); B34.9 Viral infection, unspecified; H65.92 Unspecified nonsuppurative otitis media, left ear; Z79.891 Long term (current) use of opiate analgesic | CPT/HCPCS: 99212 ==

== ENCOUNTER 2025-02-06 10:37 | Outpatient (AMB) | payer MEDICARE, SELFPAY ==
--- NOTE | 2025-02-06 10:44 | A.OFFPC_ITS ---
Vital Signs 02/06/25 10:51 Height 5 ft 10 in Weight 156 lb 4 oz BMI 22.4 BP 120/78 Blood Pressure Location Rt brachial Position Sitting Respiration 14 Pulse 93 Pulse Source Pulse Oximeter Temp 97.8 F Temp Source Oral Pulse Oximetry (%) 96 Oxygen Delivery Method Room Air Intake Visit Reasons: f/u chronic pain, chronic conditions Intake Note: patient is schedule to go over chronic pain and pain management. Manager Statistics Required: No Allergies amitriptyline [From Elavil] Allergy (Severe, Verified 02/06/25 10:48) Palpitations nortriptyline [Pamelor] Allergy (Severe, Verified 02/06/25 10:48) Blurred vision Milk Containing Products (Dairy) [Milk Containing Products] Allergy (Intermediate, Verified 02/06/25 10:48) stomach upset azithromycin [AZITHROMYCIN] Adverse Reaction (Severe, Verified 02/06/25 10:48) DIARRHEA, stomach pain,vomiting clonidine Adverse Reaction (Severe, Verified 02/06/25 10:48) Opposite reaction high blood pressure. duloxetine [From CYMBALTA] Adverse Reaction (Severe, Verified 02/06/25 10:48) undesired effect ibuprofen [IBUPROFEN] Adverse Reaction (Severe, Verified 02/06/25 10:48) STOMACH UPSET, vomiting meloxicam Adverse Reaction (Severe, Verified 02/06/25 10:48) stomach upset acetaminophen [From TYLENOL] Adverse Reaction (Intermediate, Verified 02/06/25 10:48) STOMACH UPSET aspirin Adverse Reaction (Intermediate, Verified 02/06/25 10:48) vomiting bupropion [From Wellbutrin] Adverse Reaction (Intermediate, Verified 02/06/25 10:48) dizziness NSAIDS (Non-Steroidal Anti-Inflamma [NSAIDS (NON-STEROIDAL ANTI-INFLAMMA] Adverse Reaction (Intermediate, Verified 02/06/25 10:48) STOMACH UPSET topiramate [Topamax] Adverse Reaction (Intermediate, Verified 02/06/25 10:48) unable to tolerate tramadol [Ultram] Adverse Reaction (Intermediate, Verified 02/06/25 10:48) Unable to tolerate morphine Adverse Reaction (Uncoded 11/08/24 10:45) flushed Medication List - Last Reconciled 02/06/25 by Alex Heart MD albuterol sulfate 90 mcg/actuation (Ventolin HFA) 2 puffs inhalation Q4-6H PRN 30 days cholecalciferol (vitamin D3) 1,250 mcg PO QWEEK 28 days cromolyn (Gastrocrom) 300 mg PO QID famotidine (Pepcid AC) 20 mg PO TID 3 months fentanyl 50 mcg/hr 1 patch transdermal Q48H 28 days folic acid 0.4 mg PO DAILY 30 days guanfacine ER 1 mg PO DAILY 30 days hydromorphone 2 mg (1/2 x 4 mg) PO Q8H PRN 28 days hydromorphone (Dilaudid) 2 mg PO Q8H PRN 30 days hydroxyzine HCl 25 mg PO QID PRN [Ketotifen 1 mg PO 2XD] lorazepam 1 mg PO TID-QID 28 days meclizine 25 mg PO Q8H PRN miscellaneous medical supply iv hydration as directed for 1 ltr of fluid up to 8 times per month for inability to maintain adequate fluid intake with condition miscellaneous medical supply 1 liter of saline as directed twice a week; naloxone 4 mg/actuation (Narcan) 4 mg intranasal Q2M PRN ondansetron 8 mg PO Q8H PRN 1 month sucralfate (Carafate) 1 g PO BID PRN ubrogepant 100 mg PO DAILY PRN Tobacco use date assessed: 05/15/24 Dental Screening Dental Screen Date: 01/11/24 HPI f/u chronic pain, chronic conditions HPI Details 44 y/o male presents to f/u chronic pain . Had switched him from 30 mg of morphine to Dilaudid 2 mg b.i.d. and seems be tolerating this fairly well. Fentanyl as prescribed He notes ? viral illness. Has complaints of headaches, ear discomfort. Mild feverishness Cough PFSH Medical History Elevated plasma metanephrines Anxiety Mast cell activation syndrome History of femur fracture Surgical History Deficient knowledge of leg surgery History of adenoidectomy Family History Father Heart disease Mother No problems noted. Paternal Grandfather Heart disease Maternal Grandfather Lung cancer Paternal Uncle Neurofibroma Mother Diabetes Maternal Grandmother Diabetes Heart attack Brother Thyroid disease Hx of cholecystectomy Sister Thyroid disease Social History Household Members: Spouse and Children Housing: House Alcohol intake: never Patient Tobacco Use Status: Never used Tobacco Tobacco use type: Cigarette Years Smoked: 5 e-Cigarette/Vaping Use: Never Used Second Hand Smoke Exposure: No Substance Use Type: Marijuana Advance Directives Date on File: 08/02/22 service: Yes ([employer]) Current occupational status: disabled Cognitive needs: No Hearing needs: No Vision needs: No Questionnaire PHQ-9 Over the last 2 weeks, how often have you been bothered by any of the following problems? 1. Little interest or pleasure in doing things: several days 3. Trouble falling or staying asleep, or sleeping too much: several days 4. Feeling tired or having little energy: not at all 5. Poor appetite or overeating: several days 6. Feeling bad about yourself - or that you are a failure or have let yourself or your family down: several days 7. Trouble concentrating on things, such as reading the newspaper or watching television: several days 8. Moving or speaking so slowly that other people could have noticed. Or the opposite - being so fidgety or restless that you have been moving around a lot more than usual: several days 9. Thoughts that you would be better off or of hurting yourself in some way: not at all Source: Developed by Drs. Nelson López, Mindi Jackson, Siva Carbajal and colleagues, with an educational debbie from [employer]. Thrive Questionnaire Date Thrive assessed: 11/09/23 I am a: Patient What is your living situation today?: I have a steady place to live Within the past 12 months, did the food you bought not last and you didn't have the money to get more?: Never true Within the past 12 months, did you worry whether your food would run out before you got money to buy more?: Never true Do you have trouble paying for medicines?: No Do you have trouble getting transportation to medical appointments?: No Do you have trouble paying your heating and electricity bill?: No Do you have trouble taking care of your child, family member or friend?: No Do you have trouble with day-to-day activities such as bathing, preparing meals, shopping, managing finances, etc.?: Yes Are you currently unemployed and looking for a job?: Yes Are you interested in more education?: No Please select the resources that you would like help with: None Currently or been in a relationship where the following occur: No concerns reported THRIVE Score: 0 AUDIT C Alcohol Use Questionnaire (AUDIT-C) 1. How often do you have a drink containing alcohol?: Never Total Score: 0 RICK-7 AMB Questionnaire RICK-7 Date RICK - 7 assessed: 11/09/23 Feeling nervous, anxious, or on edge: 1 = Several days Not being able to stop or control worryin = Not at all Worrying too much about different things: 0 = Not at all Trouble relaxin = Several days Being so restless that it is hard to sit still: 1 = Several days Becoming easily annoyed or irritable: 1 = Several days Feeling afraid as if something awful might happen: 1 = Several days Total RICK-7 score (0-4 normal; 5-9 mild; 10-14 moderate; 15-21 severe): 5 Source: Developed by Drs. Nelson López, Mindi Jackson, Siva Carbajal and colleagues, with an educational debbie from [employer]. Review of Systems Const Denies chills, Denies fatigue, Denies fever(s), Denies headache(s) and Denies weakness ENT Denies dizziness and Denies headache(s) Card Denies dyspnea Resp Denies cough, Denies dyspnea, Denies wheezing and Denies other (shortness of breath) Musc Denies numbness and Denies tingling Neuro Denies dizziness, Denies headache(s), Denies numbness, Denies tingling and Denies weakness Psych Denies anxiety and Denies depression Endo Denies fatigue Aller/Immun Denies wheezing Physical exam (Primary Care) Vital Signs: Last Vital Signs Temp 97.8 F 02/06/25 10:51 Pulse 93 02/06/25 10:51 Resp 14 02/06/25 10:51 BP 120/78 02/06/25 10:51 Pulse Ox 96 02/06/25 10:51 Oxygen Delivery Method Room Air 02/06/25 10:51 BMI result Body Mass Index 22.4 Tobacco/Smoking Status: Tobacco use Status Tobacco use date assessed 05/15/24 02/06/25 10:45 Patient Tobacco Use Status Never used Tobacco 02/06/25 10:45 Tobacco use type Cigarette 02/06/25 10:45 e-Cigarette/Vaping Use Never Used 02/06/25 10:45 Thrive Assessment: Date of Thrive Assessment Date Thrive assessed 11/09/23 02/06/25 10:45 Currently or been in a relationship where the following occur: No concerns reported Const General: well developed; No acute distress Nutritional Appearance: well nourished Orientation/consciousness: patient oriented x3 HENMT Head: Yes normocephalic and Yes atraumatic Eyes General: appearance normal, both eyes and all related structures Pupils: Equal, round and reactive pupils present EOM: EOMs intact bilaterally Resp Effort & Inspection: normal respiratory effort Auscultation: clear to auscultation bilaterally Cardio Rate: regular rate Rhythm: regular rhythm Heart sounds: S1 normal heart sound present, S2 normal heart sound present, no gallops, no murmurs and no rubs Neuro General: patient oriented x3 and gait normal Cranial nerves: Yes Equal, round and reactive pupils present Psych Affect: normal affect Coding Level of Care Code Est Pt Level 4 (81929) Diagnoses Chronic pain G89.29 Viral illness B34.9 Left serous otitis media H65.92 Assessment & Plan Assessment & Plan (1) Chronic pain: Code(s): G89.29 - Other chronic pain Category: Medical Plan: Ongoing?chronic?pain?which?is?controlled?on?current?regimen?of?fentanyl?and?hydr omorphone. Continue?current?medications Check?labs (2) Viral illness: Code(s): B34.9 - Viral infection, unspecified Category: Medical Plan: Likely?viral?illness?but?patient?also?has?left?maxillary?sinus?tenderness?with serous?otitis?on?left. Concern?for?sinus?infection. Will?send?a?s cript?for?doxycycline.??Patient?has?listed?sensitivity?to?this?but?says?that?he? tolerates?it?well. (3) Left serous otitis media: Code(s): H65.92 - Unspecified nonsuppurative otitis media, left ear Category: Medical Plan: Likely?secondary?to maxillary?sinusitis Treating?as?above Orders: Orders Comprehensive Met. Panel Today G89.29 - Other chronic pain UA and rflx microscopic Today G89.29 - Other chronic pain, Z00.00 - Encounter for general adult medical examination without abnormal findings TSH reflex Free T4 Today G89. - Other chronic pain, Z00.00 - Encounter for general adult medical examination without abnormal findings Opiates GCMS Expanded, Ur Today F11.90 - Opioid use, unspecified, uncomplicated Drug Screen Urine Today F11.90 - Opioid use, unspecified, uncomplicated Complete Blood Count Auto Diff Today G89.29 - Other chronic pain, Z00.00 - Encounter for general adult medical examination without abnormal findings SARS-CoV2/FLU/RSV Today B34.9 - Viral infection, unspecified, Z20.822 - Contact with and (suspected) exposure to COVID-19 Medications: New doxycycline hyclate 100 mg PO BID 10 days 20 tabs 0RF Refilled hydromorphone Partial Fill upon patient request. 2 mg (1/2 x 4 mg) PO Q8H 28 days PRN 42 tabs 0RF pain J32.9 - Chronic sinusitis, unspecified Discontinued hydromorphone (Dilaudid) MassPat Verified. Partial Fill upon patient request. Discontinued Reason: Duplicate 2 mg PO Q8H 30 days PRN 90 tabs 0RF pain D89.40 - Mast cell activation, unspecified
[2025-02-06 10:51] VITALS: BP 120/78; PULSE 93; RESP 14; TEMP 36.6; O2SAT 96; BMI 22.4
--- OUTSIDE RECORDS SUMMARY | 2025-02-06 13:28 | XMS_ITS | Continuity of Care Document ---
Author Name [facility] Organization [facility] Care Team Providers Care Cash Applications Coordinator Name Role Phone [facility] Unavailable Unavailable Problems Combined list of problems from Department of [facility] and [facility] facilities. It does not include entries that were removed or entered in error. Problem Status Onset Date Problem Type Date of Resolution Comments Source GERD - Gastro-Esophage al Reflux Disease ([facility] [id number]) Active 1 Condition Oct 13, 2021 Entered By: RACHEL WELDON Comment: followed by VIANNEY HINDS Male infertility Active 0 Condition Jul 02, 2020 Entered By: RACHEL WELDON Comment: [facility] [place] [facility] Systemic mast cell disease Active 0 Condition Jul 02, 2020 Entered By: RACHEL WELDON Comment: referred to allergy immun[facility] [place] [facility] Fracture of shaft of femur, open Active 4 Condition [place] Medications Combined list of outpatient medications from [facility] and [facility] facilities.Medications provided include 1) outpatient medications from the last 15 months, and 2) patient-reported medications. Medication Details Route Status Patient Instructions Prescription Expires Prescription Number Last Dispense Date Ordering Provider Order Date Order Qty Source FENTANYL 100MCG/HR PATCH APPLY 1 PATCH TO SKIN NEEDED TRANSD ERMAL ACTIVE SHIRAZ,HOW MEGHAN D 2019 [facility] [place] [facility] LORAZEPAM 2MG TAB TAKE TWO TABLETS BY MOUTH NEEDED ORAL ACTIVE SHIRAZ,HOW MEGHAN D 2019 [facility] [place] Allergies, Adverse Reactions, Alerts Combined list of allergies from Department of Defense and [facility] facilities. It does not include entries that were removed or entered in error. Substance Category Reaction Severity Reaction type Status Date Reported Comments Source ACETAMINOPHEN Propensity to adverse reactions to drug (finding) Nausea and vomiting active 3 [facility] [place] NONSTEROIDAL ANTI-INFLAMMA TORY Propensity to adverse reactions to drug (finding) Weakness present active 0 [facility] [place] TRICYCLIC ANTIDEPRESSAN TS Propensity to adverse reactions to drug (finding) Weakness present active 0 [facility] [place] Immunizations Combined list of available immunizations from the Department of Defense and Veterans Affairs facilities. Immunization Series Date Given Administered By Site Reaction Lot Number CVX Code Drug Pharmacy Assistant Status Comments Source TDAP 2014 115 complet ed [facility] [place] Encounters Combined list of: 1) Encounters from Department of Veterans Affairs facilities going backup to the last 18 months, not all VA inpatient encounters are included; 2) Encounters from the Department of Defense facilities going backup to 280 months. Location Location Details Encounter Type Encounter Number Reason For Visit Attending Provider ADM Date DC Date Status Disposition Source [facility] Outpatient Encounter [id number] 11/14 [facility] [place] [id number] 12/21 [facility] [place] [id number] 12/28 [facility] [place] En[facility] [id number] AGAPITO TURCIOS ISTOPHER E 02/11 [facility] En[facility] [id number] 04/18 [facility] Social History Combined list of available smoking, tobacco, and other social history from Department of Defense and Veterans Affairs facilities. Social History Type Response Date Comment Sourc e Tobacco smoking status NHIS VA-TOBACCO FORMER USER 11/29/2022 [facility] History of tobacco use VA-TOBACCO QUIT 15 YRS OR MORE 11/29/2022 [facility] [place] History of tobacco use ID-TOBACCO QUIT 5 TO < 15 YRS 06/18/2020 [facility] History of tobacco use CURRENT SMOKER 05/16/2005 [place] History of tobacco use HISTORY OF SMOKING 02/10/2004 recently quit [place] Advance Directives List of completed, amended, or rescinded Advance Directives on record at Department of [facility] facilities. An actual copy of the Directive is not included. Date Advance Directive Provider Source 12/26/2022 ADVANCE DIRECTIVE SHANDA MEDINA [facility]
== END 2025-02-06 11:36 | disposition home or self-care (01) ==
LOC: HO.HMCFM 10:37
PROVIDERS: PCP Family Medicine; Visit Provider Family Medicine
DX: G89.29 Other chronic pain (principal); B34.9 Viral infection, unspecified; H65.92 Unspecified nonsuppurative otitis media, left ear

== ENCOUNTER 2025-02-06 11:50 | Outpatient (REF) | payer MEDICARE, SELFPAY ==
[2025-02-06 14:29] LABS: MANUAL DIFF FLAG NO
[2025-02-06 14:30] LABS: Basophils Absolute Auto 0.1 X10*3/uL (0.0-0.2); Basophils Percent Auto 0.5 % (0-2); Eosinophils Percent Auto 0.4 % (0-4); Hematocrit 47.1 % (42.0-52.0); Hemoglobin 15.7 g/dl (14.0-18.0); Imm Gran Abs Auto 0.04 X10*3/uL (0.00-0.03); Imm Gran Pct Auto 0.4 % (0.0-0.4); Lymphocytes Percent Auto 18.8 % (20-40); Mean Corpuscular HGB Conc 33.3 g/dl (31.0-36.0); Mean Corpuscular Hemoglobin 27.8 pg (27.0-33.0); Mean Corpuscular Volume 83.4 fL (80.0-98.0); Mean Platelet Volume 9.1 fL (9.4-12.4); Monocytes Absolute Auto 0.6 X10*3/uL (0.1-1.2); Monocytes Percent Auto 5.8 % (2-11); Neutrophils Absolute Auto 7.9 x10*3/uL (2.0-8.3); Neutrophils Percent Auto 74.1 % (45-73); Platelet Count 378 X10*3/uL (160-400); Red Blood Count 5.65 X10*6/uL (4.60-5.80); Red Cell Distribution Width 13.1 % (11.0-16.0); White Blood Count 10.6 X10*3/uL (4.8-10.8)
[2025-02-06 14:35] LABS: Appearance Urine Turbid; Color Urine Yellow; Glucose Urine UA Negative (Negative); Leukocyte Esterase Urine Negative (Negative); Nitrite Urine Negative (Negative); PH 5.5 (5.0-9.0); Urine Blood Negative (Negative); Urine Ketones Negative (Negative); Urine Protein Negative (Neg-Trace)
[2025-02-06 14:37] LABS: Amphetamine Screen Urine Not Detected (Not Detect); Barbiturates, Urine Not Detected (Not Detect); Benzodiazepines Screen Urine Not Detected (Not Detect); Buprenorphine Scr Not Detected (Not Detect); Cannabinoid Screen Urine POSITIVE (Not Detect); Cocaine Screen Urine Not Detected (Not Detect); Fentanyl, urine POSITIVE (Not Detect); Methadone Screen, Urine Not Detected (Not Detect); Opiate Screen Urine POSITIVE (Not Detect); Oxycodone Screen Urine Not Detected (Not Detect); Phencyclidine Screen Urine Not Detected (Not Detect)
[2025-02-06 15:09] LABS: Alanine Aminotransferase 21 U/L (0-40); Albumin Level 4.6 g/dL (3.5-5.0); Alkaline Phosphatase 66 U/L (39-117); Anion Gap 12 (12-20); Aspartate Amino Transferase 25 U/L (5-37); Bilirubin Total 0.9 mg/dL (0.0-1.0); Blood Urea Nitrogen 10 mg/dL (9-16); Calcium 9.4 mg/dL (8.4-10.2); Carbon Dioxide 29 mmol/L (22-29); Chloride 103 mmol/L (96-108); Estimated Glomerular Filt Rate > 60; Glucose Random 99 mg/dL (60-115); Potassium 4.1 mmol/L (3.3-5.1); Sodium 140 mmol/L (135-145); TSH reflex Free T4 1.09 uIU/mL (0.32-4.0); Total Protein 7.8 g/dL (6.5-8.0)
--- OUTSIDE RECORDS SUMMARY | 2025-02-06 15:17 | XMS_ITS | Continuity of Care Document ---
Author Name [facility] Organization [facility] Care Team Providers Care Design Drafter Chief Name Role Phone [facility] Unavailable Unavailable Problems Combined list of problems from Department of Defense and Veterans [facility] facilities. It does not include entries that were removed or entered in error. Problem Status Onset Date Problem Type Date of Resolution Comments Source GERD - Gastro-Esophage al Reflux Disease ([facility] [id number]) Active 1 Condition Oct 13, 2021 Entered By: RACHEL WELDON Comment: followed by VIANNEY HINDS Male infertility Active 0 Condition Jul 02, 2020 Entered By: RACHEL WELDON Comment[facility] [place] [facility] Systemic mast cell disease Active 0 Condition Jul 02, 2020 Entered By: RACHEL WELDON Comment: [facility] [place] [facility] Fracture of shaft of femur, open Active 4 Condition [place] Medications Combined list of outpatient medications from Department of Defense and [facility] facilities.Medications provided include 1) outpatient medications from the last 15 months, and 2) patient-reported medications. Medication Details Route Status Patient Instructions Prescription Expires Prescription Number Last Dispense Date Ordering Provider Order Date Order Qty Source FENTANYL 100MCG/HR PATCH APPLY 1 PATCH TO SKIN NEEDED TRANSD ERMAL ACTIVE SHIRAZ,HOW MEGHAN D 2019 [facility] [place] [facility] LORAZEPAM 2MG TAB TAKE TWO TABLETS BY MOUTH NEEDED ORAL ACTIVE SHIRAZ,HOW MEGHAN D 2019 [facility] Allergies, Adverse Reactions, Alerts Combined list of allergies from Department of Defense and Veterans Affairs facilities. It does not include entries that were removed or entered in error. Substance Category Reaction Severity Reaction type Status Date Reported Comments Source ACETAMINOPHEN Propensity to adverse reactions to drug (finding) Nausea and vomiting active 3 [facility] [place] NONSTEROIDAL ANTI-INFLAMMA [...] Site Reaction Lot Number CVX Code Drug Valuer Status Comments Source TDAP 2014 115 complet [...] [facility] [id number] 11/14 [facility] [id number] 12/21 [facility] En[facility] [id number] 12/28 [facility] En[facility] [id number] AGAPITO TURCIOS ISTOPHER E 02/11 [facility] [id number] 04/18 [facility] [place] [...] [facility] [place] [facility] History of tobacco use [place]-TOBACCO QUIT 5 TO < 15 YRS 06/18/2020 [facility] History of tobacco use CURRENT SMOKER 05/16/2005 [place] History of tobacco use HISTORY OF SMOKING 02/10/2004 recently quit [place] Advance Directives List of completed, amended, or rescinded Advance Directives on record at Department of [facility] facilities. An actual copy of the Directive is not included. Date Advance Directive Provider Source 12/26/2022 ADVANCE DIRECTIVE [facility]ANDA [facility]
[2025-02-06 15:20] LABS: Influenza A PCR NEGATIVE (Negative); Influenza B PCR NEGATIVE (Negative); Resp Syncy Virus RNA Qual PCR NEGATIVE (Negative); SARS COV2 PCR INHOUSE NEGATIVE (Negative)
[2025-02-11 11:46] LABS: Codeine, Ur NEGATIVE; Hydrocodone, Ur NEGATIVE; Hydromorphone, Ur 6942; Morphine, Ur NEGATIVE; Norhydrocodone, Ur NEGATIVE; Noroxycodone, Ur NEGATIVE; Oxycodone, Ur NEGATIVE; Oxymorphone, Ur NEGATIVE
== END 2025-02-06 11:51 | disposition home or self-care (01) ==
LOC: HO.WFDLDS 11:50
PROVIDERS: Visit Provider Family Medicine
DX: G89.29 Other chronic pain (principal); B34.9 Viral infection, unspecified; H65.92 Unspecified nonsuppurative otitis media, left ear; Z79.891 Long term (current) use of opiate analgesic; Z00.00 Encounter for general adult medical examination without abnormal findings; Z20.822 Contact with and (suspected) exposure to COVID-19
CPT/HCPCS: 0241U; 80053; 80307; 80365; 81003; 84443; 85025; 99212; G0480

== ENCOUNTER 2025-06-05 10:42 | Outpatient (AMB) | payer MEDICARE, SELFPAY ==
--- NOTE | 2025-06-05 10:44 | MHC.PC.OV ---
Intake Visit Reasons: f/u chronic pain Allergies amitriptyline (From Elavil) Allergy (Severe, Verified 06/05/25 10:44) Palpitations nortriptyline (Pamelor) Allergy (Severe, Verified 06/05/25 10:44) Blurred vision Milk Containing Products (Dairy) (Milk Containing Products) Allergy (Intermediate, Verified 06/05/25 10:44) stomach upset azithromycin (AZITHROMYCIN) Adverse Reaction (Severe, Verified 06/05/25 10:44) DIARRHEA, stomach pain,vomiting clonidine Adverse Reaction (Severe, Verified 06/05/25 10:44) Opposite reaction high blood pressure. duloxetine (From CYMBALTA) Adverse Reaction (Severe, Verified 06/05/25 10:44) undesired effect ibuprofen (IBUPROFEN) Adverse Reaction (Severe, Verified 06/05/25 10:44) STOMACH UPSET, vomiting meloxicam Adverse Reaction (Severe, Verified 06/05/25 10:44) stomach upset acetaminophen (From TYLENOL) Adverse Reaction (Intermediate, Verified 06/05/25 10:44) STOMACH UPSET aspirin Adverse Reaction (Intermediate, Verified 06/05/25 10:44) vomiting bupropion (From Wellbutrin) Adverse Reaction (Intermediate, Verified 06/05/25 10:44) dizziness NSAIDS (Non-Steroidal Anti-Inflamma (NSAIDS (NON-STEROIDAL ANTI-INFLAMMA) Adverse Reaction (Intermediate, Verified 06/05/25 10:44) STOMACH UPSET topiramate (Topamax) Adverse Reaction (Intermediate, Verified 06/05/25 10:44) unable to tolerate tramadol (Ultram) Adverse Reaction (Intermediate, Verified 06/05/25 10:44) Unable to tolerate morphine Adverse Reaction (Uncoded 11/08/24 10:45) flushed Medication List - Last Reconciled 06/05/25 by Alex Heart MD albuterol sulfate 90 mcg/actuation (Ventolin HFA) 2 puffs inhalation Q4-6H PRN 30 days cholecalciferol (vitamin D3) 1,250 mcg PO QWEEK 28 days cromolyn (Gastrocrom) 300 mg PO QID famotidine (Pepcid AC) 20 mg PO TID 3 months fentanyl 50 mcg/hr 1 patch transdermal Q48H 28 days folic acid 0.4 mg PO DAILY 30 days guanfacine ER 1 mg PO DAILY 30 days hydromorphone 2 mg PO Q8H PRN 28 days hydroxyzine HCl 25 mg PO QID PRN [Ketotifen 1 mg PO 2XD] lorazepam 1 mg PO TID-QID 28 days meclizine 25 mg PO Q8H PRN miscellaneous medical supply iv hydration as directed for 1 ltr of fluid up to 8 times per month for inability to maintain adequate fluid intake with condition miscellaneous medical supply 1 liter of saline as directed twice a week; naloxone 4 mg/actuation (Narcan) 4 mg intranasal Q2M PRN ondansetron 8 mg PO Q8H PRN 1 month sucralfate (Carafate) 1 g PO BID PRN ubrogepant 100 mg PO DAILY PRN Tobacco use date assessed: 05/15/24 Dental Screening Dental Screen Date: 01/11/24 HPI f/u chronic pain HPI Details 45 y/o male presents to f/u chronic pain via telemedicine. On a current regimen of fentanyl, hydromorphone. Pt notes medication regimen has been working well for his pain. Pt notes some oily stools and abd. discomfort. [facility] Medical History Elevated plasma metanephrines Anxiety Mast cell activation syndrome History of femur fracture Surgical History Deficient knowledge of leg surgery History of adenoidectomy Family History Father Heart disease Mother No problems noted. Paternal Grandfather Heart disease Maternal Grandfather Lung cancer Paternal Uncle Neurofibroma Mother Diabetes Maternal Grandmother Diabetes Heart attack Brother Thyroid disease Hx of cholecystectomy Sister Thyroid disease Social History Household Members: Spouse and Children Housing: House Alcohol intake: never Patient Tobacco Use Status: Never used Tobacco Tobacco use type: Cigarette Years Smoked: 5 e-Cigarette/Vaping Use: Never Used Second Hand Smoke Exposure: No Substance Use Type: Marijuana Advance Directives Date on File: 08/02/22 service: Yes ([employer]) Current occupational status: disabled Cognitive needs: No Hearing needs: No Vision needs: No Questionnaire Thrive Questionnaire Date Thrive assessed: 11/09/23 RICK-7 AMB Questionnaire RICK-7 Date RICK - 7 assessed: 11/09/23 Source: Developed by Drs. Nelson López, Mindi Jackson, Siva Carbajal and colleagues, with an educational debbie from [employer]. Physical exam (Primary Care) Tobacco/Smoking Status: Tobacco use Status Tobacco use date assessed 05/15/24 06/05/25 10:46 Patient Tobacco Use Status Never used Tobacco 06/05/25 10:46 Tobacco use type Cigarette 06/05/25 10:46 e-Cigarette/Vaping Use Never Used 06/05/25 10:46 Thrive Assessment: Date of Thrive Assessment Date Thrive assessed 11/09/23 06/05/25 10:46 Telehealth Telehealth Telehealth Platform: Telephone Location of provider rendering services: practice address Location of patient: address on file Patient Identification confirmed using: Name, : Yes Telehealth method: voice only Patient verbally consented to treatment: Yes Patient verbally consented to billing insurance company: Yes Patient informed of any privacy concerns related to visit: Yes Minutes spent on Phone/Video with Pt.: 6 Coding Level of Care Code Tele Est Pt Level 2 (53300) Diagnoses Chronic pain G89.29 Mast cell disorder D47.09 Assessment & Plan Assessment & Plan (1) Chronic pain: Code(s): G89.29 - Other chronic pain Category: Medical Plan: Patient is taking his medications as prescribed in they are working well for him. He has noted a little decrease need for his medications. He will continue to monitor this and let know if he requires less medication - will make adjustments if so. 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 Medications: Refilled fentanyl 50 mcg/hr Partial Fill upon patient request 1 patch transdermal Q48H 14 ea 0RF 28 days D89.40 - Mast cell activation, unspecified
--- OUTSIDE RECORDS SUMMARY | 2025-06-05 11:22 | XMS_ITS | Continuity of Care Document ---
Author Name [facility] Organization [facility] Care Team Providers Care Cmo Name Role Phone [facility] Unavailable Unavailable Problems Combined list of problems from Department of [facility] and [facility] facilities. It does not include entries that were removed or entered in error. Problem Status Onset Date Problem Type Date of Resolution Comments Source GERD - Gastro-Esophage al Reflux Disease ([facility] [id number]) Active 1 Condition Oct 13, 2021 Entered By: RACHEL WELDON Comment: followed by VIANNEY HINDS Male infertility Active 0 Condition Jul 02, 2020 Entered By: RACHEL WELDON Comment: referred to urology [facility] Systemic mast cell disease Active 0 Condition Jul 02, 2020 Entered By: RACHEL WELDON Comment: [facility] Fracture of shaft of femur, open Active 4 Condition [place] Medications Combined list of outpatient medications from Department of Defense and [facility] facilities.Medications provided include 1) outpatient medications from the last 15 months, and 2) patient-reported medications. Medication Details Route Status Patient Instructions Prescription Expires Prescription Number Last Dispense Date Ordering Provider Order Date Order Qty Source FENTANYL 100MCG/HR PATCH APPLY 1 PATCH TO SKIN NEEDED TRANSD ERMAL ACTIVE SHIRAZ,HOW MEGHAN D 2019 [facility] LORAZEPAM 2MG TAB TAKE TWO TABLETS BY MOUTH NEEDED ORAL ACTIVE SHIRAZHOW MEGHAN D 2019 [facility] Allergies, Adverse Reactions, Alerts Combined list of allergies from Department of Defense and Veterans Affairs facilities. It does not include entries that were removed or entered in error. Substance Category Reaction Severity Reaction type Status Date Reported Comments Source ACETAMINOPHEN Drug allergy (disorder) Nausea and Vomiting active 3 [facility] on [facility] ACETAMINOPHEN Propensity to adverse reactions to drug (finding) Nausea and vomiting active 3 [facility] ANTIPYRINE Drug allergy (disorder) Weakness present active 0 [place] [facility] NONSTEROIDAL ANTI-INFLAMMA [place]ORY Propensity to adverse reactions to drug (finding) Weakness present active 0 [facility] TRICYCLIC ANTIDEPRESSAN TS Propensity to adverse reactions to drug (finding) Weakness present active 0 [facility] Immunizations Combined list of available immunizations from the Department of Defense and Veterans Affairs facilities. Immunization Series Date Given Administered By Site Reaction Lot Number CVX Code Drug Custom Clothier Status Comments Source TDAP 2014 115 complet ed [facility] Encounters Combined list of: 1) Encounters from Department of Veterans Affairs facilities going backup to the last 18 months, not all [place] inpatient encounters are included; 2) Encounters from the Department of [facility] facilities going backup to 280 months. Location Location Details Encounter Type Encounter Number Reason For Visit Attending Provider ADM Date DC Date Status Disposition Source [facility] Outpatient Encounter [id number] 12/21 [facility]counter [id number] 12/28 [facility] Outpatient Encounter [id number] AGAPITO TURCIOS ISSHAN [place] 02/11 [facility] Out[facility] Encounter [id number] 04/18 [facility] Procedures Combined list of: 1) Procedures from Department of Veterans Affairs facilities going back up to thelast 18 months, not all [place] non-surgical procedures are included; 2) All procedures from the Department of Defense facilities. Procedure Procedure Type Code Date Perfomer Comments Sour e EDUCATIONAL SUPPLIES, SUCH A S BOOKS, TAPES, AND PAMPHLETS, FOR THE PATIENT'S EDUCATION AT COST TO PHYSICIAN OR OTHER QUALIFIED HEALTH ICE CREAM SHOP ASSOCIATE 05/17/2002 [facility] EDUCATIONAL SUPPLIES, SUCH A S BOOKS, TAPES, AND PAMPHLETS, FOR THE PATIENT'S EDUCATION AT COST TO PHYSICIAN OR OTHER QUALIFIED HEALTH ICE CREAM SHOP ASSOCIATE 05/16/2002 DoD EDUCATIONAL SUPPLIES, SUCH A S BOOKS, TAPES, AND PAMPHLETS, FOR THE PATIENT'S EDUCATION AT COST TO PHYSICIAN OR OTHER QUALIFIED HEALTH ICE CREAM SHOP ASSOCIATE 05/15/2002 DoD EDUCATIONAL SUPPLIES, SUCH A S BOOKS, TAPES, AND PAMPHLETS, FOR THE PATIENT'S EDUCATION AT COST TO PHYSICIAN OR OTHER QUALIFIED HEALTH ICE CREAM SHOP ASSOCIATE 05/14/2002 DoD EDUCATIONAL SUPPLIES, SUCH A S BOOKS, TAPES, AND PAMPHLETS, FOR THE PATIENT'S EDUCATION AT COST TO PHYSICIAN OR OTHER QUALIFIED HEALTH ICE CREAM SHOP ASSOCIATE 05/13/2002 DoD EDUCATIONAL SUPPLIES, SUCH A S BOOKS, TAPES, AND PAMPHLETS, FOR THE PATIENT'S EDUCATION AT COST TO PHYSICIAN OR OTHER QUALIFIED HEALTH ICE CREAM SHOP ASSOCIATE 05/12/2002 DoD EDUCATIONAL SUPPLIES, SUCH A S BOOKS, TAPES, AND PAMPHLETS, FOR THE PATIENT'S EDUCATION AT COST TO PHYSICIAN OR OTHER QUALIFIED HEALTH ICE CREAM SHOP ASSOCIATE 05/11/2002 DoD EDUCATIONAL SUPPLIES, SUCH A S BOOKS, TAPES, AND PAMPHLETS, FOR THE PATIENT'S EDUCATION AT COST TO PHYSICIAN OR OTHER QUALIFIED HEALTH ICE CREAM SHOP ASSOCIATE 05/10/2002 [facility] PHARMACOLOGIC MANAGEMENT, INCLUDING PRESCRIPTION, USE, AND REVIEW OF MEDICATION WITH NO MORE THAN MINIMAL MEDICAL PSYCHOTHERAPY 05/09/2002 [facility]D EDUCATIONAL SUPPLIES, SUCH A S BOOKS, TAPES, AND PAMPHLETS, FOR THE PATIENT'S EDUCATION AT COST TO PHYSICIAN OR OTHER QUALIFIED HEALTH ICE CREAM SHOP ASSOCIATE 05/09/2002 DoD EDUCATIONAL SUPPLIES, SUCH A S BOOKS, TAPES, AND PAMPHLETS, FOR THE PATIENT'S EDUCATION AT COST TO PHYSICIAN OR OTHER QUALIFIED HEALTH ICE CREAM SHOP ASSOCIATE 05/08/2002 [facility] PHYS/OTH QUALIFIED HEALTH ICE CREAM SHOP ASSOCIATE QUALIFIED,EDUCATION,TRAIN,LIC ENSURE/REGULATION (WHEN APPLICABLE) EDUC SER RENDERED TO PATS IN A GRP SETTING (EG,,OBESITY,OR DIABETIC INSTRUCT) 05/07/2002 [facility] EDUCATIONAL SUPPLIES, SUCH A S BOOKS, TAPES, AND PAMPHLETS, FOR THE PATIENT'S EDUCATION AT COST TO PHYSICIAN OR OTHER QUALIFIED HEALTH ICE CREAM SHOP ASSOCIATE 05/07/2002 [facility] PHARMACOLOGIC MANAGEMENT, INCLUDING PRESCRIPTION, USE, AND REVIEW OF MEDICATION WITH NO MORE THAN MINIMAL MEDICAL PSYCHOTHERAPY 05/06/2002 DoD EDUCATIONAL SUPPLIES, SUCH A S BOOKS, TAPES, AND PAMPHLETS, FOR THE PATIENT'S EDUCATION AT COST TO PHYSICIAN OR OTHER QUALIFIED HEALTH ICE CREAM SHOP ASSOCIATE 05/06/2002 DoD EDUCATIONAL SUPPLIES, SUCH A S BOOKS, TAPES, AND PAMPHLETS, FOR THE PATIENT'S EDUCATION AT COST TO PHYSICIAN OR OTHER QUALIFIED HEALTH ICE CREAM SHOP ASSOCIATE 05/05/2002 DoD EDUCATIONAL SUPPLIES, SUCH A S BOOKS, TAPES, AND PAMPHLETS, FOR THE PATIENT'S EDUCATION AT COST TO PHYSICIAN OR OTHER QUALIFIED HEALTH ICE CREAM SHOP ASSOCIATE 05/04/2002 DoD EDUCATIONAL SUPPLIES, SUCH A S BOOKS, TAPES, AND PAMPHLETS, FOR THE PATIENT'S EDUCATION AT COST TO PHYSICIAN OR OTHER QUALIFIED HEALTH ICE CREAM SHOP ASSOCIATE 05/03/2002 DoD EDUCATIONAL SUPPLIES, SUCH A S BOOKS, TAPES, AND PAMPHLETS, FOR THE PATIENT'S EDUCATION AT COST TO PHYSICIAN OR OTHER QUALIFIED HEALTH ICE CREAM SHOP ASSOCIATE 05/02/2002 DoD EDUCATIONAL SUPPLIES, SUCH A S BOOKS, TAPES, AND PAMPHLETS, FOR THE PATIENT'S EDUCATION AT COST TO PHYSICIAN OR OTHER QUALIFIED HEALTH ICE CREAM SHOP ASSOCIATE 05/01/2002 DoD EDUCATIONAL SUPPLIES, SUCH A S BOOKS, TAPES, AND PAMPHLETS, FOR THE PATIENT'S EDUCATION AT COST TO PHYSICIAN OR OTHER QUALIFIED HEALTH ICE CREAM SHOP ASSOCIATE 04/30/2002 DoD EDUCATIONAL SUPPLIES, SUCH A S BOOKS, TAPES, AND PAMPHLETS, FOR THE PATIENT'S EDUCATION AT COST TO PHYSICIAN OR OTHER QUALIFIED HEALTH ICE CREAM SHOP ASSOCIATE 04/29/2002 DoD EDUCATIONAL SUPPLIES, SUCH A S BOOKS, TAPES, AND PAMPHLETS, FOR THE PATIENT'S EDUCATION AT COST TO PHYSICIAN OR OTHER QUALIFIED HEALTH ICE CREAM SHOP ASSOCIATE 04/28/2002 DoD EDUCATIONAL SUPPLIES, SUCH A S BOOKS, TAPES, AND PAMPHLETS, FOR THE PATIENT'S EDUCATION AT COST TO PHYSICIAN OR OTHER QUALIFIED HEALTH ICE CREAM SHOP ASSOCIATE 04/27/2002 [facility] PREPARATION OF REPORT OF PATIENT'S PSYCHIATRIC STATUS, HISTORY, TREATMENT, OR PROGRESS (OTHER THAN FOR LEGAL OR CONSULTATIVE PURPOSES) FOR OTHER INDIVIDUALS, AGENCIES, OR INSURANCE CARRIERS 04/26/2002 [facility] SUPPLY OF SPECTACLES, EXCEPT PROSTHESIS FOR APHAKIA AND LOW VISION AIDS 04/05/2001 [facility] MEASLES AND RUBELLA VIRUS VACCINE, LIVE, FOR SUBCUTANEOUS USE 04/04/2001 [facility] PSYCHIATRIC EVALUATION OF HOSPITAL RECORDS, OTHER PSYCHIATRIC REPORTS, PSYCHOMETRIC AND/OR PROJECTIVE TESTS, AND OTHER ACCUMULATED DATA FOR MEDICALDIAGNOSTIC PURPOSES 01/23/2003 [facility] DETERMINATION OF VENOUS PRESSURE 07/24/2002 [facility] BEHAVIORAL HEALTH COUNSELING AND THERAPY, PER 15 MINUTES 07/16/2002 [facility] BEHAVIORAL HEALTH COUNSELING AND THERAPY, PER 15 MINUTES 07/12/2002 [facility] BEHAVIORAL HEALTH COUNSELING AND THERAPY, PER 15 MINUTES 07/05/2002 [facility] TYMPANOMETRY (IMPEDANCE TESTING) 07/04/2002 [facility] BEHAVIORAL HEALTH COUNSELING AND THERAPY, PER 15 MINUTES 07/01/2002 [facility] ALCOHOL AND/OR DRUG ASSESSMENT 06/28/2002 [facility] ELECTROCARDIOGRAM, ROUTINE ECG WITH AT LEAST 12 LEADS; TRACING ONLY, WITHOUT INTERPRETATION AND REPORT 06/27/2002 [facility] SCREENING TEST, PURE TONE, AIR ONLY 06/27/2002 [facility] PHARMACOLOGIC MANAGEMENT, INCLUDING PRESCRIPTION, USE, AND REVIEW OF MEDICATION WITH NO MORE THAN MINIMAL MEDICAL PSYCHOTHERAPY 06/27/2002 [facility] BEHAVIORAL HEALTH COUNSELING AND THERAPY, PER 15 MINUTES 06/26/2002 [facility] PHARMACOLOGIC MANAGEMENT, INCLUDING PRESCRIPTION, USE, AND REVIEW OF MEDICATION WITH NO MORE THAN MINIMAL MEDICAL PSYCHOTHERAPY 06/26/2002 [facility] INDIVIDUAL PSYCHOTHERAPY, INSIGHT ORIENTED, BEHAVIOR MODIFYING AND/OR SUPPORTIVE, IN AN OFFICE OR OUTPATIENT FACILITY, APPROXIMATELY 20 TO 30 MINUTES [id number] WITH THE PATIENT 06/25/2002 [facility] PHYS/OTH QUALIFIED HEALTH ICE CREAM SHOP ASSOCIATE QUALIFIED,EDUCATION,TRAIN,LIC ENSURE/REGULATION (WHEN APPLICABLE) EDUC SER RENDERED TO PATS IN A GRP SETTING (EG,,OBESITY,OR DIABETIC INSTRUCT) 06/25/2002 [facility] PHARMACOLOGIC MANAGEMENT, INCLUDING PRESCRIPTION, USE, AND REVIEW OF MEDICATION WITH NO MORE THAN MINIMAL MEDICAL PSYCHOTHERAPY 06/25/2002 [facility] GROUP PSYCHOTHERAPY (OTHER THAN OF A MULTIPLE-FAMILY GROUP) 06/24/2002 [facility] PHARMACOLOGIC MANAGEMENT, INCLUDING PRESCRIPTION, USE, AND REVIEW OF MEDICATION WITH NO MORE THAN MINIMAL MEDICAL PSYCHOTHERAPY 06/24/2002 [facility] THERAPEUTIC ACTIVITIES, DIRECT (ONE-ON-ONE) PATIENT CONTACT (USE OF DYNAMIC ACTIVITIES TO IMPROVE FUNCTIONAL PERFORMANCE), EACH 15 MINUTES 06/21/2002 [facility] GROUP PSYCHOTHERAPY (OTHER THAN OF A MULTIPLE-FAMILY GROUP) 06/21/2002 [facility] PHARMACOLOGIC MANAGEMENT, INCLUDING PRESCRIPTION, USE, AND REVIEW OF MEDICATION WITH NO MORE THAN MINIMAL MEDICAL PSYCHOTHERAPY 06/21/2002 [facility] PHARMACOLOGIC MANAGEMENT, INCLUDING PRESCRIPTION, USE, AND REVIEW OF MEDICATION WITH NO MORE THAN MINIMAL MEDICAL PSYCHOTHERAPY 06/20/2002 [facility] PHARMACOLOGIC MANAGEMENT, INCLUDING PRESCRIPTION, USE, AND REVIEW OF MEDICATION WITH NO MORE THAN MINIMAL MEDICAL PSYCHOTHERAPY 06/19/2002 [facility] GROUP PSYCHOTHERAPY (OTHER THAN OF A MULTIPLE-FAMILY GROUP) 06/19/2002 [facility] INTERACTIVE GROUP PSYCHOTHERAPY 06/18/2002 [facility] PHYS/OTH QUALIFIED HEALTH ICE CREAM SHOP ASSOCIATE QUALIFIED,EDUCATION,TRAIN,LIC ENSURE/REGULATION (WHEN APPLICABLE) EDUC SER RENDERED TO PATS IN A GRP SETTING (EG,,OBESITY,OR DIABETIC INSTRUCT) 06/18/2002 [facility] PHARMACOLOGIC MANAGEMENT, INCLUDING PRESCRIPTION, USE, AND REVIEW OF MEDICATION WITH NO MORE THAN MINIMAL MEDICAL PSYCHOTHERAPY 06/18/2002 [facility] THERAPEUTIC ACTIVITIES, DIRECT (ONE-ON-ONE) PATIENT CONTACT (USE OF DYNAMIC ACTIVITIES TO IMPROVE FUNCTIONAL PERFORMANCE), EACH 15 MINUTES 06/17/2002 [facility] PHARMACOLOGIC MANAGEMENT, INCLUDING PRESCRIPTION, USE, AND REVIEW OF MEDICATION WITH NO MORE THAN MINIMAL MEDICAL PSYCHOTHERAPY 06/17/2002 [facility] THERAPEUTIC ACTIVITIES, DIRECT (ONE-ON-ONE) PATIENT CONTACT (USE OF DYNAMIC ACTIVITIES TO IMPROVE FUNCTIONAL PERFORMANCE), EACH 15 MINUTES 06/14/2002 [facility] GROUP PSYCHOTHERAPY (OTHER THAN OF A MULTIPLE-FAMILY GROUP) 06/14/2002 [facility] PHARMACOLOGIC MANAGEMENT, INCLUDING PRESCRIPTION, USE, AND REVIEW OF MEDICATION WITH NO MORE THAN MINIMAL MEDICAL PSYCHOTHERAPY 06/14/2002 [facility] INDIVIDUAL PSYCHOTHERAPY, INSIGHT ORIENTED, BEHAV MODIFY &/ SUPPORTIVE, IN AN INPATIENT HOSPITAL, PARTIAL HOSP/RESIDENTIAL CARE SETTING, APPROX 20-30 MIN [id number] W THE PAT;W MED EVAL & MGT SER 06/13/2002 [facility] PHARMACOLOGIC MANAGEMENT, INCLUDING PRESCRIPTION, USE, AND REVIEW OF MEDICATION WITH NO MORE THAN MINIMAL MEDICAL PSYCHOTHERAPY 06/13/2002 [facility] UNLISTED PSYCHIATRIC SERVICE OR PROCEDURE 06/12/2002 [facility] INTERACTIVE PSYCHIATRIC DIAGNOSTIC INTERVIEW EXAMINATION USING PLAY EQUIPMENT, PHYSICAL DEVICES, OB GYN PHYSICIAN ASSISTANT, OR OTHER MECHANISMS OF COMMUNICATION 06/12/2002 [facility] PHARMACOLOGIC MANAGEMENT, INCLUDING PRESCRIPTION, USE, AND REVIEW OF MEDICATION WITH NO MORE THAN MINIMAL MEDICAL PSYCHOTHERAPY 06/12/2002 [facility] RECREATIONAL THERAPY 06/12/2002 [facility] INDIVIDUAL PSYCHOTHERAPY, INSIGHT ORIENTED, BEHAV MODIFY &/ SUPPORTIVE, IN AN INPATIENT HOSPITAL, PARTIAL HOSP/RESIDENTIAL CARE SETTING, APPROX 20-30 MIN [id number] W THE PAT;W MED EVAL & MGT SER 06/11/2002 [facility] THERAPEUTIC PROCEDURE(S), GROUP (2 OR MORE INDIVIDUALS) 06/07/2002 [facility] INDIVIDUAL PSYCHOTHERAPY, INSIGHT ORIENTED, BEHAVIOR MODIFYING AND/OR SUPPORTIVE, IN AN OFFICE OR OUTPATIENT FACILITY, APPROXIMATELY 45 TO 50 MINUTES [id number] WITH THE PATIENT 06/06/2002 [facility] PHARMACOLOGIC MANAGEMENT, INCLUDING PRESCRIPTION, USE, AND REVIEW OF MEDICATION WITH NO MORE THAN MINIMAL MEDICAL PSYCHOTHERAPY 05/20/2002 [facility] THERAPEUTIC PROCEDURE(S), GROUP (2 OR MORE INDIVIDUALS) 04/26/2002 [facility] DRUG DETOXIFICATION 04/25/2002 [facility] OTHER INDIVIDUAL PSYCHOTHERAPY 04/25/2002 [facility] OCCUPATIONAL THERAPY 04/25/2002 [facility] COMPUTERIZED AXIAL TOMOGRAPH Y OF ABDOMEN 04/25/2002 [facility] RECREATIONAL THERAPY 04/25/2002 [facility] THERAPEUTIC PROCEDURE(S), GROUP (2 OR MORE INDIVIDUALS) 04/24/2002 [facility] THERAPEUTIC PROCEDURE(S), GROUP (2 OR MORE INDIVIDUALS) 04/19/2002 [facility] DEVELOPMENTAL TESTING, (INCLUDES ASSESSMENT OF MOTOR, LANGUAGE, SOCIAL, ADAPTIVE, AND/OR COGNITIVE FUNCTIONING BY STANDARDIZED DEVELOPMENTAL INSTRUMENTS) WITH INTERPRETATION AND REPORT 04/17/2002 [facility] PHARMACOLOGIC MANAGEMENT, INCLUDING PRESCRIPTION, USE, AND REVIEW OF MEDICATION WITH NO MORE THAN MINIMAL MEDICAL PSYCHOTHERAPY 04/11/2002 [facility] PHARMACOLOGIC MANAGEMENT, INCLUDING PRESCRIPTION, USE, AND REVIEW OF MEDICATION WITH NO MORE THAN MINIMAL MEDICAL PSYCHOTHERAPY 03/28/2002 [facility] PHARMACOLOGIC MANAGEMENT, INCLUDING PRESCRIPTION, USE, AND REVIEW OF MEDICATION WITH NO MORE THAN MINIMAL MEDICAL PSYCHOTHERAPY 03/07/2002 [facility] PHARMACOLOGIC MANAGEMENT, INCLUDING PRESCRIPTION, USE, AND REVIEW OF MEDICATION WITH NO MORE THAN MINIMAL MEDICAL PSYCHOTHERAPY 02/27/2002 [facility] GROUP PSYCHOTHERAPY (OTHER THAN OF A MULTIPLE-FAMILY GROUP) 02/12/2002 [facility] INDIVIDUAL PSYCHOTHERAPY, INSIGHT ORIENTED, BEHAVIOR MODIFYING AND/OR SUPPORTIVE, IN AN OFFICE OR OUTPATIENT FACILITY, APPROXIMATELY 45 TO 50 MINUTES [id number] WITH THE PATIENT 02/07/2002 [facility] EDUCATIONAL SUPPLIES, SUCH A S BOOKS, TAPES, AND PAMPHLETS, FOR THE PATIENT'S EDUCATION AT COST TO PHYSICIAN OR OTHER QUALIFIED HEALTH ICE CREAM SHOP ASSOCIATE 01/16/2002 [facility] INFLUENZA VIRUS VACCINE, TRIVALENT (IIV3), SPLIT VIRUS, 0.5 ML DOSAGE, FOR INTRAMUSCULAR USE 12/28/2001 [facility] SKIN TEST; TUBERCULOSIS, INTRADERMAL 12/14/2001 [facility] UNLISTED VACCINE/TOXOID 12/11/2001 [facility] SKIN TEST; TUBERCULOSIS, INTRADERMAL 12/11/2001 [facility] Social History Combined list of available smoking, tobacco, and other social history from Department of Defense and Veterans Affairs facilities. Social History Type Response Date Comment Sourc e Tobacco smoking status NHIS VA-TOBACCO FORMER USER 11/29/2022 [facility] History of tobacco use VA-TOBACCO QUIT 15 YRS OR MORE 11/29/2022 [facility] History of tobacco use VA-TOBACCO QUIT 5 TO < 15 YRS 06/18/2020 [facility] History of tobacco use CURRENT SMOKER 05/16/2005 [place] History of tobacco use HISTORY OF SMOKING 02/10/2004 recently quit [place] This section is an empty social history section. [facility] Advance Directives List of completed, amended, or rescinded Advance Directives on record at Department of Veterans Affairs facilities. An actual copy of the Directive is not included. Date Advance Directive Provider Source 12/26/2022 ADVANCE DIRECTIVE MACIEL-SHANDA GREEN [place] [facility]
== END 2025-06-05 11:53 | disposition home or self-care (01) ==
LOC: HO.HMCFM 10:42
PROVIDERS: PCP Family Medicine; Visit Provider Family Medicine
DX: G89.29 Other chronic pain (principal); D47.09 Other mast cell neoplasms of uncertain behavior

== ENCOUNTER 2025-07-23 13:22 | Emergency (ER) | payer MEDICARE, SELFPAY ==
--- NOTE | ~2025-07-23 | CT_ITS ---
CLINICAL HISTORY: abdominal pain CT abdomen and pelvis with contrast Comparison: CT/REG/SR - CT ABDOMEN PELVIS WITHOUT IV CONTRAST - 10/05/22 09:40 EST Findings: CT abdomen: Minor linear atelectasis or scarring within the lung bases. No focal areas of consolidation. No pleural effusion. No acute bony abnormality. No focal hepatic lesion. Main portal vein is patent. Spleen, pancreas, gallbladder, adrenal glands, and kidneys are unremarkable for acute findings. There is a 3 mm hyperdensity within the left renal hilum which may be related to a small renal calculus or early contrast excretion. Regardless, no hydronephrosis or perinephric stranding. No ureteral calculi. Small bowel loops are of normal caliber. No free fluid or free air. CT pelvis: Appendix is normal. No colonic wall thickening or pericolonic inflammatory stranding. No enlarged lymph nodes. Urinary bladder is [id number] distended. No free fluid or free air. IMPRESSION: No acute imaging explanation for the patient's symptoms. This document has been electronically signed by: Zeke Keller MD on 07/23/2025 22:29:10
--- NOTE | ~2025-07-23 | XR_ITS ---
EXAMINATION: XR CHEST CLINICAL INFORMATION: CP COMPARISON: 05/21/2024 TECHNIQUE: 2 views of the chest were obtained. FINDINGS: The cardiac, hilar, and mediastinal contours are normal. The lungs are clear bilaterally. There is no pneumothorax or pleural effusion. There is no focal osseous or soft tissue abnormality. XR/XR chest 2V IMPRESSION: Normal chest. Electronically signed by: Kamran Nelson MD 07/23/2025 03:22 PM EDT
--- NOTE | 2025-07-23 13:58 | ECG_ITS ---
Test Reason : CP Blood Pressure : */* mmHG Vent. Rate : 92 BPM Atrial Rate : 92 BPM P-R Int : 112 ms QRS Dur : 86 ms QT Int : 378 ms P-R-T Axes : 33 23 65 degrees QTcB Int : 467 ms Normal sinus rhythm with sinus arrhythmia Nonspecific T wave abnormality Abnormal ECG When compared with ECG of 02-Nov-2021 08:43, No significant change was found Referred By: Myrna Quan Electronically Signed By: SERENITY LENTZ
[2025-07-23 14:34] VITALS: BP 152/88; PULSE 88; RESP 18; TEMP 36.8; O2SAT 96; BMI 24.4
--- NOTE | 2025-07-23 14:34 | ED_ITS ---
HPI - Nausea/Vomiting/Diarrhea General Chief complaint: Abdominal Pain Stated complaint: Diarrhea Headache Time Seen by Provider: 07/23/25 20:33 Source: patient Mode of arrival: ambulatory Limitations: no limitations History of Present Illness ED Provider: Dr. Kinsey HPI Narrative: This is a 45-year-old male history of MAST cell disease presented hospital today for evaluation of abdominal pain. Patient stated that this started today. Patient is complaining of the epigastric pain that radiates to his back. Patient does endorse some nausea however no vomiting. Does have some watery mucousy diarrhea. Patient states he does have pain when he eats. He is concerned that he may have some gallbladder issues. Related Data Home Medications ?Medication ?Instructions ?Recorded ?Confirmed meclizine 12.5 mg tablet 25 mg PO Q8H PRN Dizziness 1 12/09/19 06/05/25 cromolyn 100 mg/5 mL oral 300 mg PO QID 07/30/2206/05 concentrate (Gastrocrom) sucralfate 1 gram tablet (Carafate) 1 g PO BID PRN Aci d Reflux 07/30/22 06/05/25 Ketotifen 1 mg PO 2XD Mass cell stabal izer 01/11/24 06/05/25 Previous Rx's ?Medication ?Instructions ?Recorded ondansetron 8 mg disintegrating 8 mg PO Q8H PRN nausea and 11/10/21 tablet vomiting 1 month #60 tabs famotidine 20 mg tablet (Pepcid AC) 20 mg PO TID 3 mon ths #270 tabs 12/24/21 naloxone 4 mg/actuation nasal 4 mg intranasal Q2M PRN opioid 03/31/22 spray (Narcan) overdose #2 ea miscellaneous medical supply See Rx Instructions misce llaneous 10/06/22 .COMPLEX #2 ea miscellaneous medical supply See Rx Instructions misce llaneous 10/18/22 .COMPLEX 1-2 times per week #8 multiple units albuterol sulfate 90 mcg/actuation 2 puff inhalation Q 4-6H PRN 05/16/24 aerosol inhaler (Ventolin HFA) shortness of breath or wheezing 30 days #8.5 grams hydroxyzine HCl 25 mg tablet 25 mg PO QID PRN itching #120 tabs 01/03/25 cholecalciferol (vitamin D3) 1,250 1,250 mcg PO QWEEK 28 days #4 caps 01/29/25 mcg (50,000 unit) capsule folic acid 400 mcg tablet 0.4 mg PO DAILY 30 days #30 tabs 01/29/25 guanfacine 1 mg tablet,extended 1 mg PO DAILY 30 days #30 tabs 05/23/25 release 24 hr ubrogepant 100 mg tablet 100 mg PO DAILY PRN migraine 06/09/25 headache #16 tabs fentanyl 50 mcg/hr transdermal 1 patch transdermal Q48 H 28 days 07/04/25 patch #14 ea hydromorphone 2 mg tablet 2 mg PO Q8H PRN pain 28 days #84 07/15/25 tabs lorazepam 1 mg tablet 1 mg PO TID-QID anxiety 28 d ays 07/15/25 #112 tabs dicyclomine 10 mg capsule 5 mg (1/2 x 10 mg) PO BID #1 4 caps 07/24/25 Allergies Allergy/AdvReac Type Severity Reaction Status Date / Time amitriptyline (From Elavil) Allergy Severe Palpitation Verified 07/23/25 14:35 s nortriptyline (Pamelor) Allergy Severe Blurred Verified 07/23/25 14:35 vision Milk Containing Products Allergy Intermediate stomach Verified 07/23/25 14:35 (Dairy) (Milk Containing upset Products) azithromycin (AZITHROMYCIN) AdvReac Severe DIARRHEA, Verified 07/23/25 14:35 stomach pain,vomiting clonidine AdvReac Severe Opposite Verified 07/23/25 14:35 reaction high blood pressure. duloxetine (From CYMBALTA) AdvReac Severe undesired Verified 07/23/25 14:35 effect ibuprofen (IBUPROFEN) AdvReac Severe STOMACH Verified 07/23/25 14:35 UPSET, vomiting meloxicam AdvReac Severe stomach Verified 07/23/25 14:35 upset acetaminophen (From TYLENOL) AdvReac Intermediate STOMACH Verified 07/23/25 14:35 UPSET aspirin AdvReac Intermediate vomiting Verified 07/23/25 14:35 bupropion (From Wellbutrin) AdvReac Intermediate dizziness Verified 07/23/25 14:35 NSAIDS (Non-Steroidal AdvReac Intermediate STOMACH Verified 07/23/25 14:35 Anti-Inflamma (NSAIDS UPSET (NON-STEROIDAL ANTI-INFLAMMA) topiramate (Topamax) AdvReac Intermediate unable to Verified 07/23/25 14:35 tolerate tramadol (Ultram) AdvReac Intermediate Unable to Verified 07/23/25 14:35 tolerate morphine AdvReac flushed Uncoded 11/08/24 10:45 Review of Systems 2 Review of Systems: Pertinent review of systems as mentioned in HPI. All other system otherwise negative. PMFSH Past Medical History [facility] Narrative: Medical history as mentioned in HPI Medical History Elevated plasma metanephrines Anxiety Mast cell activation syndrome History of femur fracture Surgical History Deficient knowledge of leg surgery History of adenoidectomy Family History Family History Father Heart disease Mother No problems noted. Paternal Grandfather Heart disease Maternal Grandfather Lung cancer Paternal Uncle Neurofibroma Mother Diabetes Maternal Grandmother Diabetes Heart attack Brother Thyroid disease Hx of cholecystectomy Sister Thyroid disease Social History Social History Household Members: Spouse and Children Housing: House Alcohol intake: never Patient Tobacco Use Status: Never used Tobacco Tobacco use type: Cigarette Years Smoked: 5 Smoked in Last 30 Days: No e-Cigarette/Vaping Use: Never Used Second Hand Smoke Exposure: No Use of substances other than those prescribed or required for medical reasons: Yes Substance Use Type: Marijuana Advance Directives: Yes Advance Directives on File: Yes Advance Directives Date on File: 08/02/22 service: Yes ([employer]) Current occupational status: disabled Cognitive needs: No Hearing needs: No Vision needs: No Physical Exam 2 Exam: Exam: General: Pleasant, no distress, interacting appropriately Head: Normacephalic, atraumatic ENT: oral mucosa moist, neck supple, no tracheal deviation Cardiovascular: regular rate, regular rhythm, no murmurs, rubbing, gallops Respiratory: CTAB, no wheeze, rales, rhonchi Gastrointestinal: Soft, non distended, epigastric tenderness on exam, negative Iyer's sign Extremities: No limb pain or swelling, no calf tenderness Neurological: Awake and alert, no facial droop noted Skin: Warm and dry Psychiatric: Appropriate mood and thoughts Vital Signs: Vital Signs: Last Vital Signs Temp 97.9 F 07/23/25 21:55 Pulse 74 07/23/25 22:55 Resp 16 07/23/25 22:55 BP 104/86 07/23/25 22:55 Pulse Ox 99 07/23/25 22:55 O2 Del Method Room Air 07/23/25 22:55 BMI result Body Mass Index 24.4 Course Course Course Narrative: This is an RME: Additional HPI, ROS, PE not included below will be deferred to primary provider. RME assessment and note performed by: Myrna Quan PA-C This is a [id number]-male, with a hx of mast cell activation syndrome, who presents to the ER with complaints of abdominal pain for the last 15 days. Reports that he has had 12 oiling, unformed stool this AM. No fevers. Plan: Labs, EKG, cxr, further ER eval needed. Medications Administered Discontinued Medications Generic Name Dose Route Start Last Admin Trade Name Freq PRN Reason Stop Dose Admin Al Hydroxide/Mg Hydroxide 30 ml 07/23/25 23:11 07/23/25 23:35 Magnesium Hydrox/Alum Hydrox 30 Ml Oral.Susp PO 07/23/25 23:12 30 ml ONCE ONE Administration Hydromorphone HCl 0.5 mg 07/23/25 22:02 07/23/25 22:50 Hydromorphone Hcl 0.5 Mg/0.5 Ml Syringe IVPUSH 07/23/25 22:03 0.5 mg ONCE ONE Administration Protocol Sodium Chloride 1,000 mls @ 999 mls/hr 07/23/25 21:15 07/23/25 22:53 Ns IV 07/23/25 22:15 Infused .Q1H1M JEFF Infusion Iohexol 85 ml 07/23/25 21:35 07/23/25 21:36 Iohexol 350 Mg/Ml 100 Ml Infus..Btl IV 07/23/25 21:36 85 ml ONCE ONE Administration Lidocaine HCl 15 ml 07/23/25 23:11 07/23/25 23:35 Lidocaine Hcl Viscous 2 % 15 Ml Solution MUCOUS MEM 07/23/25 23:12 15 ml ONCE ONE Administration Medical Decision Making Medical Decision Making MDM Narrative: 45-year-old male history of MAST cell disease presented hospital today for evaluation of abdominal pain and diarrhea. Plan to give patient a bolus IV fluid. CT imaging will be performed on his abdomen. Patient does have leukocytosis at 12. No sign of transaminitis or elevated bilirubin or alk-phos. Given abdominal pain is in her leukocytosis we will perform additional imaging for the patient. CT imaging did not show any signs of abnormality. GI cocktail was given with minimal relief. Patient is complaining of umbilical area. Patient's UA is clear. Bedside ultrasound was performed. No sign of anterior gallbladder wall thickening. No Iyer's sign on exam. Patient does not have any signs of gallstones. No sign of pericholecystic fluid. This was reviewed with the patient as well. We will plan to discharge patient at this time. We will start him a small dose of Bentyl for his abdominal pain. Encouraged the patient to follow up with his primary care doctor. He agrees and understands this plan. Differential Diagnosis Differential Diagnoses: The differential diagnosis associated with the presentation includes Gastritis, cholecystitis, pancreatitis, colitis Lab Data MDM Lab Attestation statement: I reviewed the patient's lab results. 07/23/25 15:09 07/23/25 15:09 Labs: Lab Results 07/23/25 07/23/25 Range/Units 15:09 22:59 WBC 12.7 H (4.8-10.8) X10*3/uL RBC 5.92 H (4.60-5.80) X10*6/uL Hgb 16.5 (14.0-18.0) g/dl Hct 49.2 (42.0-52.0) % MCV 83.1 (80.0-98.0) fL MCH 27.9 (27.0-33.0) pg MCHC 33.5 (31.0-36.0) g/dl RDW 12.8 (11.0-16.0) % Plt Count 369 (160-400) X10*3/uL MPV 8.5 L (9.4-12.4) fL Immature Gran % (Auto) 0.2 (0.0-0.4) % Neut % (Auto) 84.2 H (45-73) % Lymph % (Auto) 11.6 L (20-40) % [place] % (Auto) 3.5 (2-11) % Eos % (Auto) 0.1 (0-4) % Baso % (Auto) 0.4 (0-2) % Lymph # (Auto) 1.5 (1.2-4.9) X10*3/uL [place] # (Auto) 0.4 (0.1-1.2) X10*3/uL Eos # (Auto) 0.0 (0.0-0.4) X10*3/uL Baso # (Auto) 0.1 (0.0-0.2) X10*3/uL Abs Immat Gran (auto) 0.03 (0.00-0.03) X10*3/uL Absolute Neuts (auto) 10.7 H (2.0-8.3) x10*3/uL Absolute Nucleated RBC 0.000 (0.0-0.012) X10*3/uL Nucleated RBC % (auto) 0.0 (0.0-0.2) /100WBC Sodium 140 (135-145) mmol/L Potassium 4.4 (3.3-5.1) mmol/L Chloride 105 (96-108) mmol/L Carbon Dioxide 29 (22-29) mmol/L Anion Gap 10 L (12-20) BUN 7 L (9-16) mg/dL Creatinine 0.89 (0.5-1.4) mg/dL Estim Creat Clear Calc 110.5 Estimated GFR > 60 Random Glucose 127 H (60-115) mg/dL Calcium 9.8 (8.4-10.2) mg/dL Magnesium 2.1 (1.6-2.6) mg/dL Total Bilirubin 1.0 (0.0-1.0) mg/dL Direct Bilirubin 0.3 (0.0-0.5) mg/dL AST 25 (5-37) U/L ALT 17 (0-40) U/L Alkaline Phosphatase 67 (39-117) U/L Troponin I High Sens < 2.7 (<3.5-35.0) ng/L Total Protein 7.8 (6.5-8.0) g/dL Albumin 5.0 (3.5-5.0) g/dL Lipase 40 (8-78) U/L TSH 0.48 (0.32-4.0) uIU/mL Urine Color Yellow Urine Appearance Clear Urine pH 6.0 (5.0-9.0) Ur Specific [place] 1.010 (1.005-1.025) Urine Protein Negative (Neg-Trace) mg/dL Urine Glucose (UA) Negative (Negative) mg/dL Urine Ketones Negative (Negative) mg/dL Urine Blood Negative (Negative) Urine Nitrite Negative (Negative) Ur Leukocyte Esterase Negative (Negative) Independent Interpretation I performed an independent interpretation of an: CT Scan Radiology Impression Discussion of test interpretation with radiology: I have reviewed the radiologist's reading. Discharge Plan Discharge Clinical Impression: Abdominal pain Qualifiers: Abdominal location: unspecified location Qualified Code(s): R10.9 - Unspecified abdominal pain Patient Disposition: Home, Self-Care Additional Instructions: Your CAT scan did not show any problem with your gallbladder or pancreas. There is no signs of acute surgical problem based on his CAT scan. Prescriptions: New dicyclomine 10 mg capsule 5 mg PO BID Qty: 14 0RF No Action famotidine [Pepcid AC] 20 mg tablet 20 mg PO TID 90 Days Qty: 270 1RF naloxone [Narcan] 4 mg/actuation spray,non-aerosol 4 mg intranasal Q2M PRN (Reason: opioid overdose) Qty: 2 2RF Rx Instructions: spray 1 dose into ONE nostril; alternate nostrils w each dose until help arrives miscellaneous medical supply Misc See Rx Instructions miscellaneous .COMPLEX Qty: 8 8RF Rx Instructions: iv hydration as directed for 1 ltr of fluid up to 8 times per month for inability to maintain adequate fluid intake with condition hydroxyzine HCl 25 mg tablet 25 mg PO QID PRN (Reason: itching) Qty: 120 2RF cholecalciferol (vitamin D3) 1,250 mcg (50,000 unit) capsule 1,250 mcg PO QWEEK 28 Days Qty: 4 1RF folic acid 400 mcg tablet 0.4 mg PO DAILY 30 Days Qty: 30 2RF guanfacine 1 mg tablet extended release 24 hr 1 mg PO DAILY 30 Days Qty: 30 2RF ubrogepant 100 mg tablet 100 mg PO DAILY PRN (Reason: migraine headache) Qty: 16 5RF Rx Instructions: If patient is able to get more tablets per month please send the amount allowed for one month please and if needed resend request for medication fentanyl 50 mcg/hr patch 72 hour 1 patch transdermal Q48H 28 Days Qty: 14 0RF Rx Instructions: Partial Fill upon patient request hydromorphone 2 mg tablet 2 mg PO Q8H PRN (Reason: pain) 28 Days Qty: 84 0RF Rx Instructions: Partial Fill upon patient request. lorazepam 1 mg tablet 1 mg PO TID-QID 28 Days Qty: 112 0RF Rx Instructions: partial fill on request cromolyn [Gastrocrom] 100 mg/5 mL concentrate 300 mg PO QID sucralfate [Carafate] 1 gram tablet 1 g PO BID PRN (Reason: Acid Reflux) meclizine 12.5 mg tablet 25 mg PO Q8H PRN (Reason: Dizziness) ondansetron 8 mg tablet,disintegrating 8 mg PO Q8H PRN (Reason: nausea and vomiting) 30 Days Qty: 60 1RF albuterol sulfate [Ventolin HFA] 90 mcg/actuation HFA aerosol inhaler 2 puff inhalation Q4-6H PRN (Reason: shortness of breath or wheezing) 30 Days Qty: 8.5 3RF miscellaneous medical supply Misc See Rx Instructions miscellaneous .COMPLEX Qty: 2 8RF Rx Instructions: 1 liter of saline as directed twice a week; Ketotifen 1 mg PO 2XD Print Language: Ukrainian
[2025-07-23 15:14] LABS: MANUAL DIFF FLAG NO
[2025-07-23 15:16] LABS: Hematocrit 49.2 % (42.0-52.0); Hemoglobin 16.5 g/dl (14.0-18.0); Imm Gran Abs Auto 0.03 X10*3/uL (0.00-0.03); Imm Gran Pct Auto 0.2 % (0.0-0.4); Lymphocytes Absolute Auto 1.5 X10*3/uL (1.2-4.9); Mean Corpuscular HGB Conc 33.5 g/dl (31.0-36.0); Mean Corpuscular Hemoglobin 27.9 pg (27.0-33.0); Mean Corpuscular Volume 83.1 fL (80.0-98.0); NRBC Abs Auto 0.000 X10*3/uL (0.0-0.012); NRBC Pct Auto 0.0 /100WBC (0.0-0.2); Platelet Count 369 X10*3/uL (160-400); Red Blood Count 5.92 X10*6/uL (4.60-5.80); White Blood Count 12.7 X10*3/uL (4.8-10.8)
[2025-07-23 15:43] LABS: Troponin-I High Sensitivity < 2.7 ng/L (<3.5-35.0)
[2025-07-23 15:44] LABS: Alanine Aminotransferase 17 U/L (0-40); Albumin Level 5.0 g/dL (3.5-5.0); Alkaline Phosphatase 67 U/L (39-117); Anion Gap 10 (12-20); Aspartate Amino Transferase 25 U/L (5-37); Blood Urea Nitrogen 7 mg/dL (9-16); Calcium 9.8 mg/dL (8.4-10.2); Carbon Dioxide 29 mmol/L (22-29); Chloride 105 mmol/L (96-108); Creatinine Clr Calc Pharmacy 110.5; Estimated Glomerular Filt Rate > 60; Magnesium 2.1 mg/dL (1.6-2.6); Potassium 4.4 mmol/L (3.3-5.1); Sodium 140 mmol/L (135-145); Total Protein 7.8 g/dL (6.5-8.0)
[2025-07-23 17:04] VITALS: BP 124/68; PULSE 74; RESP 16; TEMP 36.9; O2SAT 97
--- OUTSIDE RECORDS SUMMARY | 2025-07-23 19:58 | XMS_ITS | Continuity of Care Document ---
Author Name [facility] Organization [facility] Care Team Providers Care Medical Affairs Leader Name Role Phone [facility] Unavailable Unavailable Problems Combined list of problems from [facility] of [facility] and [facility] facilities. It does not include entries that were removed or entered in error. Problem Status Onset Date Problem Type Date of Resolution Comments Source GERD - Gastro-Esophage al Reflux Disease ([facility] [id number]) Active 1 Condition Oct 13, 2021 Entered By: RACHEL WELDON Comment: followed by VIANNEY HINDS Male infertility Active 0 Condition Jul 02, 2020 Entered By: RACHEL WELDON Comment: referred to urology [facility] Systemic mast cell disease Active 0 Condition Jul 02, 2020 Entered By: RACHEL WELDON Comment: referred to allergy immun[facility] Fracture of shaft of femur, open Active 4 Condition [place] Medications Combined list of outpatient medications from Department of Defense and [facility] facilities.Medications provided include 1) outpatient medications from the last 15 months, and 2) patient-reported medications. Medication Details Route Status Patient Instructions Prescription Expires Prescription Number Last Dispense Date Ordering Provider Order Date Order Qty Source FENTANYL 100MCG/HR PATCH APPLY 1 PATCH TO SKIN NEEDED TRANSD ERMAL ACTIVE SHIRAZ,HOW [facility] LORAZEPAM 2MG TAB TAKE TWO TABLETS BY MOUTH NEEDED ORAL ACTIVE SHIRAZHOW MEGHAN D 2019 [facility] [place] [facility] Allergies, Adverse Reactions, Alerts Combined list of allergies from Department of Defense and Veterans Affairs facilities. It does not include entries that were removed or entered in error. Substance Category Reaction Severity Reaction type Status Date Reported Comments Source ACETAMINOPHEN Drug allergy (disorder) Nausea and Vomiting active 3 [facility] on [facility] ACETAMINOPHEN Propensity to adverse reactions to drug (finding) Nausea and vomiting active 3 [facility] ANTIPYRINE Drug allergy (disorder) Weakness present active 0 [facility] NONSTEROIDAL ANTI-INFLAMMA TORY Propensity to adverse reactions to drug (finding) Weakness present active 0 [facility] TRICYCLIC ANTIDEPRESSAN TS Propensity to adverse reactions to drug (finding) Weakness present active 0 [facility] Immunizations Combined list of available immunizations from the Department of Defense and Veterans Affairs facilities. 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 Location Location Details Encounter Type Encounter Number Reason For Visit Attending Provider ADM Date DC Date Status Disposition Source [facility] Outpatient Encounter [id number] 12/21 [facility] [id number] 12/28 [facility] Outpatient Encounter [id number] AGAPITO TURCIOS ISS[place] 02/11 [facility] Out[facility] Encounter [id number] 04/18 [facility] [place] [facility] Procedures Combined list of: 1) Procedures from Department of Veterans Affairs facilities going back up to thelast 18 months, not all [place] non-surgical procedures are included; 2) All procedures from the Department of Defense facilities. Procedure Procedure Type Code Date Perfomer Comments Sour e EDUCATIONAL SUPPLIES, SUCH A S BOOKS, TAPES, AND PAMPHLETS, FOR THE PATIENT'S EDUCATION AT COST TO PHYSICIAN OR OTHER QUALIFIED HEALTH CONSTRUCTION AREA MANAGER 05/17/2002 [facility] EDUCATIONAL SUPPLIES, SUCH A S BOOKS, TAPES, AND PAMPHLETS, FOR THE PATIENT'S EDUCATION AT COST TO PHYSICIAN OR OTHER QUALIFIED HEALTH CONSTRUCTION AREA MANAGER 05/16/2002 [facility] EDUCATIONAL SUPPLIES, SUCH A S BOOKS, TAPES, AND PAMPHLETS, FOR THE PATIENT'S EDUCATION AT COST TO PHYSICIAN OR OTHER QUALIFIED HEALTH CONSTRUCTION AREA MANAGER 05/15/2002 [facility] EDUCATIONAL SUPPLIES, SUCH A S BOOKS, TAPES, AND PAMPHLETS, FOR THE PATIENT'S EDUCATION AT COST TO PHYSICIAN OR OTHER QUALIFIED HEALTH CONSTRUCTION AREA MANAGER 05/14/2002 [facility] EDUCATIONAL SUPPLIES, SUCH A S BOOKS, TAPES, AND PAMPHLETS, FOR THE PATIENT'S EDUCATION AT COST TO PHYSICIAN OR OTHER QUALIFIED HEALTH CONSTRUCTION AREA MANAGER 05/13/2002 [facility] EDUCATIONAL SUPPLIES, SUCH A S BOOKS, TAPES, AND PAMPHLETS, FOR THE PATIENT'S EDUCATION AT COST TO PHYSICIAN OR OTHER QUALIFIED HEALTH CONSTRUCTION AREA MANAGER 05/12/2002 [facility] EDUCATIONAL SUPPLIES, SUCH A S BOOKS, TAPES, AND PAMPHLETS, FOR THE PATIENT'S EDUCATION AT COST TO PHYSICIAN OR OTHER QUALIFIED HEALTH CONSTRUCTION AREA MANAGER 05/11/2002 [facility] EDUCATIONAL SUPPLIES, SUCH A S BOOKS, TAPES, AND PAMPHLETS, FOR THE PATIENT'S EDUCATION AT COST TO PHYSICIAN OR OTHER QUALIFIED HEALTH CONSTRUCTION AREA MANAGER 05/10/2002 [facility] PHARMACOLOGIC MANAGEMENT, INCLUDING PRESCRIPTION, USE, AND REVIEW OF MEDICATION WITH NO MORE THAN MINIMAL MEDICAL PSYCHOTHERAPY 05/09/2002 [facility] EDUCATIONAL SUPPLIES, SUCH A S BOOKS, TAPES, AND PAMPHLETS, FOR THE PATIENT'S EDUCATION AT COST TO PHYSICIAN OR OTHER QUALIFIED HEALTH CONSTRUCTION AREA MANAGER 05/09/2002 [facility] EDUCATIONAL SUPPLIES, SUCH A S BOOKS, TAPES, AND PAMPHLETS, FOR THE PATIENT'S EDUCATION AT COST TO PHYSICIAN OR OTHER QUALIFIED HEALTH CONSTRUCTION AREA MANAGER 05/08/2002 [facility] PHYS/OTH QUALIFIED HEALTH CONSTRUCTION AREA MANAGER QUALIFIED,EDUCATION,TRAIN,LIC ENSURE/REGULATION (WHEN APPLICABLE) EDUC SER RENDERED TO PATS IN A GRP SETTING (EG,,OBESITY,OR DIABETIC INSTRUCT) 05/07/2002 [facility] EDUCATIONAL SUPPLIES, SUCH A S BOOKS, TAPES, AND PAMPHLETS, FOR THE PATIENT'S EDUCATION AT COST TO PHYSICIAN OR OTHER QUALIFIED HEALTH CONSTRUCTION AREA MANAGER 05/07/2002 [facility] PHARMACOLOGIC MANAGEMENT, INCLUDING PRESCRIPTION, USE, AND REVIEW OF MEDICATION WITH NO MORE THAN MINIMAL MEDICAL PSYCHOTHERAPY 05/06/2002 [facility] EDUCATIONAL SUPPLIES, SUCH A S BOOKS, TAPES, AND PAMPHLETS, FOR THE PATIENT'S EDUCATION AT COST TO PHYSICIAN OR OTHER QUALIFIED HEALTH CONSTRUCTION AREA MANAGER 05/06/2002 [facility] EDUCATIONAL SUPPLIES, SUCH A S BOOKS, TAPES, AND PAMPHLETS, FOR THE PATIENT'S EDUCATION AT COST TO PHYSICIAN OR OTHER QUALIFIED HEALTH CONSTRUCTION AREA MANAGER 05/05/2002 [facility] EDUCATIONAL SUPPLIES, SUCH A S BOOKS, TAPES, AND PAMPHLETS, FOR THE PATIENT'S EDUCATION AT COST TO PHYSICIAN OR OTHER QUALIFIED HEALTH CONSTRUCTION AREA MANAGER 05/04/2002 [facility] EDUCATIONAL SUPPLIES, SUCH A S BOOKS, TAPES, AND PAMPHLETS, FOR THE PATIENT'S EDUCATION AT COST TO PHYSICIAN OR OTHER QUALIFIED HEALTH CONSTRUCTION AREA MANAGER 05/03/2002 [facility] EDUCATIONAL SUPPLIES, SUCH A S BOOKS, TAPES, AND PAMPHLETS, FOR THE PATIENT'S EDUCATION AT COST TO PHYSICIAN OR OTHER QUALIFIED HEALTH CONSTRUCTION AREA MANAGER 05/02/2002 [facility] EDUCATIONAL SUPPLIES, SUCH A S BOOKS, TAPES, AND PAMPHLETS, FOR THE PATIENT'S EDUCATION AT COST TO PHYSICIAN OR OTHER QUALIFIED HEALTH CONSTRUCTION AREA MANAGER 05/01/2002 [facility] EDUCATIONAL SUPPLIES, SUCH A S BOOKS, TAPES, AND PAMPHLETS, FOR THE PATIENT'S EDUCATION AT COST TO PHYSICIAN OR OTHER QUALIFIED HEALTH CONSTRUCTION AREA MANAGER 04/30/2002 [facility] EDUCATIONAL SUPPLIES, SUCH A S BOOKS, TAPES, AND PAMPHLETS, FOR THE PATIENT'S EDUCATION AT COST TO PHYSICIAN OR OTHER QUALIFIED HEALTH CONSTRUCTION AREA MANAGER 04/29/2002 [facility] EDUCATIONAL SUPPLIES, SUCH A S BOOKS, TAPES, AND PAMPHLETS, FOR THE PATIENT'S EDUCATION AT COST TO PHYSICIAN OR OTHER QUALIFIED HEALTH CONSTRUCTION AREA MANAGER 04/28/2002 [facility] EDUCATIONAL SUPPLIES, SUCH A S BOOKS, TAPES, AND PAMPHLETS, FOR THE PATIENT'S EDUCATION AT COST TO PHYSICIAN OR OTHER QUALIFIED HEALTH CONSTRUCTION AREA MANAGER 04/27/2002 [facility] PREPARATION OF REPORT OF PATIENT'S PSYCHIATRIC STATUS, HISTORY, TREATMENT, OR PROGRESS (OTHER THAN FOR LEGAL OR CONSULTATIVE PURPOSES) FOR OTHER INDIVIDUALS, AGENCIES, OR INSURANCE CARRIERS 04/26/2002 [facility] RADIOLOGIC EXAMINATION; NECK , SOFT TISSUE 10/05/2001 [facility] DISSECTION, DEEP JUGULAR NODE(S) 10/01/2001 [facility] PHYS/OTH QUALIFIED HEALTH CONSTRUCTION AREA MANAGER QUALIFIED,EDUCATION,TRAIN,LIC ENSURE/REGULATION (WHEN APPLICABLE) EDUC SER RENDERED TO PATS IN A GRP SETTING (EG,,OBESITY,OR DIABETIC INSTRUCT) 09/24/2001 [facility] RADIOLOGIC EXAMINATION, COMPLETE ACUTE ABDOMEN SERIES, INCLUDING [...] EXTREMITY (EXCLUDING HAND) OR TRUNK 08/01/2001 [facility] Social History Combined list of available smoking, tobacco, and other social history from Department of Defense and Veterans Affairs facilities. Social History Type Response Date Comment Sour e Tobacco smoking status [facility] VA-TOBACCO FORMER USER 11/29/2022 [facility] of [facility] of [facility] < 15 Y[facility] 06/18/2020 [facility] [place] [facility] History of tobacco use CURRENT SMOKER 05/16/2005 [place] History of tobacco use HISTORY OF SMOKING 02/10/2004 recently quit [place] This section is an empty social history section. [facility] Advance Directives List of completed, amended, or rescinded Advance Directives on record at Department of Veterans Affairs facilities. An actual copy of the Directive is not included. Date Advance Directive Provider Source 12/26/2022 ADVANCE DIRECTIVE SHANDA MEDINA DE [facility] [place] [facility]
--- OUTSIDE RECORDS SUMMARY | 2025-07-23 19:59 | XMS_ITS | Clinical Summary ---
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 Active hydromorphone HCl (DILAUDID ORAL) Take 4 mg by mouth. Active TESTOSTERONE IM Inject into the muscle. Active LORazepam (ATIVAN) 0.5 MG tablet Take 0.5 mg by mouth 3 (three) times a day. Active dextroamphetamine -amphetamine (ADDERALL) 5 mg Tab 5 mg 2 (two) times a day. Active cromolyn sodium (CROMOLYN ORAL) Take 200 mL by mouth 4 (four) times a day. Active therapeutic multivitamin tablet Take 1 tablet by mouth daily. Active cholecalciferol (VITAMIN D3) 400 unit tablet Take 400 Units by mouth daily. Active MILK THISTLE ORAL Take by mouth. Active ondansetron (ZOFRAN) 4 MG tablet Take 4 mg by mouth every 8 (eight) hours as needed for nausea. Active Social History Tobacco Use Types Packs/Day Years Used Date Smoking Tobacco: Never Smokeless Tobacco: Never Education Answer Date Recorded Are you interested in more education? Not on sarah e 03/24/2023 Are you concerned about learning? Not on file 03/24/2023 No 03/24/2023 No 03/24/2023 Digital Access Answer Date Recorded No 04/21/2023 No 04/21/2023 No 04/21/2023 Reliable internet access at home? Not on file 04/21/2023 Device with a working camera? Not on file Sex and Gender Information Value Date Recorded Sex Assigned at Not on file Legal Sex Male 9:19 PM EDT Gender Identity Not on file Sexual Orientation Not on file Last Filed Vital Signs Vital Sign Reading Time Taken Comments Blood Pressure 129/91 10/24/2018 4:01 PM EST Pulse 87 10/24/2018 4:01 PM EST Temperature 36.6 C (97.9 F) 10/24/2018 3:59 PM EST Respiratory Rate - - Oxygen Saturation 96% 10/24/2018 3:59 PM EST Inhaled Oxygen Concentration - - Weight 69.9 kg (154 lb) 10/24/2018 3:59 PM EST Height 177.8 cm (5' 10 ) 10/24/2018 3:59 PM EST Body Mass Index 22.1 10/24/2018 3:59 PM EST Plan of Treatment Health Maintenance Due Date Last Done Comments DEPRESSION SCREENING 1994 HEPATITIS C SCREENING 2000 HIV ONE-TIME SCREENING (18-6 5 YEARS) 2000 Adult Td,Tdap Booster 09/15/2019 09/15/2009 LIPID PANEL 05/01/2023 05/01/2018 COVID-19 VACCINE (2023-2 5 season) 2024 SMOKING STATUS SCREENING (On ce After 26 Yrs) Completed 10/24/2018 HEPATITIS A VACCINES Aged Out No long er eligible based on patient's age to complete this topic HIB VACCINES Aged Out No longer eligi ble based on patient's age to complete this topic MENINGOCOCCAL VACCINES (ACWY) Aged Out No longer eligible based on patient's age to complete this topic MENINGOCOCCAL VACCINES (B) Aged Out N o longer eligible based on patient's age to complete this topic PNEUMOCOCCAL VACCINES (0-49 years) Aged Out No longer eligible based on patient's age to complete this topic Medical Devices Not on file Insurance MEDICARE PART A & B MEDICARE PART A & B MEDICARE PART A & B MEDICARE PART A & B MEDICARE PART A & B MEDICARE PART A & B MEDICARE PART A & B MEDICARE PART A & B MEDICARE PART A & B 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 It is not the complete legal health record.[facility]
[2025-07-23] MEDS: iohexoL 350 MG/ML 100 ML INFUS..BTL 85 ML IV (21:36)
[2025-07-23 21:41] LABS: Lipase 40 U/L (8-78)
[2025-07-23 21:55] VITALS: BP 132/85; PULSE 78; RESP 16; TEMP 36.6; O2SAT 98
[2025-07-23 22:55] VITALS: BP 104/86; PULSE 74; RESP 16; O2SAT 99
[2025-07-23 23:08] LABS: Appearance Urine Clear; Glucose Urine UA Negative (Negative); PH 6.0 (5.0-9.0); Specific Gravity - Urine 1.010 (1.005-1.025)
[2025-07-23] MEDS: Lidocaine HCl Viscous 2 % 15 ML SOLUTION MUCOUS MEM (23:35)
[2025-07-23] MEDS: Magnesium Hydrox/Alum Hydrox 30 ML ORAL.SUSP PO (23:35)
[2025-07-24 02:14] VITALS: BP 104/86; PULSE 74; RESP 16; TEMP -17.7; TEMP 0; O2SAT 99
== END 2025-07-24 02:18 | disposition home or self-care (01) ==
PROVIDERS: Physician Assistant Medical; Emergency Provider Student in an Organized Health Care Education/Training Program
DX: R10.9 Unspecified abdominal pain (principal); R07.9 Chest pain, unspecified; R51.9 Headache, unspecified; R19.7 Diarrhea, unspecified; Z79.899 Other long term (current) drug therapy
CPT/HCPCS: 36415; 71046; 74177; 80048; 80076; 81003; 83520; 83690; 83735; 84443; 84484; 85025; 93005; 96361; 96374; 99285; J1171; Q9967

== ENCOUNTER → 2025-07-23 13:58 | Outpatient (BNV) | payer MEDICARE, SELFPAY | PROVIDERS: Emergency Provider Student in an Organized Health Care Education/Training Program; Visit Provider Internal Medicine | DX: R94.31 Abnormal electrocardiogram [ECG] [EKG] (principal); R07.9 Chest pain, unspecified | CPT/HCPCS: 93010 ==

== ENCOUNTER → 2025-07-23 14:37 | Outpatient (BNV) | payer MEDICARE, SELFPAY | PROVIDERS: Visit Provider Radiology Diagnostic Radiology | DX: R07.9 Chest pain, unspecified (principal) | CPT/HCPCS: 71046 ==